=== PATIENT | female | born 1970 | race Caucasian/White ===

== ENCOUNTER 2018-08-04 20:33 | Inpatient (IN) | payer OTHER, SELFPAY ==
[2018-08-04 20:34] VITALS: BP 130/79; PULSE 125; RESP 18; TEMP 38.2; O2SAT 94; BMI 21.7
--- NOTE | 2018-08-04 21:35 | RAD_ITS ---
STUDY: X-RAY CHEST REASON FOR EXAM: Female, 48 years old. Cough and fever. TECHNIQUE: Frontal and lateral views of the chest. COMPARISON: None. FINDINGS: The lungs are clear and expanded. There is no demonstrated pleural abnormality. Normal size heart. Normal mediastinum and yudelka. Normal visualized pulmonary arteries. Normal visualized aortic arch and descending thoracic aorta. Normal visualized thoracic spine. Normal visualized ribs, clavicles, and shoulders. There is no demonstrated abnormality of the visualized soft tissue structures of the upper abdomen. RAD/Chest PA and Lateral IMPRESSION: Normal x-ray examination of the chest. Electronically Signed: Paul Leo MD at 22:00 EST , Service support ,
--- NOTE | 2018-08-04 21:57 | ED.DCSUM_ITS ---
- ER Visit Summary Date of Service: 08/04/18 Chief Complaint: Cough History of Present Illness: The patient is a 48 F presenting with cough, shortness of breath. She states this has been ongoing for the past month. She initially was out of town and was seen by an out-of-town nurse practitioner. She was given amoxicillin and prednisone. She states she these medications. She went to urgent care 2 weeks ago was given doxycycline and prednisone. She also finished these medications. She continues to have wheezing and cough. She complains of subjective fever. She denies chest pain. Denies other complaints. Physical Examination: Vitals are stable. Temperature 100.7, heart rate 125. alert no acute distress. HEENT exam is unremarkable. Neck is supple. Lungs are expiratory wheezing bilaterally. Heart is regular rate and rhythm. Abdomen is soft nontender nondistended. Extremities are unremarkable. Skin is warm and dry. No focal neurologic deficit. Remainder of exam is unremarkable. Emergency Department Course and Treatment: Patient was given albuterol, Atrovent aerosol. While in the ED her pulse ox checked dropped to 84-86% on room air. Chest x-ray shows no acute process. Influenza negative. Hemoglobin 11.6. Chemistries unremarkable. D-dimer negative. She was given Solu-Medrol IV. Discussed with the hospitalist for admission. Disposition: Admission Impression: Asthma exacerbation, hypoxia, URI, failed outpatient treatment This note was generated with [employer] dictation software. It may contain incorrect words, spelling, and punctuation that were not noted in review of the chart prior to signing ED Disposition - Plan for ED Patient: Chief Complaint: Cold Sx Referrals: Hali Baca MD [Primary Care Provider] -
[2018-08-04] MEDS: Albuterol 2.5 MG/3 ML VIAL.NEB. INHALATION ×2 (22:02)
[2018-08-04] MEDS: Ipratropium/Albuterol Sulfate 3 ML AMPUL.NEB INHALATION (22:02)
[2018-08-04 22:03] VITALS: PULSE 122; RESP 18
[2018-08-04] MEDS: Ibuprofen 600 MG Tablet PO (22:32)
[2018-08-04 22:34] VITALS: BP 112/73; PULSE 130; RESP 16; TEMP 37.6; O2SAT 88
[2018-08-04 22:37] VITALS: O2SAT 88
[2018-08-04 22:47] VITALS: O2SAT 92
[2018-08-04 22:53] VITALS: BP 130/76; PULSE 126; RESP 16; O2SAT 92
[2018-08-04 23:00] LABS: Absolute Lymphocyte Count 0.89 X10^3/ul (0.83-4.51); Absolute Neutrophil Count 6.7 X10^3/uL (2.0-7.7); Basophil# 0.02 X10^3/uL; Basophil% 0.2 % (0-1); Eosinophil# 0.03 X10^3/uL; Eosinophils% 0.4 % (0-5); Hemoglobin 11.6 g/dl (12.0-15.0); Lymphocyte # 0.89 X10^3/ul (4.0); Mean Corp Hgb Conc 30.5 g/gl (32-36); Mean Corpuscular Hgb 27.6 pg (27.0-32.0); Mean Corpuscular Volume 90.3 fL (81-99); Monocyte# 0.38 X10^3/uL; Monocyte% 4.7 % (0-10); Neutrophil # 6.72 X10^3/uL (2.7-7.7); Neutrophil % 83.5 % (47-70); Platelet Count 277 K/mm3 (150-450); RBC Distribution Width CV 15.5 % (11.6-14.6); RBC Distribution Width SD 50.8 fl (35.1-43.9); Red Blood Count 4.21 M/mm3 (4.2-5.4); White Blood Count 8.1 K/mm3 (4.4-11.0)
[2018-08-04 23:10] LABS: Anion Gap 9 (5-15); BUN 6 mg/dL (7-18); BUN/Creat Ratio 11.6 RATIO (10-20); Calcium,Total 8.4 mg/dL (8.5-10.1); Chloride 101 mmol/L (98-107); Creatinine, Serum 0.52 mg/dL (0.55-1.02); EST Glomerular Filtration Rate 136 mL/min (>60); Est Glom Filt Rate - Afr Amer 164 mL/min (>60); Glucose 114 mg/dL (74-106); Potassium 3.5 mmol/L (3.5-5.1); Sodium Level 135 mmol/L (136-145)
[2018-08-04 23:14] LABS: POSITIVE COUNT NO; POSITIVE DIFFERENTIAL NO; POSITIVE MORPHOLOGY NO
[2018-08-04 23:23] LABS: D-Dimer Quantitative (DVT/PE) 0.32 FEU/ug/m (0.27-0.49)
--- NOTE | 2018-08-04 23:31 | HP.PCM_ITS ---
Problem List (1) Asthma exacerbation Status: Acute Qualifiers: Asthma severity: unspecified severity Asthma persistence: unspecified Qualified Code(s): J45.901 - Unspecified asthma with (acute) exacerbation (2) Hypoxia Status: Acute (3) Hypothyroidism Status: Chronic Qualifiers: Hypothyroidism type: unspecified Qualified Code(s): E03.9 - Hypothyroidism, unspecified (4) Anxiety and depression Status: Chronic (5) Tobacco use Status: Chronic History of Present Illness Date of Admission: 08/04/18 Chief Complaint: Cough, Dyspnea, Wheezing The patient is a 48 y/o F w/ PMHx: Asthma, Hypothyroidism, Anxiety and Depression, Prolonged Cigarette Tobacco usage who presents to the [facility] ED on 08/04/18 with history of onset ~ 2 weeks prior URI symptoms including harsh dry cough, dyspnea, wheezing as well as nausea, emesis, diarrhea, myalgias and arthralgias but seems to improve however recurrent ongoing progressively worsening dyspnea, wheezing as well as congestion and dry harsh cough despite 2 rounds of antibiotic therapy per urgent care, amoxicillin and doxycycline as well as prednisone course x2. She denies having ever seen pulmonary medicine. She notes that she is attempting tobacco cessation and states she is currently wearing a 21 mg nicotine patch. In the emergency room workup included T 99.7, heart rate 130, BP 112/73, respiratory rate 16, initial oxygenation 88% on room air with improvement to 95% on 2 L nasal cannula, CBC with WBC 8.1, hemoglobin 11.6, platelet 277 with left shift, d-dimer 0.32, BMP with sodium 135, BUN/Cr 6/0.52, glucose 114, rapid influenza unremarkable, respiratory viral panel pending, chest x-ray with no acute cardiopulmonary findings. 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 Past Medical History Past Medical History (Chronic Problems): Chronic Problems Hypothyroidism (Chronic) Anxiety and depression (Chronic) Tobacco use (Chronic) Allergies hydrocodone bitartrate [From Vicodin] Allergy (Verified 06/05/14 12:23) Angioedema shellfish derived Allergy (Verified 02/08/14 18:16) Anaphylaxis Home Medications: Ambulatory Orders Medication Instructions Recorded Lorazepam [Ativan] 0.5 mg PO DAILY PRN PRN 06/02/14 Multivitamins,Therapeutic 1 tablet PO DAILY 06/02/14 [Multivitamin] Potassium (Otc) [Potassium OTC] 99 mg PO DAILY 06/02/14 Levothyroxine [Synthroid] 75 mcg PO DAILY 08/04/18 Surgical History: - - x2, right knee arthroscopic surgery, cone procedure for cervical dysplasia. Psychiatric History: Anxiety, Depression [employer] History: No pertinent [employer] history Lives: Spouse/ Significant Other Smoking Status: Current every day smoker - Ongoing cigarette tobacco usage 1.5 pack/day since age 19 although she does note she did quit for approximately 4.5 years. Tobacco Use: Cigarettes Alcohol: Occasional Drugs: None - *Family History Maternal History Items: Diabetes, Heart Disease, Hypertension Paternal History Items: Diabetes, Heart Disease, Hypertension Review of Systems Constitutional: Reports: Anorexia, Fever, Malaise, Weakness, Fatigue. Denies: Chills, Weight Change HEENT: Reports: Head Aches, Post Nasal Drip, Sinus Congestion, Sinus Drainage, Sore Throat Cardiovascular: Denies: Chest Pain, Palpitations Respiratory: Reports: Cough, Shortness of Breath, Shortness of breath at rest, Shortness of breath upon exertion, Sputum production, Wheezing Gastrointestinal: Reports: Diarrhea, Nausea, Vomiting. Denies: Abdominal Pain Genitourinary: Denies: Dysuria Musculoskeletal: Reports: Joint Pain, Muscle pain. Denies: Joint Tenderness Skin: Denies: Rash, Wounds Neurological: Denies: Numbness, Tingling, Focal weakness Psychiatric: Reports: Anxiety, Depression. Denies: Homicidal Ideations, Suicidal Ideations Hematologic/ Lymphatic: Denies: Easy Bruising, Easy Bleeding VTE Information - Inpt Only VTE Present on Admission: No VTE Mechan Device Prophylaxis: SCD's VTE Pharm Prophylaxis ordered?: Yes Patient Problems: Active and Suspected Problems Asthma exacerbation (Acute) Hypoxia (Acute) Subjective: Seated upright in the ED, fatigued appearance, no acute distress. Objective: Physical Examination: General: awake, alert, oriented x 3 and cooperative, seated upright in the ED bed in no apparent distress, fatigued appearance. Skin: normal color, turgor, no icterus, cyanosis. HEENT: AT/NC, EOMI, PERRLA, dry MM, no carotid bruits or JVD noted. Lungs: Diminished BS BL, > bases, diffuse rhonchi, diffuse wheezing. Heart: Tachycardic with regular rhythm; no gallop, rub audible. Abdomen: soft, NTTP, ND, normal BS, no HSM. Extremities: no cyanosis, clubbing, or edema. Neurological: patient awake, alert, oriented x 3; cognitive function intact; pupils equally reactive to light and accomodation; cranial nerves II-XII grossly normal, moving all 4 extremities, no focal deficits, strength severely globally decreased secondary to acute presentation. Psychiatric: affect appears flat, fatigued, no acute evidence of depressive or anxiety feelings. - Physical Exam Vital Signs Temp Pulse Resp BP Pulse Ox 99.7 F H 126 H 16 130/76 H 92 08/04/18 22:34 08/04/18 22:53 08/04/18 22:53 08/04/18 22:53 08/04/18 22:53 Oxygen Flow Rate (L/min) 2 Oxygen Delivery Method Nasal Cannula Weight: 110 lb 14.28 oz Body Mass Index (BMI) 21.7 Microbiology Past 72 Hours 08/04/18 21:30 Influenza Types A,B Direct FA (CODI) - Final Mucosa - Nasopharyngeal Laboratory Tests Past 24 Hrs 08/04/18 08/04/18 08/04/18 22:50 22:50 22:50 WBC 8.1 RBC 4.21 Hgb 11.6 L Hct 38.0 MCV 90.3 MCH 27.6 MCHC 30.5 L RDW 15.5 H RDW Differential 50.8 H Plt Count 277 MPV 9.0 Immature Gran % (Auto) 0.200 Neut % (Auto) 83.5 H Lymph % (Auto) 11.0 L [place] % (Auto) 4.7 Eos % (Auto) 0.4 Baso % (Auto) 0.2 Absolute Neuts (auto) 6.7 Absolute Lymphs (auto) 0.89 Total Counted Not Reportable D-Dimer Quant (PE/DVT) 0.32 Sodium 135 L Potassium 3.5 Chloride 101 Carbon Dioxide 25.0 Anion Gap 9 BUN 6 L Creatinine 0.52 L Estim Creat Clear Calc 97.10 Est GFR (MDRD) Af Amer 164 Est GFR (MDRD) Non-Af 136 BUN/Creatinine Ratio 11.6 Glucose 114 H Calcium 8.4 L Assessment/Plan All Active Problems Asthma exacerbation (Acute) Hypoxia (Acute) The patient is a 48 y/o F w/ PMHx: Asthma, Hypothyroidism, Anxiety and Depression, Prolonged Cigarette Tobacco usage who presents to the [facility] ED on 08/04/18 with history of onset ~ 2 weeks prior URI symptoms including harsh dry cough, dyspnea, wheezing as well as nausea, emesis, diarrhea, myalgias and arthralgias but seems to improve however recurrent ongoing progressively worsening dyspnea, wheezing as well as congestion and dry harsh cough despite 2 rounds of antibiotic therapy per urgent care, amoxicillin and doxycycline as well as prednisone course x2. (1) Hypoxia secondary to Acute on Chronic Asthma, Possible COPD exacerbation secondary to suspected Acute Viral Syndrome: CXR w/ chronic changes, CBC on admission w/ no marked WBC elevation with mild shift, no respiratory distress noted upon evaluation but noted hypoxia upon presentation, improved with oxygen supplementation. Will admit to MS telemetry given ongoing notable tachycardia although possible secondary to aerosols in addition, maintain on oxygen with wean as tolerated to room air, continue ATC duonebs, PRN albuterol, IV methylprednisolone with prednisone transition, HOB, IS parameters, defer abx as suspected viral, pending respiratory viral panel, obtain sputum cultures. Would benefit from pulmonary evaluation after discharge with PFTs once clinically appropriate. (2) Hyponatremia, mild, suspected hypovolemia: Admission sodium mildly decreased, 135, likely secondary to dehydration with poor intake, recent viral syndrome with GI losses although had improved, continue to hydrate, repeat BMP in a.m. (3) Hypothyroidism: Continue home synthroid regimen. (4) Tobacco Abuse: Encouraged cessation, inpatient consultation per RT, NR if desired. (5) Anxiety and depression: We will continue home Ativan regimen, encourage consideration SSRI outpatient especially given concurrent depression and anxiety this would be first-line. (6) VT prophylaxis: SCD, Lovenox. Code Visit Inpatient E&M: 25534 Init Hosp L3
[2018-08-05] VITALS (17 sets, daily range): BP systolic 97–118; BP diastolic 55–78; PULSE 98–135; RESP 16–24; TEMP 36.6–37.1; O2SAT 94–99; BMI 21.2; BMI 21.3
[2018-08-05] MEDS: MethylPREDNISolone 125 MG/2 ML Vial IV (00:10)
[2018-08-05] MEDS: 0.9% Normal Saline 1,000 ML 125 ML IV ×2 (01:37→08:53)
[2018-08-05] MEDS: Ipratropium/Albuterol Sulfate 3 ML AMPUL.NEB INHALATION ×6 (02:20→22:43)
[2018-08-05] MEDS: Levothyroxine 75 MCG Tablet PO (06:14)
[2018-08-05 06:35] LABS: Anion Gap 11 (5-15); BUN 7 mg/dL (7-18); Calcium,Total 8.4 mg/dL (8.5-10.1); Chloride 105 mmol/L (98-107); Creatinine, Serum 0.87 mg/dL (0.55-1.02); EST Glomerular Filtration Rate 74 mL/min (>60); Est Glom Filt Rate - Afr Amer 90 mL/min (>60); Estimated Creatinine Clearance 61.99 ml/min; Glucose 193 mg/dL (74-106); Sodium Level 140 mmol/L (136-145)
[2018-08-05 06:47] LABS: Absolute Lymphocyte Count 0.31 X10^3/ul (0.83-4.51); Absolute Neutrophil Count 5.6 X10^3/uL (2.0-7.7); Basophil# 0.02 X10^3/uL; Basophil% 0.3 % (0-1); Hematocrit 37.3 % (37-47); Hemoglobin 11.6 g/dl (12.0-15.0); Lymphocyte # 0.31 X10^3/ul (4.0); Lymphocyte % 5.1 % (19-41); Mean Corp Hgb Conc 31.1 g/gl (32-36); Mean Corpuscular Hgb 28.3 pg (27.0-32.0); Mean Platelet Vol. 9.3 fl (6.2-12.0); Monocyte# 0.12 X10^3/uL; Neutrophil # 5.62 X10^3/uL (2.7-7.7); Neutrophil % 92.4 % (47-70); Platelet Count 288 K/mm3 (150-450); RBC Distribution Width CV 15.5 % (11.6-14.6); RBC Distribution Width SD 50.7 fl (35.1-43.9); White Blood Count 6.1 K/mm3 (4.4-11.0)
[2018-08-05 06:50] LABS: Differential Indicated SCAN CRITERIA MET; POSITIVE COUNT NO; POSITIVE DIFFERENTIAL YES; POSITIVE MORPHOLOGY NO
[2018-08-05] MEDS: Famotidine 20 MG Tablet PO ×2 (08:54→22:19)
[2018-08-05] MEDS: guaiFENesin 1,200 MG Tablet 1200 MG PO ×2 (08:54→22:18)
[2018-08-05] MEDS: Acetaminophen 325 MG Tablet 650 MG PO ×2 (08:54→16:50)
[2018-08-05] MEDS: Multivitamins,Therapeutic Tablet 1 TABLET PO (08:54)
[2018-08-05] MEDS: Enoxaparin 40 MG/0.4 ML Syringe SC (08:55)
--- NOTE | 2018-08-05 12:41 | CASEMGMT ---
RN CM Assessment Presentation: cough, dyspnea, wheezing. Asthma exacerbation PCP: Dr. Baca [facility] Insurance: MMO TPA Prescription Benefit: yes LNOK: Guille Berg Living Arrangements: Lives independently with Transportation: drives DME/HHC: nebulizer, states her medication is from her family member. she does not have own script for aeresols. DC PLAN: Home on dc. If aeresols are needed, pt will need prescription. Sadie HALL RN ACM
--- NOTE | 2018-08-05 13:15 | PCM.PN.HOSP ---
Patient Problems: Active and Suspected Problems Asthma exacerbation (Acute) Hypoxia (Acute) Subjective: Patient was seen and examined. She feels improved. Not on oxygen, denies any fever or chills. Been coughing a lot. Chest discomfort with frequent coughing. Vitals/I&O's: Vital Signs Temp Pulse Resp BP Pulse Ox 98.2 F 101 H 20 H 116/78 95 08/05/18 10:19 08/05/18 10:57 08/05/18 10:57 08/05/18 10:19 08/05/18 10:19 Oxygen Flow Rate (L/min) 96 Oxygen Delivery Method Room Air Weight: 48.6 kg Body Mass Index (BMI) 21.2 Intake and Output for Last 24 Hours 08/03/18 08/04/18 08/05/18 23:59 23:59 23:59 Intake Total 979 / 979 Balance 979 / 979 General: Alert, Oriented x3, Cooperative, No apparent distress HEENT: Atraumatic, PERRLA, EOMI, Normocephalic Oral: Moist Mucosa Neck: Supple, No JVD, Negative Carotid Bruits Lungs: Diminished, Wheezes - ++ Cardiovascular: Regular rate, Regular Rhythm, Normal S1, Normal S2, No murmurs Abdomen: Bowel Sounds Present, Soft, Non Tender, Non-Distended, No Hepato-splenomegaly Extremities: No edema Skin: No rashes, No breakdown Musculoskeletal: No Tenderness to Palpation of Joints or Extremities Lymphatic: No Cervical, Supraclavicular, or Inguinal Adenopathy Neurological: Cranial nerves II-XII grossly intact, Neuro grossly intact Psych/Mental Status: Normal Affect, Appropriate Microbiology Past 72 Hours 08/05/18 06:50 Sputum, Expectorated/Coughed Gram Stain - Final 08/04/18 21:30 Mucosa - Nasopharyngeal Influenza Types A,B Direct FA (CODI) - Final Laboratory Results 08/04/18 22:50: WBC 8.1, RBC 4.21, Hgb 11.6 L, Hct 38.0, MCV 90.3, MCH 27.6, MCHC 30.5 L, RDW 15.5 H, RDW Differential 50.8 H, Plt Count 277, MPV 9.0, Immature Gran % (Auto) 0.200, Neut % (Auto) 83.5 H, Lymph % (Auto) 11.0 L, [place] % (Auto) 4.7, Eos % (Auto) 0.4, Baso % (Auto) 0.2, Absolute Neuts (auto) 6.7, Absolute Lymphs (auto) 0.89, Total Counted Not Reportable 08/04/18 22:50: D-Dimer Quant (PE/DVT) 0.32 08/04/18 22:50: Sodium 135 L, Potassium 3.5, Chloride 101, Carbon Dioxide 25.0, Anion Gap 9, BUN 6 L, Creatinine 0.52 L, Estim Creat Clear Calc 97.10, Est GFR (MDRD) Af Amer 164, Est GFR (MDRD) Non-Af 136, BUN/Creatinine Ratio 11.6, Glucose 114 H, Calcium 8.4 L 08/05/18 05:40: WBC 6.1, RBC 4.10 L, Hgb 11.6 L, Hct 37.3, MCV 91.0, MCH 28.3, MCHC 31.1 L, RDW 15.5 H, RDW Differential 50.7 H, Plt Count 288, MPV 9.3, Immature Gran % (Auto) 0.200, Neut % (Auto) 92.4 H, Lymph % (Auto) 5.1 L, [place] % (Auto) 2.0, Eos % (Auto) 0.0, Baso % (Auto) 0.3, Absolute Neuts (auto) 5.6, Absolute Lymphs (auto) 0.31 L, Total Counted Not Reportable 08/05/18 05:40: Sodium 140, Potassium 4.0, Chloride 105, Carbon Dioxide 24.0, Anion Gap 11, BUN 7, Creatinine 0.87, Estim Creat Clear Calc 61.99, Est GFR (MDRD) Af Amer 90, Est GFR (MDRD) Non-Af 74, BUN/Creatinine Ratio 8.0 L, Glucose 193 H, Calcium 8.4 L Current Medications Acetaminophen (Tylenol) 650 mg PO Q6H PRN PRN PRN Reason: Mild Pain (scale 0-3)/T>100.7 Last Admin: 08/05/18 08:54 Dose: 650 mg Al Hydroxide/Mg Hydroxide (Mylanta Ii) 30 ml PO Q6H PRN PRN PRN Reason: Gastric burning Albuterol Sulfate (Ventolin Aerosols) 2.5 mg INHALATION Q2H PRN PRN PRN Reason: SHORTNESS OF BREATH Albuterol/Ipratropium (Duoneb) 3 ml INHALATION Q4H.RT [facility] Last Admin: 08/05/18 10:57 Dose: 3 ml Enoxaparin Sodium (Lovenox) 40 mg SC DAILY@1000 [facility] Last Admin: 08/05/18 08:55 Dose: 40 mg Famotidine (Pepcid) 20 mg PO BID [facility] Last Admin: 08/05/18 08:54 Dose: 20 mg Guaifenesin (Mucinex) 1,200 mg PO BID [facility] Last Admin: 08/05/18 08:54 Dose: 1,200 mg Guaifenesin (Robitussin Dm) 10 ml PO Q6H PRN PRN PRN Reason: COUGH Hydralazine HCl (Apresoline Iv) 10 mg IV Q4H PRN PRN PRN Reason: SBP > 160 Levothyroxine Sodium (Synthroid) 75 mcg PO DAILY@0600 [facility] Last Admin: 08/05/18 06:14 Dose: 75 mcg Lorazepam (Ativan) 0.5 mg PO DAILY PRN PRN PRN Reason: ANXIETY Magnesium Hydroxide (Milk Of Magnesia) 30 ml PO DAILY PRN PRN PRN Reason: Constipation Methylprednisolone (Solu-Medrol) 40 mg IV Q8 [facility] Last Admin: 08/05/18 06:14 Dose: 40 mg [facility] Last Admin: 08/05/18 08:54 Dose: 1 tablet Nicotine (Nicoderm Cq (Pbkc)) 21 mg TRANSDERM. DAILY [facility] Last Admin: 08/05/18 08:53 Dose: 21 mg Nicotine Polacrilex (Rugby Nicotine (Bkc)) 2 mg PO Q2H PRN PRN PRN Reason: Nicotine Craving Ondansetron HCl (Zofran) 4 mg IV Q8H PRN PRN PRN Reason: NAUSEA Sodium Chloride () 5 - 15 ml IV UD PRN PRN Reason: SALINE FLUSH Medical Necessity - Tobacco Use Smoking Status: Current every day smoker Tobacco Use: Cigarettes Assessment/Plan All Active Problems Asthma exacerbation (Acute) Hypoxia (Acute) 48-year-old female past medical history of asthma, hypertension, anxiety, depression, nicotine dependence who comes in with complaints of cough, dyspnea and wheezes. Admitting chest x-ray shows no pneumonia. 1. Acute asthma exacerbation, hypoxia is resolved, patient appears minimally improved, still has wheezes, respiratory panel is pending, will continue on IV Solu-Medrol, breathing treatments, follow-up with sputum cultures, viral panel. 2. Hyponatremia, hypovolemic secondary to dehydration, resolved with IV fluids 3. Hypothyroidism, on Synthroid 4. Nicotine dependence, advised to quit, on replacement 5. Anxiety/depression, on prn ativan 6. DVT prophylaxis with Lovenox subcu Code Visit Inpatient E&M: 49780 Subs Hosp L2
--- NOTE | 2018-08-05 13:21 | PN_ITS ---
Patient Problems: Active and Suspected Problems Asthma exacerbation (Acute) Hypoxia (Acute) Subjective: Patient was seen and examined. She feels improved. Not on oxygen, denies any fever or chills. Been coughing a lot. Chest discomfort with frequent coughing. Vitals/I&O's: Vital Signs Temp Pulse Resp BP Pulse Ox 98.2 F 101 H 20 H 116/78 95 08/05/18 10:19 08/05/18 10:57 08/05/18 10:57 08/05/18 10:19 08/05/18 10:19 Oxygen Flow Rate (L/min) 96 Oxygen Delivery Method Room Air Weight: 48.6 kg Body Mass Index (BMI) 21.2 Intake and Output for Last 24 Hours 08/03/18 08/04/18 08/05/18 23:59 23:59 23:59 Intake Total 979 / 979 Balance 979 / 979 General: Alert, Oriented x3, Cooperative, No apparent distress HEENT: Atraumatic, PERRLA, EOMI, Normocephalic Oral: Moist Mucosa Neck: Supple, No JVD, Negative Carotid Bruits Lungs: Diminished, Wheezes - ++ Cardiovascular: Regular rate, Regular Rhythm, Normal S1, Normal S2, No murmurs Abdomen: Bowel Sounds Present, Soft, Non Tender, Non-Distended, No Hepato- splenomegaly Extremities: No edema Skin: No rashes, No breakdown Musculoskeletal: No Tenderness to Palpation of Joints or Extremities Lymphatic: No Cervical, Supraclavicular, or Inguinal Adenopathy Neurological: Cranial nerves II-XII grossly intact, Neuro grossly intact Psych/Mental Status: Normal Affect, Appropriate Microbiology Past 72 Hours 08/05/18 06:50 Sputum, Expectorated/Coughed Gram Stain - Final 08/04/18 21:30 Mucosa - Nasopharyngeal Influenza Types A,B Direct FA (CODI) - Final Laboratory Results 08/04/18 22:50: WBC 8.1, RBC 4.21, Hgb 11.6 L, Hct 38.0, MCV 90.3, MCH 27.6, MCHC 30.5 L, RDW 15.5 H, RDW Differential 50.8 H, Plt Count 277, MPV 9.0, Immature Gran % (Auto) 0.200, Neut % (Auto) 83.5 H, Lymph % (Auto) 11.0 L, [place] % (Auto) 4.7, Eos % (Auto) 0.4, Baso % (Auto) 0.2, Absolute Neuts (auto) 6.7, Absolute Lymphs (auto) 0.89, Total Counted Not Reportable 08/04/18 22:50: D-Dimer Quant (PE/DVT) 0.32 08/04/18 22:50: Sodium 135 L, Potassium 3.5, Chloride 101, Carbon Dioxide 25.0, Anion Gap 9, BUN 6 L, Creatinine 0.52 L, Estim Creat Clear Calc 97.10, Est GFR (MDRD) Af Amer 164, Est GFR (MDRD) Non-Af 136, BUN/Creatinine Ratio 11.6, Glucose 114 H, Calcium 8.4 L 08/05/18 05:40: WBC 6.1, RBC 4.10 L, Hgb 11.6 L, Hct 37.3, MCV 91.0, MCH 28.3, MCHC 31.1 L, RDW 15.5 H, RDW Differential 50.7 H, Plt Count 288, MPV 9.3, Immature Gran % (Auto) 0.200, Neut % (Auto) 92.4 H, Lymph % (Auto) 5.1 L, [place] % (Auto) 2.0, Eos % (Auto) 0.0, Baso % (Auto) 0.3, Absolute Neuts (auto) 5.6, Absolute Lymphs (auto) 0.31 L, Total Counted Not Reportable 08/05/18 05:40: Sodium 140, Potassium 4.0, Chloride 105, Carbon Dioxide 24.0, Anion Gap 11, BUN 7, Creatinine 0.87, Estim Creat Clear Calc 61.99, Est GFR (MDRD) Af Amer 90, Est GFR (MDRD) Non-Af 74, BUN/Creatinine Ratio 8.0 L, Glucose 193 H, Calcium 8.4 L Current Medications Acetaminophen (Tylenol) 650 mg PO Q6H PRN PRN PRN Reason: Mild Pain (scale 0-3)/T>100.7 Last Admin: 08/05/18 08:54 Dose: 650 mg Al Hydroxide/Mg Hydroxide (Mylanta Ii) 30 ml PO Q6H PRN PRN PRN Reason: Gastric burning Albuterol Sulfate (Ventolin Aerosols) 2.5 mg INHALATION Q2H PRN PRN PRN Reason: SHORTNESS OF BREATH Albuterol/Ipratropium (Duoneb) 3 ml INHALATION Q4H.RT [facility] Last Admin: 08/05/18 10:57 Dose: 3 ml Enoxaparin Sodium (Lovenox) 40 mg SC DAILY@1000 [facility] Last Admin: 08/05/18 08:55 Dose: 40 mg Famotidine (Pepcid) 20 mg PO BID [facility] Last Admin: 08/05/18 08:54 Dose: 20 mg Guaifenesin (Mucinex) 1,200 mg PO BID [facility] Last Admin: 08/05/18 08:54 Dose: 1,200 mg Guaifenesin (Robitussin Dm) 10 ml PO Q6H PRN PRN PRN Reason: COUGH Hydralazine HCl (Apresoline Iv) 10 mg IV Q4H PRN PRN PRN Reason: SBP > 160 Levothyroxine Sodium (Synthroid) 75 mcg PO DAILY@0600 [facility] Last Admin: 08/05/18 06:14 Dose: 75 mcg Lorazepam (Ativan) 0.5 mg PO DAILY PRN PRN PRN Reason: ANXIETY Magnesium Hydroxide (Milk Of Magnesia) 30 ml PO DAILY PRN PRN PRN Reason: Constipation Methylprednisolone (Solu-Medrol) 40 mg IV Q8 [facility] Last Admin: 08/05/18 06:14 Dose: 40 mg [facility]) [facility] Last Admin: 08/05/18 08:54 Dose: 1 tablet Nicotine (Nicoderm Cq (Pbkc)) 21 mg TRANSDERM. DAILY [facility] Last Admin: 08/05/18 08:53 Dose: 21 mg Nicotine Polacrilex (Rugby Nicotine (Bkc)) 2 mg PO Q2H PRN PRN PRN Reason: Nicotine Craving Ondansetron HCl (Zofran) 4 mg IV Q8H PRN PRN PRN Reason: NAUSEA Sodium Chloride () 5 - 15 ml IV UD PRN PRN Reason: SALINE FLUSH Medical Necessity - Tobacco Use Smoking Status: Current every day smoker Tobacco Use: Cigarettes Assessment/Plan All Active Problems Asthma exacerbation (Acute) Hypoxia (Acute) 48-year-old female past medical history of asthma, hypertension, anxiety, depression, nicotine dependence who comes in with complaints of cough, dyspnea and wheezes. Admitting chest x-ray shows no pneumonia. 1. Acute asthma exacerbation, hypoxia is resolved, patient appears minimally improved, still has wheezes, respiratory panel is pending, will continue on IV Solu-Medrol, breathing treatments, follow-up with sputum cultures, viral panel. 2. Hyponatremia, hypovolemic secondary to dehydration, resolved with IV fluids 3. Hypothyroidism, on Synthroid 4. Nicotine dependence, advised to quit, on replacement 5. Anxiety/depression, on prn ativan 6. DVT prophylaxis with Lovenox subcu Code Visit Inpatient E&M: 41775 Subs Hosp L2
[2018-08-05] MEDS: 0.9% NaCl Peripheral Flush Adult/Peds IV (15:11)
[2018-08-05] MEDS: guaiFENesin Dm 10 ML UDC PO ×2 (15:15→22:22)
[2018-08-05] MEDS: LORazepam 0.5 MG Tablet PO (16:50)
[2018-08-05] MEDS: oxyCODONE 5 MG Tablet PO ×2 (22:18→23:18)
[2018-08-05] MEDS: 0.9% Normal Saline 1,000 ML 999 ML IV (22:19)
[2018-08-06] VITALS (12 sets, daily range): BP systolic 93–130; BP diastolic 55–79; PULSE 91–120; RESP 16–20; TEMP 36.1–36.8; O2SAT 93–97
[2018-08-06] MEDS: Ketorolac 30 MG/ML Syringe IV ×4 (00:27→21:34)
[2018-08-06] MEDS: Levothyroxine 75 MCG Tablet PO (06:31)
[2018-08-06] MEDS: Ipratropium/Albuterol Sulfate 3 ML AMPUL.NEB INHALATION ×5 (07:55→22:50)
[2018-08-06] MEDS: oxyCODONE 5 MG Tablet PO (08:47)
[2018-08-06] MEDS: Famotidine 20 MG Tablet PO ×2 (08:47→21:34)
[2018-08-06] MEDS: guaiFENesin Dm 10 ML UDC PO (08:47)
[2018-08-06] MEDS: Multivitamins,Therapeutic Tablet 1 TABLET PO (08:47)
--- NOTE | 2018-08-06 09:54 | PCM.PN.HOSP ---
Patient Problems: Active and Suspected Problems Asthma exacerbation (Acute) Hypoxia (Acute) Subjective: Patient was seen and examined. Still very SOB. Back on 3L of oxygen. Cough is persistent. Denies fever or chills. Objective: Physical exam: General: Alert, Oriented x3, Cooperative, No apparent distress HEENT: Atraumatic, PERRLA, EOMI, Normocephalic Oral: Moist Mucosa Neck: Supple, No JVD, Negative Carotid Bruits Lungs: Diminished, Wheezes - ++ Cardiovascular: Regular rate, Regular Rhythm, Normal S1, Normal S2, No murmurs Abdomen: Bowel Sounds Present, Soft, Non Tender, Non-Distended, No Hepato-splenomegaly Extremities: No edema Skin: No rashes, No breakdown Musculoskeletal: No Tenderness to Palpation of Joints or Extremities Lymphatic: No Cervical, Supraclavicular, or Inguinal Adenopathy Neurological: Cranial nerves II-XII grossly intact, Neuro grossly intact Psych/Mental Status: Normal Affect, Appropriate Vitals/I&O's: Vital Signs Temp Pulse Resp BP Pulse Ox 98.2 F 120 H 20 H 101/62 97 08/06/18 08:37 08/06/18 08:37 08/06/18 08:37 08/06/18 08:37 08/06/18 08:37 Oxygen Flow Rate (L/min) 2.5 Oxygen Delivery Method Nasal Cannula Weight: 48.6 kg Body Mass Index (BMI) 21.2 Intake and Output for Last 24 Hours 08/04/18 08/05/18 08/06/18 23:59 23:59 23:59 Intake Total 3428 / 3428 400 / 400 Balance 3428 / 3428 400 / 400 Microbiology Past 72 Hours 08/04/18 23:52 Mucosa - Nasopharyngeal Respiratory Panel (PCR) - Final RSV B 08/05/18 06:50 Sputum, Expectorated/Coughed Gram Stain - Final 08/04/18 21:30 Mucosa - Nasopharyngeal Influenza Types A,B Direct FA (CODI) - Final Current Medications Acetaminophen (Tylenol) 650 mg PO Q6H PRN PRN PRN Reason: Mild Pain (scale 0-3)/T>100.7 Last Admin: 08/05/18 16:50 Dose: 650 mg Al Hydroxide/Mg Hydroxide (Mylanta Ii) 30 ml PO Q6H PRN PRN PRN Reason: Gastric burning Albuterol Sulfate (Ventolin Aerosols) 2.5 mg INHALATION Q2H PRN PRN PRN Reason: SHORTNESS OF BREATH Albuterol/Ipratropium (Duoneb) 3 ml INHALATION Q4H.RT [facility] Last Admin: 08/06/18 07:55 Dose: 3 ml Enoxaparin Sodium (Lovenox) 40 mg SC DAILY@1000 [facility] Last Admin: 08/05/18 08:55 Dose: 40 mg Famotidine (Pepcid) 20 mg PO BID [facility] Last Admin: 08/06/18 08:47 Dose: 20 mg Guaifenesin (Mucinex) 1,200 mg PO BID [facility] Last Admin: 08/05/18 22:18 Dose: 1,200 mg Guaifenesin (Robitussin Dm) 10 ml PO Q6H PRN PRN PRN Reason: COUGH Last Admin: 08/06/18 08:47 Dose: 10 ml Hydralazine HCl (Apresoline Iv) 10 mg IV Q4H PRN PRN PRN Reason: SBP > 160 Ketorolac Tromethamine (Toradol) 30 mg IV Q8 [facility] Stop: 08/07/18 06:01 Last Admin: 08/06/18 06:31 Dose: 30 mg Levothyroxine Sodium (Synthroid) 75 mcg PO DAILY@0600 [facility] Last Admin: 08/06/18 06:31 Dose: 75 mcg Lorazepam (Ativan) 0.5 mg PO DAILY PRN PRN PRN Reason: ANXIETY Last Admin: 08/05/18 16:50 Dose: 0.5 mg Magnesium Hydroxide (Milk Of Magnesia) 30 ml PO DAILY PRN PRN PRN Reason: Constipation Methylprednisolone (Solu-Medrol) 40 mg IV Q8 [facility] Last Admin: 08/06/18 06:31 Dose: 40 mg Morphine Sulfate () 2 - 4 mg IV Q4H PRN PRN PRN Reason: SEVERE PAIN (6-10/10) [facility] ([facility]) [facility] Last Admin: 08/06/18 08:47 Dose: 1 tablet Nicotine (Nicoderm Cq (Pbkc)) 21 mg TRANSDERM. DAILY [facility] Last Admin: 08/05/18 08:53 Dose: 21 mg Nicotine Polacrilex (Rugby Nicotine (Bkc)) 2 mg PO Q2H PRN PRN PRN Reason: Nicotine Craving Ondansetron HCl (Zofran) 4 mg IV Q8H PRN PRN PRN Reason: NAUSEA Oxycodone HCl (Oxyir) 5 - 10 mg PO Q4H PRN PRN PRN Reason: SEVERE PAIN (6-10/10) Last Admin: 08/06/18 08:47 Dose: 5 mg Sodium Chloride () 5 - 15 ml IV UD PRN PRN Reason: SALINE FLUSH Last Admin: 08/05/18 15:11 Dose: 10 ml Medical Necessity - Tobacco Use Smoking Status: Current every day smoker Tobacco Use: Cigarettes Assessment/Plan All Active Problems Asthma exacerbation (Acute) Hypoxia (Acute) 48-year-old female past medical history of asthma, hypertension, anxiety, depression, nicotine dependence who comes in with complaints of cough, dyspnea and wheezes. Admitting chest x-ray shows no pneumonia. 1. Acute asthma exacerbation secondary to RSV, slowly improving, will continue on breathing treatments, IV steroids 2. Acute hypoxic respiratory insufficiency, patient is back on 3 L of oxygen, secondary to #1, will continue to wean off oxygen, encourage use of incentive spirometer 3. Hyponatremia, hypovolemic secondary to dehydration, resolved with IV fluids 4. Hypothyroidism, on Synthroid 5. Nicotine dependence, advised to quit, on replacement 6. Anxiety/depression, on prn ativan 7. DVT prophylaxis with Lovenox subcu 8. Disposition: Possible Dc in am if improved; may need to be discharged on oxygen, will re-evaluate in am. Code Visit Inpatient E&M: 97320 Subs Hosp L2
--- NOTE | 2018-08-06 09:58 | PN_ITS ---
Patient Problems: Active and Suspected Problems Asthma exacerbation (Acute) Hypoxia (Acute) Subjective: Patient was seen and examined. Still very SOB. Back on 3L of oxygen. Cough is persistent. Denies fever or chills. Objective: Physical exam: General: Alert, Oriented x3, Cooperative, No apparent distress HEENT: Atraumatic, PERRLA, EOMI, Normocephalic Oral: Moist Mucosa Neck: Supple, No JVD, Negative Carotid Bruits Lungs: Diminished, Wheezes - ++ Cardiovascular: Regular rate, Regular Rhythm, Normal S1, Normal S2, No murmurs Abdomen: Bowel Sounds Present, Soft, Non Tender, Non-Distended, No Hepato- splenomegaly Extremities: No edema Skin: No rashes, No breakdown Musculoskeletal: No Tenderness to Palpation of Joints or Extremities Lymphatic: No Cervical, Supraclavicular, or Inguinal Adenopathy Neurological: Cranial nerves II-XII grossly intact, Neuro grossly intact Psych/Mental Status: Normal Affect, Appropriate Vitals/I&O's: Vital Signs Temp Pulse Resp BP Pulse Ox 98.2 F 120 H 20 H 101/62 97 08/06/18 08:37 08/06/18 08:37 08/06/18 08:37 08/06/18 08:37 08/06/18 08:37 Oxygen Flow Rate (L/min) 2.5 Oxygen Delivery Method Nasal Cannula Weight: 48.6 kg Body Mass Index (BMI) 21.2 Intake and Output for Last 24 Hours 08/04/18 08/05/18 08/06/18 23:59 23:59 23:59 Intake Total 3428 / 3428 400 / 400 Balance 3428 / 3428 400 / 400 Microbiology Past 72 Hours 08/04/18 23:52 Mucosa - Nasopharyngeal Respiratory Panel (PCR) - Final RSV B 08/05/18 06:50 Sputum, Expectorated/Coughed Gram Stain - Final 08/04/18 21:30 Mucosa - Nasopharyngeal Influenza Types A,B Direct FA (CODI) - Final Current Medications Acetaminophen (Tylenol) 650 mg PO Q6H PRN PRN PRN Reason: Mild Pain (scale 0-3)/T>100.7 Last Admin: 08/05/18 16:50 Dose: 650 mg Al Hydroxide/Mg Hydroxide (Mylanta Ii) 30 ml PO Q6H PRN PRN PRN Reason: Gastric burning Albuterol Sulfate (Ventolin Aerosols) 2.5 mg INHALATION Q2H PRN PRN PRN Reason: SHORTNESS OF BREATH Albuterol/Ipratropium (Duoneb) 3 ml INHALATION Q4H.RT [facility] Last Admin: 08/06/18 07:55 Dose: 3 ml Enoxaparin Sodium (Lovenox) 40 mg SC DAILY@1000 [facility] Last Admin: 08/05/18 08:55 Dose: 40 mg Famotidine (Pepcid) 20 mg PO BID [facility] Last Admin: 08/06/18 08:47 Dose: 20 mg Guaifenesin (Mucinex) 1,200 mg PO BID [facility] Last Admin: 08/05/18 22:18 Dose: 1,200 mg Guaifenesin (Robitussin Dm) 10 ml PO Q6H PRN PRN PRN Reason: COUGH Last Admin: 08/06/18 08:47 Dose: 10 ml Hydralazine HCl (Apresoline Iv) 10 mg IV Q4H PRN PRN PRN Reason: SBP > 160 Ketorolac Tromethamine (Toradol) 30 mg IV Q8 [facility] Stop: 08/07/18 06:01 Last Admin: 08/06/18 06:31 Dose: 30 mg Levothyroxine Sodium (Synthroid) 75 mcg PO DAILY@0600 [facility] Last Admin: 08/06/18 06:31 Dose: 75 mcg Lorazepam (Ativan) 0.5 mg PO DAILY PRN PRN PRN Reason: ANXIETY Last Admin: 08/05/18 16:50 Dose: 0.5 mg Magnesium Hydroxide (Milk Of Magnesia) 30 ml PO DAILY PRN PRN PRN Reason: Constipation Methylprednisolone (Solu-Medrol) 40 mg IV Q8 [facility] Last Admin: 08/06/18 06:31 Dose: 40 mg Morphine Sulfate () 2 - 4 mg IV Q4H PRN PRN PRN Reason: SEVERE PAIN (6-10/10) [facility]it[facility] ([facility]) [facility] Last Admin: 08/06/18 08:47 Dose: 1 tablet Nicotine (Nicoderm Cq (Pbkc)) 21 mg TRANSDERM. DAILY [facility] Last Admin: 08/05/18 08:53 Dose: 21 mg Nicotine Polacrilex (Rugby Nicotine (Bkc)) 2 mg PO Q2H PRN PRN PRN Reason: Nicotine Craving Ondansetron HCl (Zofran) 4 mg IV Q8H PRN PRN PRN Reason: NAUSEA Oxycodone HCl (Oxyir) 5 - 10 mg PO Q4H PRN PRN PRN Reason: SEVERE PAIN (6-10/10) Last Admin: 08/06/18 08:47 Dose: 5 mg Sodium Chloride () 5 - 15 ml IV UD PRN PRN Reason: SALINE FLUSH Last Admin: 08/05/18 15:11 Dose: 10 ml Medical Necessity - Tobacco Use Smoking Status: Current every day smoker Tobacco Use: Cigarettes Assessment/Plan All Active Problems Asthma exacerbation (Acute) Hypoxia (Acute) 48-year-old female past medical history of asthma, hypertension, anxiety, depression, nicotine dependence who comes in with complaints of cough, dyspnea and wheezes. Admitting chest x-ray shows no pneumonia. 1. Acute asthma exacerbation secondary to RSV, slowly improving, will continue on breathing treatments, IV steroids 2. Acute hypoxic respiratory insufficiency, patient is back on 3 L of oxygen, secondary to #1, will continue to wean off oxygen, encourage use of incentive spirometer 3. Hyponatremia, hypovolemic secondary to dehydration, resolved with IV fluids 4. Hypothyroidism, on Synthroid 5. Nicotine dependence, advised to quit, on replacement 6. Anxiety/depression, on prn ativan 7. DVT prophylaxis with Lovenox subcu 8. Disposition: Possible Dc in am if improved; may need to be discharged on oxygen, will re-evaluate in am. Code Visit Inpatient E&M: [id number] Subs Hosp L2
[2018-08-06] MEDS: guaiFENesin 1,200 MG Tablet 1200 MG PO ×2 (10:55→21:34)
[2018-08-06] MEDS: Enoxaparin 40 MG/0.4 ML Syringe SC (10:56)
[2018-08-06] MEDS: 0.9% NaCl Peripheral Flush Adult/Peds IV ×3 (13:59→21:35)
[2018-08-07] VITALS (12 sets, daily range): BP systolic 113–139; BP diastolic 61–83; PULSE 92–124; RESP 16–20; TEMP 36.5–36.9; O2SAT 92–96
[2018-08-07] MEDS: Levothyroxine 75 MCG Tablet PO (06:16)
[2018-08-07] MEDS: Ketorolac 30 MG/ML Syringe IV (06:16)
[2018-08-07] MEDS: 0.9% NaCl Peripheral Flush Adult/Peds IV ×3 (06:21→21:20)
[2018-08-07] MEDS: Ipratropium/Albuterol Sulfate 3 ML AMPUL.NEB INHALATION ×5 (07:17→23:07)
--- NOTE | 2018-08-07 08:40 | PCM.PN.HOSP ---
Patient Problems: Active and Suspected Problems Asthma exacerbation (Acute) Hypoxia (Acute) Subjective: Patient was seen and examined. Remains SOB with minimal movements, still on 2-3L of oxygen. Complains of wheezes++ Denies fever or chills. ROS is negative Objective: Physical exam: General: Alert, Oriented x3, Cooperative, No apparent distress HEENT: Atraumatic, PERRLA, EOMI, Normocephalic Oral: Moist Mucosa Neck: Supple, No JVD, Negative Carotid Bruits Lungs: Diminished, Wheezes - ++ Cardiovascular: Regular rate, Regular Rhythm, Normal S1, Normal S2, No murmurs Abdomen: Bowel Sounds Present, Soft, Non Tender, Non-Distended, No Hepato-splenomegaly Extremities: No edema Skin: No rashes, No breakdown Musculoskeletal: No Tenderness to Palpation of Joints or Extremities Lymphatic: No Cervical, Supraclavicular, or Inguinal Adenopathy Neurological: Cranial nerves II-XII grossly intact, Neuro grossly intact Psych/Mental Status: Normal Affect, Appropriate Vitals/I&O's: Vital Signs Temp Pulse Resp BP Pulse Ox 97.8 F 96 18 127/80 H 96 08/07/18 08:15 08/07/18 08:15 08/07/18 08:15 08/07/18 08:15 08/07/18 08:15 Oxygen Flow Rate (L/min) 2 Oxygen Delivery Method Nasal Cannula Weight: 48.6 kg Body Mass Index (BMI) 21.2 Intake and Output for Last 24 Hours 08/05/18 08/06/18 08/07/18 23:59 23:59 23:59 Intake Total 3428 / 3428 400 / 400 900 / 900 Balance 3428 / 3428 400 / 400 900 / 900 Microbiology Past 72 Hours 08/05/18 06:50 Sputum, Expectorated/Coughed Gram Stain - Final 08/05/18 06:50 Sputum, Expectorated/Coughed Respiratory Culture - Final Presumptive C albicans 08/04/18 23:52 Mucosa - Nasopharyngeal Respiratory Panel (PCR) - Final RSV B 08/04/18 21:30 Mucosa - Nasopharyngeal Influenza Types A,B Direct FA (CODI) - Final Current Medications Acetaminophen (Tylenol) 650 mg PO Q6H PRN PRN PRN Reason: Mild Pain (scale 0-3)/T>100.7 Last Admin: 08/05/18 16:50 Dose: 650 mg Al Hydroxide/Mg Hydroxide (Mylanta Ii) 30 ml PO Q6H PRN PRN PRN Reason: Gastric burning Albuterol Sulfate (Ventolin Aerosols) 2.5 mg INHALATION Q2H PRN PRN PRN Reason: SHORTNESS OF BREATH Albuterol/Ipratropium (Duoneb) 3 ml INHALATION Q4H.RT [facility] Last Admin: 08/07/18 07:17 Dose: 3 ml Duloxetine HCl (Cymbalta) 20 mg PO DAILY [facility] Enoxaparin Sodium (Lovenox) 40 mg SC DAILY@1000 [facility] Last Admin: 08/06/18 10:56 Dose: 40 mg Famotidine (Pepcid) 20 mg PO BID [facility] Last Admin: 08/06/18 21:34 Dose: 20 mg Guaifenesin (Mucinex) 1,200 mg PO BID [facility] Last Admin: 08/06/18 21:34 Dose: 1,200 mg Guaifenesin (Robitussin Dm) 10 ml PO Q6H PRN PRN PRN Reason: COUGH Last Admin: 08/06/18 08:47 Dose: 10 ml Hydralazine HCl (Apresoline Iv) 10 mg IV Q4H PRN PRN PRN Reason: SBP > 160 Levothyroxine Sodium (Synthroid) 75 mcg PO DAILY@0600 [facility] Last Admin: 08/07/18 06:16 Dose: 75 mcg Lorazepam (Ativan) 0.5 mg PO DAILY PRN PRN PRN Reason: ANXIETY Last Admin: 08/05/18 16:50 Dose: 0.5 mg Magnesium Hydroxide (Milk Of Magnesia) 30 ml PO DAILY PRN PRN PRN Reason: Constipation Methylprednisolone (Solu-Medrol) 40 mg IV Q8 [facility] Last Admin: 08/07/18 06:16 Dose: 40 mg Morphine Sulfate () 2 - 4 mg IV Q4H PRN PRN PRN Reason: SEVERE PAIN (6-10/10) [facility]it[facility] ([facility]) [facility] Last Admin: 08/06/18 08:47 Dose: 1 tablet Nicotine (Nicoderm Cq (Pbkc)) 21 mg TRANSDERM. DAILY [facility] Last Admin: 08/06/18 10:54 Dose: 21 mg Nicotine Polacrilex (Rugby Nicotine (Bkc)) 2 mg PO Q2H PRN PRN PRN Reason: Nicotine Craving Ondansetron HCl (Zofran) 4 mg IV Q8H PRN PRN PRN Reason: NAUSEA Oxycodone HCl (Oxyir) 5 - 10 mg PO Q4H PRN PRN PRN Reason: SEVERE PAIN (6-10/10) Last Admin: 08/06/18 08:47 Dose: 5 mg Sodium Chloride () 5 - 15 ml IV UD PRN PRN Reason: SALINE FLUSH Last Admin: 08/07/18 06:23 Dose: 10 ml Medical Necessity - Tobacco Use Smoking Status: Current every day smoker Tobacco Use: Cigarettes Assessment/Plan All Active Problems Asthma exacerbation (Acute) Hypoxia (Acute) 48-year-old female past medical history of asthma, hypertension, anxiety, depression, nicotine dependence who comes in with complaints of cough, dyspnea and wheezes. Admitting chest x-ray shows no pneumonia. 1. Acute asthma exacerbation secondary to RSV, slowly improving, remains wheezy, will continue on breathing treatments, IV steroids 2. Acute hypoxic respiratory insufficiency, minimally improved, on 2-3 L of oxygen, secondary to #1, will continue to wean off oxygen, encourage use of incentive spirometer 3. Hyponatremia, hypovolemic secondary to dehydration, resolved with IV fluids 4. Hypothyroidism, on Synthroid 5. Nicotine dependence, advised to quit, on replacement 6. Anxiety/depression, on prn ativan 7. DVT prophylaxis with Lovenox subcu 8. Disposition: Keep one more day; DC tomorrow Code Visit Inpatient E&M: [id number] Subs Hosp L2
[2018-08-07] MEDS: guaiFENesin 1,200 MG Tablet 1200 MG PO ×2 (08:43→21:17)
--- NOTE | 2018-08-07 08:43 | PN_ITS ---
Patient Problems: Active and Suspected Problems Asthma exacerbation (Acute) Hypoxia (Acute) Subjective: Patient was seen and examined. Remains SOB with minimal movements, still on 2-3L of oxygen. Complains of wheezes++ Denies fever or chills. ROS is negative Objective: Physical exam: General: Alert, Oriented x3, Cooperative, No apparent distress HEENT: Atraumatic, PERRLA, EOMI, Normocephalic Oral: Moist Mucosa Neck: Supple, No JVD, Negative Carotid Bruits Lungs: Diminished, Wheezes - ++ Cardiovascular: Regular rate, Regular Rhythm, Normal S1, Normal S2, No murmurs Abdomen: Bowel Sounds Present, Soft, Non Tender, Non-Distended, No Hepato- splenomegaly Extremities: No edema Skin: No rashes, No breakdown Musculoskeletal: No Tenderness to Palpation of Joints or Extremities Lymphatic: No Cervical, Supraclavicular, or Inguinal Adenopathy Neurological: Cranial nerves II-XII grossly intact, Neuro grossly intact Psych/Mental Status: Normal Affect, Appropriate Vitals/I&O's: Vital Signs Temp Pulse Resp BP Pulse Ox 97.8 F 96 18 127/80 H 96 08/07/18 08:15 08/07/18 08:15 08/07/18 08:15 08/07/18 08:15 08/07/18 08:15 Oxygen Flow Rate (L/min) 2 Oxygen Delivery Method Nasal Cannula Weight: 48.6 kg Body Mass Index (BMI) 21.2 Intake and Output for Last 24 Hours 08/05/18 08/06/18 08/07/18 23:59 23:59 23:59 Intake Total 3428 / 3428 400 / 400 900 / 900 Balance 3428 / 3428 400 / 400 900 / 900 Microbiology Past 72 Hours 08/05/18 06:50 Sputum, Expectorated/Coughed Gram Stain - Final 08/05/18 06:50 Sputum, Expectorated/Coughed Respiratory Culture - Final Presumptive C albicans 08/04/18 23:52 Mucosa - Nasopharyngeal Respiratory Panel (PCR) - Final RSV B 08/04/18 21:30 Mucosa - Nasopharyngeal Influenza Types A,B Direct FA (CODI) - Final Current Medications Acetaminophen (Tylenol) 650 mg PO Q6H PRN PRN PRN Reason: Mild Pain (scale 0-3)/T>100.7 Last Admin: 08/05/18 16:50 Dose: 650 mg Al Hydroxide/Mg Hydroxide (Mylanta Ii) 30 ml PO Q6H PRN PRN PRN Reason: Gastric burning Albuterol Sulfate (Ventolin Aerosols) 2.5 mg INHALATION Q2H PRN PRN PRN Reason: SHORTNESS OF BREATH Albuterol/Ipratropium (Duoneb) 3 ml INHALATION Q4H.RT [facility] Last Admin: 08/07/18 07:17 Dose: 3 ml Duloxetine HCl (Cymbalta) 20 mg PO DAILY [facility] Enoxaparin Sodium (Lovenox) 40 mg SC DAILY@1000 [facility] Last Admin: 08/06/18 10:56 Dose: 40 mg Famotidine (Pepcid) 20 mg PO BID [facility] Last Admin: 08/06/18 21:34 Dose: 20 mg Guaifenesin (Mucinex) 1,200 mg PO BID [facility] Last Admin: 08/06/18 21:34 Dose: 1,200 mg Guaifenesin (Robitussin Dm) 10 ml PO Q6H PRN PRN PRN Reason: COUGH Last Admin: 08/06/18 08:47 Dose: 10 ml Hydralazine HCl (Apresoline Iv) 10 mg IV Q4H PRN PRN PRN Reason: SBP > 160 Levothyroxine Sodium (Synthroid) 75 mcg PO DAILY@0600 [facility] Last Admin: 08/07/18 06:16 Dose: 75 mcg Lorazepam (Ativan) 0.5 mg PO DAILY PRN PRN PRN Reason: ANXIETY Last Admin: 08/05/18 16:50 Dose: 0.5 mg Magnesium Hydroxide (Milk Of Magnesia) 30 ml PO DAILY PRN PRN PRN Reason: Constipation Methylprednisolone (Solu-Medrol) 40 mg IV Q8 [facility] Last Admin: 08/07/18 06:16 Dose: 40 mg Morphine Sulfate () 2 - 4 mg IV Q4H PRN PRN PRN Reason: SEVERE PAIN (6-10/10) [facility] Last Admin: 08/06/18 08:47 Dose: 1 tablet Nicotine (Nicoderm Cq (Pbkc)) 21 mg TRANSDERM. DAILY [facility] Last Admin: 08/06/18 10:54 Dose: 21 mg Nicotine Polacrilex (Rugby Nicotine (Bkc)) 2 mg PO Q2H PRN PRN PRN Reason: Nicotine Craving Ondansetron HCl (Zofran) 4 mg IV Q8H PRN PRN PRN Reason: NAUSEA Oxycodone HCl (Oxyir) 5 - 10 mg PO Q4H PRN PRN PRN Reason: SEVERE PAIN (6-10/10) Last Admin: 08/06/18 08:47 Dose: 5 mg Sodium Chloride () 5 - 15 ml IV UD PRN PRN Reason: SALINE FLUSH Last Admin: 08/07/18 06:23 Dose: 10 ml Medical Necessity - Tobacco Use Smoking Status: Current every day smoker Tobacco Use: Cigarettes Assessment/Plan All Active Problems Asthma exacerbation (Acute) Hypoxia (Acute) 48-year-old female past medical history of asthma, hypertension, anxiety, depression, nicotine dependence who comes in with complaints of cough, dyspnea and wheezes. Admitting chest x-ray shows no pneumonia. 1. Acute asthma exacerbation secondary to RSV, slowly improving, remains wheezy, will continue on breathing treatments, IV steroids 2. Acute hypoxic respiratory insufficiency, minimally improved, on 2-3 L of oxygen, secondary to #1, will continue to wean off oxygen, encourage use of incentive spirometer 3. Hyponatremia, hypovolemic secondary to dehydration, resolved with IV fluids 4. Hypothyroidism, on Synthroid 5. Nicotine dependence, advised to quit, on replacement 6. Anxiety/depression, on prn ativan 7. DVT prophylaxis with Lovenox subcu 8. Disposition: Keep one more day; DC tomorrow Code Visit Inpatient E&M: [id number] Subs Hosp L2
[2018-08-07] MEDS: DULoxetine Hcl 20 MG Capsule PO (08:44)
[2018-08-07] MEDS: Multivitamins,Therapeutic Tablet 1 TABLET PO (08:44)
[2018-08-07] MEDS: Famotidine 20 MG Tablet PO ×2 (08:44→21:16)
[2018-08-07] MEDS: Acetaminophen 325 MG Tablet 650 MG PO (14:25)
[2018-08-08] VITALS (9 sets, daily range): BP systolic 115–140; BP diastolic 73–79; PULSE 101–109; RESP 16–20; TEMP 36.6–36.9; O2SAT 87–98
[2018-08-08] MEDS: Levothyroxine 75 MCG Tablet PO (05:47)
[2018-08-08] MEDS: 0.9% NaCl Peripheral Flush Adult/Peds IV (05:50)
[2018-08-08] MEDS: Ipratropium/Albuterol Sulfate 3 ML AMPUL.NEB INHALATION ×3 (06:47→15:15)
--- NOTE | 2018-08-08 09:08 | PCM.DC ---
- Discharge Diagnoses Current Active Problems: Current Active and Chronic Problems Asthma exacerbation (Acute) Hypoxia (Acute) Hypothyroidism (Chronic) Anxiety and depression (Chronic) Tobacco use (Chronic) Reason(s) for Visit for Discharge Instructions: Shortness of breath You will use the following diet at home:: Regular Your food should be the consistency of: Regular Your liquids should be the consistency of: Regular/Thin Discharge Activity: Return to Normal Activity Additional Instructions: Continue to use your oxygen all the time. You have been advised to quit smoking. Do not go near open flames. You have been prescribed nicotine replacement. Complete your prednisone taper. You will be referred to see the nurse healthcare manager within 1-2 weeks to re-evaluate your oxygen needs. Allergies/Adverse Reactions: Allergies bupropion [From Wellbutrin] Allergy (Verified 08/05/18 02:55) Other hydrocodone bitartrate [From Vicodin] Allergy (Verified 06/05/14 12:23) Angioedema shellfish derived Allergy (Verified 02/08/14 18:16) Anaphylaxis Medications to take at Discharge Lorazepam [Ativan] 0.5 mg PO DAILY PRN PRN 06/02/14 Multivitamins,Therapeutic [Multivitamin] 1 tablet PO DAILY 06/02/14 Potassium (Otc) [Potassium OTC] 99 mg PO DAILY 06/02/14 Levothyroxine [Synthroid] 75 mcg PO DAILY 08/04/18 Duloxetine HCl 20 mg PO DAILY 08/06/18 Acetaminophen [Tylenol Tablet] 650 mg PO Q6H PRN PRN tablet 08/08/18 Guaifenesin [Mucinex] 1,200 mg PO BID #20 tablet 08/08/18 Nicotine Polacrilex [Nicotine Gum] 2 mg PO Q2H PRN PRN #30 gum 08/08/18 Nicotine [Nicoderm Cq] 21 mg TRANSDERM. DAILY #30 patch 08/08/18 Prednisone See Taper PO DAILY #30 tablet 08/08/18 The following prescriptions were given: Nicotine Polacrilex [Nicotine Gum] 2 mg PO Q2H PRN PRN #30 gum PRN Reason: Nicotine Craving Nicotine [Nicoderm Cq] 21 mg TRANSDERM. DAILY #30 patch Prednisone See Taper PO DAILY #30 tablet Guaifenesin [Mucinex] 1,200 mg PO BID #20 tablet Primary Care Physician: Hali Baca MD [Primary Care Provider] - Please follow up with your Primary Care Physician in: within 1-2 weeks] Test Results: Test results from this visit will be discussed in further detail at your follow-up appointment, if applicable. Please Follow Up With: Sohail Marquis MD When: within 1-2 weeks Proposed Discharge Date: 08/08/18
--- NOTE | 2018-08-08 09:13 | DCINST_ITS ---
- Discharge Diagnoses Current Active Problems: Current Active and Chronic Problems Asthma exacerbation (Acute) Hypoxia (Acute) Hypothyroidism (Chronic) Anxiety and depression (Chronic) Tobacco use (Chronic) Reason(s) for Visit for Discharge Instructions: Shortness of breath You will use the following diet at home:: Regular Your food should be the consistency of: Regular Your liquids should be the consistency of: Regular/Thin Discharge Activity: Return to Normal Activity Additional Instructions: Continue to use your oxygen all the time. You have been advised to quit smoking. Do not go near open flames. You have been prescribed nicotine replacement. Complete your prednisone taper. You will be referred to see the supervisor putty and caluking within 1-2 weeks to re-evaluate your oxygen needs. Allergies/Adverse Reactions: Allergies bupropion [From Wellbutrin] Allergy (Verified 08/05/18 02:55) Other hydrocodone bitartrate [From Vicodin] Allergy (Verified 06/05/14 12:23) Angioedema shellfish derived Allergy (Verified 02/08/14 18:16) Anaphylaxis Medications to take at Discharge Lorazepam [Ativan] 0.5 mg PO DAILY PRN PRN 06/02/14 Multivitamins,Therapeutic [Multivitamin] 1 tablet PO DAILY 06/02/14 Potassium (Otc) [Potassium OTC] 99 mg PO DAILY 06/02/14 Levothyroxine [Synthroid] 75 mcg PO DAILY 08/04/18 Duloxetine HCl 20 mg PO DAILY 08/06/18 Acetaminophen [Tylenol Tablet] 650 mg PO Q6H PRN PRN tablet 08/08/18 Guaifenesin [Mucinex] 1,200 mg PO BID #20 tablet 08/08/18 Nicotine Polacrilex [Nicotine Gum] 2 mg PO Q2H PRN PRN #30 gum 08/08/18 Nicotine [Nicoderm Cq] 21 mg TRANSDERM. DAILY #30 patch 08/08/18 Prednisone See Taper PO DAILY #30 tablet 08/08/18 The following prescriptions were given: Nicotine Polacrilex [Nicotine Gum] 2 mg PO Q2H PRN PRN #30 gum PRN Reason: Nicotine Craving Nicotine [Nicoderm Cq] 21 mg TRANSDERM. DAILY #30 patch Prednisone See Taper PO DAILY #30 tablet Guaifenesin [Mucinex] 1,200 mg PO BID #20 tablet Primary Care Physician: Hali Baca MD [Primary Care Provider] - Please follow up with your Primary Care Physician in: within 1-2 weeks] Test Results: Test results from this visit will be discussed in further detail at your follow- up appointment, if applicable. Please Follow Up With: Sohail Marquis MD When: within 1-2 weeks Proposed Discharge Date: 08/08/18
--- NOTE | 2018-08-08 09:14 | DS.PCM_ITS ---
Discharge Date and Diagnosis - Problem List Patient Problems: Active and Suspected Problems Asthma exacerbation (Acute) Hypoxia (Acute) Date of Admission: 08/04/18 Date of Discharge: 08/08/18 - Primary Discharge Diagnosis Active and Suspected Problems Asthma exacerbation (Acute) RSV bronchitis Acute respiratory insufficiency/Hypoxia (Acute) Hyponatremia, hypovolemic Nicotine dependence - Secondary Discharge Diagnosis Chronic Problems Hypothyroidism (Chronic) Anxiety and depression (Chronic) Tobacco use (Chronic) Hospital Course and Treatment Imaging Results: Clinical Impression(s) from Imaging Studies Chest X-Ray 08/04/18 21:35 IMPRESSION: Normal x-ray examination of the chest. Electronically Signed: Paul Leo MD at 22:00 EST , Service support , None Operations: None Procedures: None Summary of Care Provided: 48-year-old female with past medical history of asthma, hypertension, anxiety, depression, nicotine dependence who comes in with complaints of cough, dyspnea and wheezes. Admitting chest x-ray shows no pneumonia. She was found to have RSV bronchitis. She was managed on breathing treatments, IV steroids and oxygen. She slowly improved. She was discharged on 2-3 L of oxygen. She was encouraged to use her incentive spirometer. She was discharged on prednisone taper. She was asked to follow-up with pulmonology. Patient Problems: Active and Suspected Problems Asthma exacerbation (Acute) Hypoxia (Acute) Subjective: Patient was seen and examined. Feels slightly better. Still coughing, no fever or chills. She also complained of pain in her mouth and roof of mouth. Objective: Physical exam: General: Alert, Oriented x3, Cooperative, No apparent distress HEENT: Atraumatic, PERRLA, EOMI, Normocephalic Oral: Moist Mucosa Neck: Supple, No JVD, Negative Carotid Bruits Lungs: Diminished, Wheezes - ++ Cardiovascular: Regular rate, Regular Rhythm, Normal S1, Normal S2, No murmurs Abdomen: Bowel Sounds Present, Soft, Non Tender, Non-Distended, No Hepato- splenomegaly Extremities: No edema Skin: No rashes, No breakdown Musculoskeletal: No Tenderness to Palpation of Joints or Extremities Lymphatic: No Cervical, Supraclavicular, or Inguinal Adenopathy Neurological: Cranial nerves II-XII grossly intact, Neuro grossly intact Psych/Mental Status: Normal Affect, Appropriate - Physical Exam Vital Signs Temp Pulse Resp BP Pulse Ox 97.9 F 102 H 20 H 129/74 H 92 08/08/18 02:22 08/08/18 06:47 08/08/18 06:47 08/08/18 02:22 08/08/18 06:47 Oxygen Flow Rate (L/min) 3 Oxygen Delivery Method Nasal Cannula Weight: 48.6 kg Body Mass Index (BMI) 21.2 Intake and Output for Last 24 Hours 08/06/18 08/07/18 08/08/18 23:59 23:59 23:59 Intake Total 400 / 400 900 / 900 900 / 900 Balance 400 / 400 900 / 900 900 / 900 Microbiology Past 72 Hours 08/05/18 06:50 Gram Stain - Final Sputum, Expectorated/Coughed Respiratory Culture - Final Presumptive C albicans 08/04/18 23:52 Respiratory Panel (PCR) - Final Mucosa - Nasopharyngeal RSV B Discharge Diet: Low fat/ Low Cholesterol, 2000 mg Sodium Diet Discharge Activity: Return to Normal Activity Home Medications: Medications to take at Discharge Lorazepam [Ativan] 0.5 mg PO DAILY PRN PRN 06/02/14 Multivitamins,Therapeutic [Multivitamin] 1 tablet PO DAILY 06/02/14 Potassium (Otc) [Potassium OTC] 99 mg PO DAILY 06/02/14 Levothyroxine [Synthroid] 75 mcg PO DAILY 08/04/18 Duloxetine HCl 20 mg PO DAILY 08/06/18 Acetaminophen [Tylenol Tablet] 650 mg PO Q6H PRN PRN tablet 08/08/18 Albuterol IH (ProAir) [Proair Hfa] 1 - 2 puff INHALATION Q4H PRN PRN #1 inhaler 08/08/18 Guaifenesin [Mucinex] 1,200 mg PO BID #20 tablet 08/08/18 Nicotine Polacrilex [Nicotine Gum] 2 mg PO Q2H PRN PRN #30 gum 08/08/18 Nicotine [Nicoderm Cq] 21 mg TRANSDERM. DAILY #30 patch 08/08/18 Nystatin 500,000U/5ML [Mycostatin] 5 ml PO 4X/DAY 7 Days #1 bottle 08/08/18 Prednisone See Taper PO DAILY #30 tablet 08/08/18 Following Prescrptions Were Given to Patient: Nicotine Polacrilex [Nicotine Gum] 2 mg PO Q2H PRN PRN #30 gum PRN Reason: Nicotine Craving Albuterol IH (ProAir) [Proair Hfa] 1 - 2 puff INHALATION Q4H PRN PRN #1 inhaler PRN Reason: Sob &/Or Wheezing Nicotine [Nicoderm Cq] 21 mg TRANSDERM. DAILY #30 patch Prednisone See Taper PO DAILY #30 tablet Guaifenesin [Mucinex] 1,200 mg PO BID #20 tablet Nystatin 500,000U/5ML [Mycostatin] 5 ml PO 4X/DAY 7 Days #1 bottle Primary Care Physician: Hali Baca MD [Primary Care Provider] - Please follow up with your Primary Care Physician in: within 1-2 weeks] Please Follow Up With: Sohail Marquis MD When: within 1-2 weeks Disposition: Home Minutes spent on discharge:: 40 Patient Condition:: Stable Medical Necessity - Tobacco Use Smoking Status: Current every day smoker Tobacco Use: Cigarettes Meaningful Use Info Meaningful Use Diagnoses (Choose all that apply): None applicable Code Visit Inpatient E&M: 13551 Disch Hosp
--- NOTE | 2018-08-08 09:19 | PCA ---
Doctor Hernandez asked this legal administrative secretary to make an appointment for this patient for doctor Benitez office for 1 week or 2 weeks. they only had Aug 22 available which is 2 weeks away. So scheduled this patient for that first available.
--- NOTE | 2018-08-08 09:36 | PCA ---
called doctor armando office to schedule appointment they didn't have anything available but will contact patient to schedule the appointment with her
[2018-08-08] MEDS: Famotidine 20 MG Tablet PO (11:03)
[2018-08-08] MEDS: Multivitamins,Therapeutic Tablet 1 TABLET PO (11:03)
[2018-08-08] MEDS: Acetaminophen 325 MG Tablet 650 MG PO (11:03)
[2018-08-08] MEDS: guaiFENesin Dm 10 ML UDC PO (11:03)
[2018-08-08] MEDS: Enoxaparin 40 MG/0.4 ML Syringe SC (11:03)
[2018-08-08] MEDS: DULoxetine Hcl 20 MG Capsule PO (11:03)
[2018-08-08] MEDS: guaiFENesin 1,200 MG Tablet 1200 MG PO (11:04)
--- NOTE | 2018-08-08 11:56 | CASEMGMT ---
RN CM NOTE: Ambulating pulse ox has been completed. Pt qualifies for home O2. Script for O2 and nebulizer obtained from Dr Hernandez. [employer] CHRISTIANSON to room to talk with pt. Intro self and [employer] role. Inquired about pt's preferred DME company and she states she has no preference. Script, demographics, insurance info, and home O2 qualification testing faxed to [facility]. Call placed to [facility] and they were made aware pt is ready for discharge. Con KELLYEN RN CM
--- NOTE | 2018-08-09 14:35 | CASEMGMT ---
[employer] [facility] Discharge Follow-Up Phone Call. LACE: 12 Strata: 4 Discharge Date: 08-08-18 Adm Dx: Asthma Exac, Hypoxia Attempted discharge follow-up phone call. No answer. Message left for pt to call Donya LORENZ, if she has any questions about discharge instructions, medications, or any other concerns. Phone number provided. Con HALL RN CM
--- OUTSIDE RECORDS SUMMARY | 2018-10-07 12:27 | XMS RPT_ITS ---
:1970 Author Organization OHIP Care Team Providers Name Role Phone VINAY BACA Attending Unavailable VINAY BACA Referring Unavailable VINAY BACA Referring Unavailable DEIRDRE ARCEO (OCULARIST) Attending Unavailable PREM BARRETO (PA) Referring Unavailable Vinay Baca Primary Care Unavailable White, Bobbi Admitting Unavailable White, Bobbi Referring Unavailable Paintsil, [place] Attending Unavailable White, Bobbi Admitting Unavailable White, Bobbi Attending Unavailable White, Bobbi Referring Unavailable Talampas, Vinay Primary Care Unavailable White, Bobbi Consulting Unavailable White, Bobbi Admitting Unavailable Paintsil, [place] Attending Unavailable White, Bobbi Referring Unavailable Talampas, Vinay Primary Care Unavailable [place], [place] Consulting Unavailable White, Bobbi Admitting Unavailable Paint[place], [place] Attending Unavailable White, Bobbi Referring Unavailable Talampas, Vinay Primary Care Unavailable Paint[place], [place] Consulting Unavailable White, Bobbi Admitting Unavailable Paint[place], [place] Attending Unavailable White, Bobbi Referring Unavailable Talampas, Vinay Primary Care Unavailable Paint[place], [place] Consulting Unavailable White, Bobbi Admitting Unavailable Paint[place], [place] Attending Unavailable White, Bobbi Referring Unavailable Talampas, Vinay Primary Care Unavailable Paintsil, [place] Consulting Unavailable PROBLEMS PROBLEMS DATE TYPE CONDITION / CODE ATTENDING STATUS SOURCE 02/05/2018 Active Unknown / GEOVANNY, DEIRDRE Active [facility] UNK(Unknown) (OCULARIST) [facility] [place] Rep[facility] 02/05/2018 Active Encounter for NA Active [facility] screening [facility] [place] mammogram for Repository malignant neoplasm of breast / Z12.31(ICD-10) PROCEDURES PROCEDURES No Procedure Records FoundRESULTS RESULTS DISCHARGE SUMMARY Observed: 08/08/2018 Status: F Source: DAGMAR 2:28 PM [facility] REPOSITORY [facility] Medical Records Department [address] [place] [id number] Discharge Summary 08/08/1814 MR#: [id number] Acct: [id number] Name: JADA MAHONEY Rep #: [id number] : 1970 48 From: Clari Hernandez MD PCP: Vinay Baca MD Status: ADM IN Location: [place] [address] Discharge Date and Diagnosis - Problem List Patient Problems: Active and Suspected Problems Asthma exacerbation (Acute) Hypoxia (Acute) Date of Admission: 08/04/18 Date of Discharge: 08/08/18 - Primary Discharge Diagnosis Active and Suspected Problems Asthma exacerbation (Acute) RSV bronchitis Acute respiratory insufficiency/Hypoxia (Acute) Hyponatremia, hypovolemic Nicotine dependence - Secondary Discharge Diagnosis Chronic Problems Hypothyroidism (Chronic) Anxiety and depression (Chronic) Tobacco use (Chronic) Hospital Course and Treatment Imaging Results: Clinical Impression(s) from Imaging Studies Chest X-Ray 08/04/18 21:35 IMPRESSION: Normal x-ray examination of the chest. Electronically Signed: Paul Leo MD at 22:00 EST , Service support , None Operations: None Procedures: None Summary of Care Provided: 48-year-old female with past medical history of asthma, hypertension, anxiety, depression, nicotine dependence who comes in with complaints of cough, dyspnea and wheezes. Admitting chest x-ray shows no pneumonia. She was found to have RSV bronchitis. She was managed on breathing treatments, IV steroids and oxygen. She slowly improved. She was discharged on 2-3 L of oxygen. She was encouraged to use her incentive spirometer. She was discharged on prednisone taper. She was asked to follow-up with pulmonology. Patient Problems: Active and Suspected Problems Asthma exacerbation (Acute) Hypoxia (Acute) Subjective: Patient was seen and examined. Feels slightly better. Still coughing, no fever or chills. She also complained of pain in her mouth and roof of mouth. Objective: Physical exam: General: Alert, Oriented x3, Cooperative, No apparent distress HEENT: Atraumatic, PERRLA, EOMI, Normocephalic Oral: Moist Mucosa Neck: Supple, No JVD, Negative Carotid Bruits Lungs: Diminished, Wheezes - ++ Cardiovascular: Regular rate, Regular Rhythm, Normal S1, Normal S2, No murmurs Abdomen: Bowel Sounds Present, Soft, Non Tender, Non-Distended, No Hepato-splenomegaly Extremities: No edema Skin: No rashes, No breakdown Musculoskeletal: No Tenderness to Palpation of Joints or Extremities Lymphatic: No Cervical, Supraclavicular, or Inguinal Adenopathy Neurological: Cranial nerves II-XII grossly intact, Neuro grossly intact Psych/Mental Status: Normal Affect, Appropriate - Physical Exam Vital Signs Temp Pulse Resp BP Pulse Ox 97.9 F 102 H 20 H 129/74 H 92 08/08/18 02:22 08/08/18 06:47 08/08/18 06:47 08/08/18 02:22 08/08/18 06:47 Oxygen Flow Rate (L/min) 3 Oxygen Delivery Method Nasal Cannula Weight: 48.6 kg Body Mass Index (BMI) 21.2 Intake and Output for Last 24 Hours Intake Total 400 / 400 900 / 900 900 / 900 Balance 400 / 400 900 / 900 900 / 900 Microbiology Past 72 Hours 08/05/18 06:50 Gram Stain - Final Discharge Diet: Low fat/ Low Cholesterol, 2000 mg Sodium Diet Discharge Activity: Return to Normal Activity Home Medications: Medications to take at Discharge Lorazepam [Ativan] 0.5 mg PO DAILY PRN PRN 06/02/14 Multivitamins,Therapeutic [Multivitamin] 1 tablet PO DAILY 06/02/14 Potassium (Otc) [Potassium OTC] 99 mg PO DAILY 06/02/14 Levothyroxine [Synthroid] 75 mcg PO DAILY 08/04/18 Duloxetine HCl 20 mg PO DAILY 08/06/18 Acetaminophen [Tylenol Tablet] 650 mg PO Q6H PRN PRN tablet 08/08/18 Albuterol IH (ProAir) [Proair Hfa] 1 - 2 puff INHALATION Q4H PRN PRN #1 inhaler 08/08/18 Guaifenesin [Mucinex] 1,200 mg PO BID #20 tablet 08/08/18 Nicotine Polacrilex [Nicotine Gum] 2 mg PO Q2H PRN PRN #30 gum 08/08/18 Nicotine [Nicoderm Cq] 21 mg TRANSDERM. DAILY #30 patch 08/08/18 Nystatin 500,000U/5ML [Mycostatin] 5 ml PO 4X/DAY 7 Days #1 bottle 08/08/18 Prednisone See Taper PO DAILY #30 tablet 08/08/18 Following Prescrptions Were Given to Patient: Nicotine Polacrilex [Nicotine Gum] 2 mg PO Q2H PRN PRN #30 gum PRN Reason: Nicotine Craving Albuterol IH (ProAir) [Proair Hfa] 1 - 2 puff INHALATION Q4H PRN PRN #1 inhaler PRN Reason: Sob AND /Or Wheezing Nicotine [Nicoderm Cq] 21 mg TRANSDERM. DAILY #30 patch Prednisone See Taper PO DAILY #30 tablet Guaifenesin [Mucinex] 1,200 mg PO BID #20 tablet Nystatin 500,000U/5ML [Mycostatin] 5 ml PO 4X/DAY 7 Days #1 bottle Primary Care Physician: Vinay Baca MD [Primary Care Provider] - Please follow up with your Primary Care Physician in: within 1-2 weeks] Please Follow Up With: Sohail Marquis MD When: within 1-2 weeks Disposition: Home Minutes spent on discharge:: 40 Patient Condition:: Stable Medical Necessity - Tobacco Use Smoking Status: Current every day smoker Tobacco Use: Cigarettes Meaningful Use Info Meaningful Use Diagnoses (Choose all that apply): None applicable Code Visit Inpatient KRISTINA: [id number] Disch Hosp 08/08/18 1428 <Electronically signed by Clari Hernandez MD> Date Clari Hernandez MD Cosigner Signature (if applicable): Date CC: Clari Hernandez MD; Vinay Baca MD Signed DISCHARGE INSTRUCTION Observed: 08/08/2018 Status: F Source: DAGMAR 9:14 [facility] REPOSITORY [facility] Medical Records Department [address] [place] [address] Instructions for Home/Discharge Instructions 08/08/18 0908 MR#: [id number] Acct: [id number] Name: JADA MAHONEY Rep #: [id number] : 1970 48 From: Clari Hernandez MD PCP: Vinay Baca MD Status: ADM IN - Discharge Diagnoses Current Active Problems: Current Active and Chronic Problems Asthma exacerbation (Acute) Hypoxia (Acute) Hypothyroidism (Chronic) Anxiety and depression (Chronic) Tobacco use (Chronic) Reason(s) for Visit for Discharge Instructions: Shortness of breath You will use the following diet at home:: Regular Your food should be the consistency of: Regular Your liquids should be the consistency of: Regular/Thin Discharge Activity: Return to Normal Activity Additional Instructions: Continue to use your oxygen all the time. You have been advised to quit smoking. Do not go near open flames. You have been prescribed nicotine replacement. Complete your prednisone taper. You will be referred to see the economic analysis director within 1-2 weeks to re-evaluate your oxygen needs. Allergies/Adverse Reactions: Allergies bupropion [From Wellbutrin] Allergy (Verified 08/05/18 02:55) Other hydrocodone bitartrate [From Vicodin] Allergy (Verified 06/05/14 12:23) Angioedema shellfish derived Allergy (Verified 02/08/14 18:16) Anaphylaxis Medications to take at Discharge Lorazepam [Ativan] 0.5 mg PO DAILY PRN PRN 06/02/14 Multivitamins,Therapeutic [Multivitamin] 1 tablet PO DAILY 06/02/14 Potassium (Otc) [Potassium OTC] 99 mg PO DAILY 06/02/14 Levothyroxine [Synthroid] 75 mcg PO DAILY 08/04/18 Duloxetine HCl 20 mg PO DAILY 08/06/18 Acetaminophen [Tylenol Tablet] 650 mg PO Q6H PRN PRN tablet 08/08/18 Guaifenesin [Mucinex] 1,200 mg PO BID #20 tablet 08/08/18 Nicotine Polacrilex [Nicotine Gum] 2 mg PO Q2H PRN PRN #30 gum 08/08/18 Nicotine [Nicoderm Cq] 21 mg TRANSDERM. DAILY #30 patch 08/08/18 Prednisone See Taper PO DAILY #30 tablet 08/08/18 The following prescriptions were given: Nicotine Polacrilex [Nicotine Gum] 2 mg PO Q2H PRN PRN #30 gum PRN Reason: Nicotine Craving Nicotine [Nicoderm Cq] 21 mg TRANSDERM. DAILY #30 patch Prednisone See Taper PO DAILY #30 tablet Guaifenesin [Mucinex] 1,200 mg PO BID #20 tablet Primary Care Physician: Vinay Baca MD [Primary Care Provider] - Please follow up with your Primary Care Physician in: within 1-2 weeks] Test Results: Test results from this visit will be discussed in further detail at your follow-up appointment, if applicable. Please Follow Up With: Sohail Marquis MD When: within 1-2 weeks Proposed Discharge Date: 08/08/18 08/08/18 0914 <Electronically signed by Clari Hernandez MD> Date Clari Hernandez MD CC: Vinay Baca MD Signed Observed: 08/05/2018 Status: F Source: JENIFER CULTURE, SPUTUM 6:50 AM [facility] REPOSITORY Has pt arrived? Y Gram Stain Acceptable Specimen? Yes (<25 Epithelial cells per/lpf) Gram Stain 1+ White Blood Cells 1+ Epithelial cells 4+ Gram positive cocci 2+ Gram positive rods 1+ Gram negative rods Resp. Culture Mixed normal respiratory sadia. No Haemophilus, Streptococcus pneumoniae, beta-hemolytic Streptococcus or Staphylococcus aureus isolated. ORGANISM 1: Presumptive C albicans Amount Growth Rare Performed By: #### M100.0800 #### [facility] [address] [place], [address] BASIC METABOLIC Collected: 08/05/2018 Status: F Source: JENIFER PROFILE (BMP) 5:40 AM [facility] REPOSITORY TYPE CODE TESTS RESULT OUT OF RANGE REFERENCE UNITS LAB L501.0100 74-106 mg/dL High GLU 193 Result Comment: Fasting Glucose result greater than or equal to 126 mg/dL suggests DIABETES MELLITUS per A.D.A. criteria. Please note revised GLUCOSE reference range effective 2017. LAB L501.1000 7-18 mg/dL Normal BUN 7 LAB L501.1100 0.55-1.02 mg/dL Normal CREAT,SERUM 0.87 Result Comment: The validity of the calculated GFR AND GFRAA in patients over 70 years has not been determined. Clinical correlation is essential. LAB L501.1110 >60 mL/min Normal EST GFR 74 Result Comment: Non- GFR Calc LAB L501.1115 >60 mL/min Normal EST GFR - AA 90 Result Comment: GFR Calc LAB L501.1255 ml/min Normal Estimated CRCL 61.99 LAB L501.1300 10-20 RATIO Low BUN/CRE 8.0 LAB L501.2200 8.5-10 mg/dL Low .1 CA 8.4 LAB L501.5300 136-14 mmol/L Normal 5 NA 140 LAB L501.5600 3.5-5. mmol/L Normal 1 K 4.0 LAB L501.5900 98-107 mmol/L Normal CL 105 LAB L501.6100 21.0-3 mmol/L Normal 2.0 CO2 24.0 LAB L501.6200 5-15 Normal GAP 11 Performed By: #### L500.2500 #### [facility] [address] [place], [address] CBC W/DIFF, AUTOMATED Collected: 08/05/2018 Status: F Source: JENIFER 5:40 AM [facility] REPOSITORY TYPE CODE TESTS RESULT OUT OF RANGE REFERENCE UNITS LAB L100.1000 4.4-11.0 K/mm3 Normal WBC 6.1 LAB L100.1200 4.2-5.4 M/mm3 Low RBC 4.10 LAB L100.1300 12.0-15.0 g/dl Low HGB 11.6 LAB L100.1400 37-47 % Normal HCT 37.3 LAB L100.1500 81-99 fL Normal MCV 91.0 LAB L100.1600 27.0-32.0 pg Normal MCH 28.3 LAB L100.1700 32-36 g/gl Low MCHC 31.1 LAB L100.1810 11.6-14.6 % High RDW CV 15.5 LAB L100.1820 35.1-43.9 fl High RDW SD 50.7 LAB L100.1900 150-450 K/mm3 Normal PLT 288 LAB L100.2000 6.2-12.0 fl Normal MPV 9.3 LAB L100.2100 47-70 % High NEUT% 92.4 LAB L100.2200 19-41 % Low LY% 5.1 LAB L100.2300 0-10 % Normal MONO% 2.0 LAB L100.2400 0-5 % Normal EO% 0.0 LAB L100.2500 0-1 % Normal BASO% 0.3 LAB L100.2550 0.0-0.9 % Normal IM GRAN % 0.200 Result Comment: IG% - Immature Granulocytes (promyelocytes, myelocytes and metamyelocytes) > 1% indicates that a LEFT SHIFT is Present. LAB L100.2620 2.0-7.7 X10 3/uL Normal Absolute Neut 5.6 LAB L100.2720 0.83-4.51 X10 3/ul Low Absolute Lymph 0.31 Performed By: #### L100.0100 #### [facility] [address] [place], [address] HISTORY AND PHYSICAL Observed: 08/05/2018 Status: F Source: JENIFER EXAM 12:37 AM [facility] REPOSITORY [facility] Medical Records Department [address] [place] [address] History and Physical 08/04/18 2331 MR#: [id number] Acct: [id number] Name: JADA MAHONEY Rep #: [id number] : 1970 48 From: Bobbi Worrell PCP: Vinay Baca MD Status: ADM IN Y Location: [place] [address] Problem List (1) Asthma exacerbation Status: Acute Qualifiers: Asthma severity: unspecified severity Asthma persistence: unspecified Qualified Code(s): J45.901 - Unspecified asthma with (acute) exacerbation (2) Hypoxia Status: Acute (3) Hypothyroidism Status: Chronic Qualifiers: Hypothyroidism type: unspecified Qualified Code(s): E03.9 - Hypothyroidism, unspecified (4) Anxiety and depression Status: Chronic (5) Tobacco use Status: Chronic History of Present Illness Date of Admission: 08/04/18 Chief Complaint: Cough, Dyspnea, Wheezing The patient is a 48 y/o F w/ PMHx: Asthma, Hypothyroidism, Anxiety and Depression, Prolonged Cigarette Tobacco usage who presents to the [facility] ED on 08/04/18 with history of onset 2 weeks prior URI symptoms including harsh dry cough, dyspnea, wheezing as well as nausea, emesis, diarrhea, myalgias and arthralgias but seems to improve however recurrent ongoing progressively worsening dyspnea, wheezing as well as congestion and dry harsh cough despite 2 rounds of antibiotic therapy per urgent care, amoxicillin and doxycycline as well as prednisone course x2. She denies having ever seen pulmonary medicine. She notes that she is attempting tobacco cessation and states she is currently wearing a 21 mg nicotine patch. In the emergency room workup included T 99.7, heart rate 130, BP 112/73, respiratory rate 16, initial oxygenation 88% on room air with improvement to 95% on 2 L nasal cannula, CBC with WBC 8.1, hemoglobin 11.6, platelet 277 with left shift, d-dimer 0.32, BMP with sodium 135, BUN/Cr 6/0.52, glucose 114, rapid influenza unremarkable, respiratory viral panel pending, chest x-ray with no acute cardiopulmonary findings. 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 Past Medical History Past Medical History (Chronic Problems): Chronic Problems Hypothyroidism (Chronic) Anxiety and depression (Chronic) Tobacco use (Chronic) Allergies hydrocodone bitartrate [From Vicodin] Allergy (Verified 06/05/14 12:23) Angioedema shellfish derived Allergy (Verified 02/08/14 18:16) Anaphylaxis Home Medications: Ambulatory Orders Medication Instructions Recorded Lorazepam [Ativan] 0.5 mg PO DAILY PRN PRN 06/02/14 Surgical History: - - x2, right knee arthroscopic surgery, cone procedure for cervical dysplasia. 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 Tobacco Use: Cigarettes Alcohol: Occasional Drugs: None - *Family History Maternal History Items: Diabetes, Heart Disease, Hypertension Paternal History Items: Diabetes, Heart Disease, Hypertension Review of Systems Constitutional: Reports: Anorexia, Fever, Malaise, Weakness, Fatigue. Denies: Chills, Weight Change HEENT: Reports: Head Aches, Post Nasal Drip, Sinus Congestion, Sinus Drainage, Sore Throat Cardiovascular: Denies: Chest Pain, Palpitations Respiratory: Reports: Cough, Shortness of Breath, Shortness of breath at rest, Shortness of breath upon exertion, Sputum production, Wheezing Gastrointestinal: Reports: Diarrhea, Nausea, Vomiting. Denies: Abdominal Pain Genitourinary: Denies: Dysuria Musculoskeletal: Reports: Joint Pain, Muscle pain. Denies: Joint Tenderness Skin: Denies: Rash, Wounds Neurological: Denies: Numbness, Tingling, Focal weakness Psychiatric: Reports: Anxiety, Depression. Denies: Homicidal Ideations, Suicidal Ideations Hematologic/ Lymphatic: Denies: Easy Bruising, Easy Bleeding VTE Information - Inpt Only VTE Present on Admission: No VTE Mechan Device Prophylaxis: SCD's VTE Pharm Prophylaxis ordered?: Yes Patient Problems: Active and Suspected Problems Asthma exacerbation (Acute) Hypoxia (Acute) Subjective: Seated upright in the ED, fatigued appearance, no acute distress. Objective: Physical Examination: General: awake, alert, oriented x 3 and cooperative, seated upright in the ED bed in no apparent distress, fatigued appearance. Skin: normal color, turgor, no icterus, cyanosis. HEENT: AT/NC, EOMI, PERRLA, dry MM, no carotid bruits or JVD noted. Lungs: Diminished BS BL, > bases, diffuse rhonchi, diffuse wheezing. Heart: Tachycardic with regular rhythm; no gallop, rub audible. Abdomen: soft, NTTP, ND, normal BS, no HSM. Extremities: no cyanosis, clubbing, or edema. Neurological: patient awake, alert, oriented x 3; cognitive function intact; pupils equally reactive to light and accomodation; cranial nerves II-XII grossly normal, moving all 4 extremities, no focal deficits, strength severely globally decreased secondary to acute presentation. Psychiatric: affect appears flat, fatigued, no acute evidence of depressive or anxiety feelings. - Physical Exam Vital Signs Temp Pulse Resp BP Pulse Ox 99.7 F H 126 H 16 130/76 H 92 08/04/18 22:34 08/04/18 22:53 08/04/18 22:53 08/04/18 22:53 08/04/18 22:53 Oxygen Flow Rate (L/min) 2 Oxygen Delivery Method Nasal Cannula Weight: 110 lb 14.28 oz Body Mass Index (BMI) 21.7 Microbiology Past 72 Hours 08/04/18 21:30 Influenza Types A,B Direct FA (CODI) - Final Mucosa - Nasopharyngeal Laboratory Tests Past 24 Hrs Assessment/Plan All Active Problems Asthma exacerbation (Acute) Hypoxia (Acute) The patient is a 48 y/o F w/ PMHx: Asthma, Hypothyroidism, Anxiety and Depression, Prolonged Cigarette Tobacco usage who presents to the [facility] ED on 08/04/18 with history of onset 2 weeks prior URI symptoms including harsh dry cough, dyspnea, wheezing as well as nausea, emesis, diarrhea, myalgias and arthralgias but seems to improve however recurrent ongoing progressively worsening dyspnea, wheezing as well as congestion and dry harsh cough despite 2 rounds of antibiotic therapy per urgent care, amoxicillin and doxycycline as well as prednisone course x2. (1) Hypoxia secondary to Acute on Chronic Asthma, Possible COPD exacerbation secondary to suspected Acute Viral Syndrome: CXR w/ chronic changes, CBC on admission w/ no marked WBC elevation with mild shift, no respiratory distress noted upon evaluation but noted hypoxia upon presentation, improved with oxygen supplementation. Will admit to MS telemetry given ongoing notable tachycardia although possible secondary to aerosols in addition, maintain on oxygen with wean as tolerated to room air, continue ATC duonebs, PRN albuterol, IV methylprednisolone with prednisone transition, HOB, IS parameters, defer abx as suspected viral, pending respiratory viral panel, obtain sputum cultures. Would benefit from pulmonary evaluation after discharge with PFTs once clinically appropriate. (2) Hyponatremia, mild, suspected hypovolemia: Admission sodium mildly decreased, 135, likely secondary to dehydration with poor intake, recent viral syndrome with GI losses although had improved, continue to hydrate, repeat BMP in a.m. (3) Hypothyroidism: Continue home synthroid regimen. (4) Tobacco Abuse: Encouraged cessation, inpatient consultation per RT, NR if desired. (5) Anxiety and depression: We will continue home Ativan regimen, encourage consideration SSRI outpatient especially given concurrent depression and anxiety this would be first-line. (6) VT prophylaxis: SCD, Lovenox. Code Visit Inpatient E AND M: [id number] Init Hosp L3 08/05/18 0037 <Electronically signed by Bobbi Worrell > Date Bobbi Worrell Cosigner Signature: Date (if applicable) CC: Bobbi Worrell; Vinay Baca MD Signed Observed: 2018 Status: F Source: JENIFER RESPIRATORY PANEL 11:52 PM [facility]LECULAR REPOSITORY Has pt arrived? Y RP PANEL RESULTS CALLED TO A MANAS 08/05/18 1410 Martina Conway. REPORT READ BACK BY STORMY. Normal Reference Range = Not Detected ADENOVIRUS Not Detected HUMAN METAPHNEUMO Not Detected INFLUENZA A Not Detected INFLUENZA A (SUBTYPE H1) Not Detected INFLUENZA A (SUBTYPE H3) Not Detected INFLUENZA B Not Detected PARAINFLUENZA 1 Not Detected PARAINFLUENZA 2 Not Detected PARAINFLUENZA 3 Not Detected PARAINFLUENZA 4 Not Detected RHINOVIRUS Not Detected RSV A Not Detected RSV B Positive for RSV B by NAAT technology NAAT METHOD Testing was performed using nucleic acid amplification ORGANISM 1: RSV B Performed By: #### M100.638 #### [facility] [address] [place], [address] EMERGENCY DEPARTMENT Observed: 2018 Status: F Source: DAGMAR SUMMARY 11:40 PM [facility] REPOSITORY [facility] Medical Records Department [address] [place] [address] Emergency Department Summary 08/04/18 2154 MR#: [id number] Acct: [id number] Name: JADA MAHONEY Rep #: [id number] : 1970 48 From: Kaitlynn Haas MD PCP: Vinay Baca MD Status: REG ER - ER Visit Summary Date of Service: 08/04/18 Chief Complaint: Cough History of Present Illness: The patient is a 48 F presenting with cough, shortness of breath. She states this has been ongoing for the past month. She initially was out of town and was seen by an out-of-town nurse practitioner. She was given amoxicillin and prednisone. She states she these medications. She went to urgent care 2 weeks ago was given doxycycline and prednisone. She also finished these medications. She continues to have wheezing and cough. She complains of subjective fever. She denies chest pain. Denies other complaints. Physical Examination: Vitals are stable. Temperature 100.7, heart rate 125. alert no acute distress. HEENT exam is unremarkable. Neck is supple. Lungs are expiratory wheezing bilaterally. Heart is regular rate and rhythm. Abdomen is soft nontender nondistended. Extremities are unremarkable. Skin is warm and dry. No focal neurologic deficit. Remainder of exam is unremarkable. Emergency Department Course and Treatment: Patient was given albuterol, Atrovent aerosol. While in the ED her pulse ox checked dropped to 84-86% on room air. Chest x-ray shows no acute process. Influenza negative. Hemoglobin 11.6. Chemistries unremarkable. D-dimer negative. She was given Solu-Medrol IV. Discussed with the hospitalist for admission. Disposition: Admission Impression: Asthma exacerbation, hypoxia, URI, failed outpatient treatment This note was generated with The Huntation software. It may contain incorrect words, spelling, and punctuation that were not noted in review of the chart prior to signing ED Disposition - Plan for ED Patient: Chief Complaint: Cold Sx Referrals: Vinay Baca MD [Primary Care Provider] - What to do if you have Problems For any increased pain, shortness of breath, bleeding, nausea or vomiting, chest pain, or any unexpected problems, contact your Primary Care Provider. Call [facility] ([phone]) or report to the closest Emergency Room. Call 911 if necessary. 08/04/18 2340 <Electronically signed by Kaitlynn Haas MD> Date Kaitlynn Haas MD Cosigner Signature (If Indicated): Date CC: Vinay Baca MD BASIC METABOLIC Collected: 2018 Status: F Source: JENIFER PROFILE ([facility]) 10:50 PM [facility] REPOSITORY TYPE CODE TESTS RESULT OUT OF RANGE REFERENCE UNITS LAB L501.0100 74-106 mg/dL High GLU 114 Result Comment: Fasting Glucose result from 100 to 125 mg/dL suggests IMPAIRED HOMEOSTASIS per A.D.A. criteria. Please note revised GLUCOSE reference range effective 2017. LAB L501.1000 7-18 mg/dL Low BUN 6 LAB L501.1100 0.55-1.02 mg/dL Low CREAT,SERUM 0.52 Result Comment: The validity of the calculated GFR AND GFRAA in patients over 70 years has not been determined. Clinical correlation is essential. LAB L501.1110 >60 mL/min Normal EST GFR 136 Result Comment: Non- GFR Calc LAB L501.1115 >60 mL/min Normal EST GFR - AA 164 Result Comment: GFR Calc LAB L501.1255 ml/min Normal Estimated CRCL 97.10 LAB L501.1300 10-20 RATIO Normal BUN/CRE 11.6 LAB L501.2200 8.5-10 mg/dL Low .1 CA 8.4 LAB L501.5300 136-14 mmol/L Low 5 NA 135 LAB L501.5600 3.5-5. mmol/L Normal 1 K 3.5 LAB L501.5900 98-107 mmol/L Normal CL 101 LAB L501.6100 21.0-3 mmol/L Normal 2.0 CO2 25.0 LAB L501.6200 5-15 Normal GAP 9 Performed By: #### L500.2500 #### [facility] [address] [place], [address] CBC W/DIFF, AUTOMATED Collected: 2018 Status: F Source: JENIFER 10:50 PM [facility] REPOSITORY TYPE CODE TESTS RESULT OUT OF RANGE REFERENCE UNITS LAB L100.1000 4.4-11.0 K/mm3 Normal WBC 8.1 LAB L100.1200 4.2-5.4 M/mm3 Normal RBC 4.21 LAB L100.1300 12.0-15.0 g/dl Low HGB 11.6 LAB L100.1400 37-47 % Normal HCT 38.0 LAB L100.1500 81-99 fL Normal MCV 90.3 LAB L100.1600 27.0-32.0 pg Normal MCH 27.6 LAB L100.1700 32-36 g/gl Low MCHC 30.5 LAB L100.1810 11.6-14.6 % High RDW CV 15.5 LAB L100.1820 35.1-43.9 fl High RDW SD 50.8 LAB L100.1900 150-450 K/mm3 Normal PLT 277 LAB L100.2000 6.2-12.0 fl Normal MPV 9.0 LAB L100.2100 47-70 % High NEUT% 83.5 LAB L100.2200 19-41 % Low LY% 11.0 LAB L100.2300 0-10 % Normal MONO% 4.7 LAB L100.2400 0-5 % Normal EO% 0.4 LAB L100.2500 0-1 % Normal BASO% 0.2 LAB L100.2550 0.0-0.9 % Normal IM GRAN % 0.200 Result Comment: IG% - Immature Granulocytes (promyelocytes, myelocytes and metamyelocytes) > 1% indicates that a LEFT SHIFT is Present. LAB L100.2620 2.0-7.7 X10 3/uL Normal Absolute Neut 6.7 LAB L100.2720 0.83-4.51 X10 3/ul Normal Absolute Lymph 0.89 Performed By: #### L100.0100 #### [facility] [address] [facility] [place], [address] D-DIMER QUANTITATIVE Collected: 2018 Status: F Source: DAGMAR (DVT/PE) 10:50 PM [facility] REPOSITORY TYPE CODE TESTS RESULT OUT OF RANGE REFERENCE UNITS LAB L300.8000 0.27-0.49 FEU/ug/m Normal D-DIMER 0.32 QUANT Result Comment: NORMAL D-Dimer level (<0.50) indicates no DVT or PE. Performed By: #### L300.8000 #### [facility] [address] [facility] [place], [address] Observed: 2018 Status: F Source: DAGMAR INFLUENZA A+B (RAPID 9:30 PM [facility]) REPOSITORY Has pt arrived? Y FLU A/B Rapid Negative test results should be confirmed with FLU PANEL MOLECULAR if indicated. Influenza Ag, Direct Presumptive NEGATIVE for Influenza A/B Antigen (See Note) Performed By: #### M101.0101 #### [facility] [address] [facility] [place], [address] CHEST PA AND LATERAL Observed: 2018 Status: F Source: DAGMAR 9:22 PM [facility] REPOSITORY [facility] Imaging Services [address] [place] [id number] Chest PA and Lateral MR#: [id number] Acct: [id number] Name: JADA MAHONEY Rep #: [id number] : 1970 F 48 From: Paul Leo MD PCP: Vinay Baca MD Status: REG ER Study: Chest PA and Lateral Date of Exam: 08/04/18 Exam# [id number] Ordering Dr: Kaitlynn Haas MD STUDY: X-RAY CHEST REASON FOR EXAM: Female, 48 years old. Cough and fever. TECHNIQUE: Frontal and lateral views of the chest. COMPARISON: None. FINDINGS: The lungs are clear and expanded. There is no demonstrated pleural abnormality. Normal size heart. Normal mediastinum and yudelka. Normal visualized pulmonary arteries. Normal visualized aortic arch and descending thoracic aorta. Normal visualized thoracic spine. Normal visualized ribs, clavicles, and shoulders. There is no demonstrated abnormality of the visualized soft tissue structures of the upper abdomen. RAD/Chest PA and Lateral IMPRESSION: Normal x-ray examination of the chest. Electronically Signed: Paul Leo MD at 22:00 EST , Service support , CC: Kaitlynn Haas MD; Vinay Baca MD Water Pump Operator: Signed OBSOLETE Observed: 07/25/2018 Status: COMPLETED Source: [place] 12:00 AM [facility] REPOSITORY Refill (INTMWS) JADA MAHONEY ([id number]) 1970 F Date Time Provider Department 07/25/18 VINAY BACA INTSalvadorWS During your visit today, we recorded the following information about you: Salvador Garay RN 07/25/2018 1:45 PM Signed Patient reports she was prescribed AB in on 07-23-18 for sinus, and now has a vaginal yeast infection. Is leaving for a cruise tomorrow morning and asking if pcp would send Rx for diflucan to [facility]. Pended. Vinay Baca MD 07/25/2018 4:57 PM Signed The following approved medication requests have been transmitted electronically. Signed Prescriptions Disp Refills fluconazole (DIFLUCAN) 150 mg tablet 2 tablet 0 Sig: Take 1 tablet by mouth one time only for 1 dose. May repeat after 3 days if infection not resolved CHARLIE: No Authorizing Provider: VINAY BACA MD Allergies As of Date: 07/25/2018 Noted Allergy Reaction CELEXA (CITALOPRAM) 05/21/2017 5 - Intolerance Comments: Increased anxiety and depression MOLD 09/25/2006 oranges, bananas, peas, mushrooms*09/03/2006 RAGWEED 09/03/2006 Comments: molds SHELLFISH 09/03/2006 WELLBUTRIN (BUPROPION) 12/28/2015 14 - Other: See Comments Comments: increased anxiety Tried twice (by itself) ZOLOFT (SERTRALINE) 05/21/2017 5 - Intolerance Comments: Increased anxiety and depression Date Reviewed: 07/23/2018 Reviewed by: Prem ([facility]) - Fully Assessed Reason for Visit: Refill Request [94] Order(s):[] fluconazole (DIFLUCAN) 150 mg tabletTake 1 tablet by mouth one time only for 1 dose. May repeat after 3 days if infection not resolvedDisp: 2 tabletRfl: 0 Prescriptions as of 07/25/2018 Sig: FLUCONAZOLE 150 MG TABLET Take 1 tablet by mouth one ti* DOXYCYCLINE MONOHYDRATE 100 M* Take 1 tablet by mouth twice * PREDNISONE 20 MG TABLET Take 2 tablets by mouth once * LORAZEPAM 0.5 MG TABLET Take 1-2 tablets by mouth onc* DULOXETINE 20 MG CAPSULE,KARY* take 1 capsule by mouth once * ALBUTEROL SULFATE HFA 90 MCG/* Inhale 2 Puffs as instructed * SYNTHROID 75 MCG TABLET Take 1 tablet by mouth once d* VALACYCLOVIR 1 GRAM TABLET Take 2 tablets by mouth every* TRIAMCINOLONE ACETONIDE 0.1 %* Apply 1 application to affect* POTASSIUM CHLORIDE ER 10 MEQ * Take 1-2 capsules by mouth on* KETOCONAZOLE 2 % SHAMPOO Apply lather to scalp and fac* LORATADINE 10 MG TABLET Take 1 tablet by mouth once d* * THERAPEUTIC MULTIVITAMIN TABL* Take one(1) tablet daily. Problem List As Of Date 07/25/2018 Noted Resolved Asthma [J45.909] INVALID FOR* ALLERGIC RHINITIS NOS [J30.9] INVALID FOR* JOINT PAIN-SHLDER [M25.519] INVALID FOR* Syrinx, persistent central canal [G95.89] INVALID FOR* Fibromyalgia [M79.7] INVALID FOR* Acquired hypothyroidism [E03.9] INVALID FOR* Hypokalemia [E87.6] INVALID FOR* Prescriptions ordered this encounter Disp Refills Start End FLUCONAZOLE 150 MG TABLET 2 ta* 0 07/25/2018 07/25/2018 Route: ORAL Sig: Take 1 tablet by mouth one time only for 1 dose. May repeat after 3 days if infection not resolved Medications Discontinued During This Encounter fluconazole (DIFLUCAN) 150 mg tablet 2 ta* 0 01/28/2016 07/25/2018 Route: ORAL Sig: Take 1 tablet by mouth one time only for 1 dose. May repeat after 3 days if infection not resolved Disc: Reason for discontinue is not on file. Encounter Status:Closed by AMMY MILLER LPN on 07/30/18 XR CHEST 2V FRONTAL/LAT Observed: 07/23/2018 Status: F Source: [place] 11:50 AM [facility] REPOSITORY * * *Final Report* * * DATE OF EXAM: Jul 23 2018 11:50AM WOX [id number] - XR CHEST 2V FRONTAL/LAT / PROCEDURE REASON: Wheeze * * * * Physician Interpretation * * * * EXAMINATION: CHEST RADIOGRAPH (2 VIEW FRONTAL and LATERAL) CLINICAL HISTORY: Wheeze MQ: XC2_5 Comparison: None RESULT: Lines, tubes, and devices: None. Lungs and pleura: No consolidation. No lung mass. No pleural effusion. Cardiomediastinal silhouette: Normal cardiomediastinal silhouette. Congenital appearing upper rib deformities. IMPRESSION: No acute radiographic abnormality. Water Pump Operator: PSCB Transcribe Date/Time: Jul 23 2018 11:59A Dictated by : MARCI BRANDON MD This examination was interpreted and the report reviewed and electronically signed by: MARCI BRANDON MD on Jul 23 2018 12:01PM EST [id number] Observed: 07/23/2018 Status: COMPLETED Source: [place] 11:43 AM [facility] REPOSITORY HNO ID: [id number] Author: Jairon Maynard (Rt) Prasanna Barker Service: (none) Author Type: Retail Stocker Type: Progress Notes Filed: 07/23/2018 11:47 AM Note Text: Radiology Service Progress Note PATIENT NAME: Jada Mahoney DATE OF SERVICE: July 23, 2018 TIME: 11:43 AM PATIENT IDENTITY VERIFICATION COMPLETED USING TWO (2) METHODS: Patient confirmed name verbally and Date of . PATIENT GENDER DATA: Female. status: : No status: NO. PATIENT RELEVANT IMPLANT DATA REVIEWED: Not Applicable RADIOLOGY DEPARTMENT: General X-ray: Exam(s) Completed: Chest X-Ray PERIPHERAL IV DATA: Not applicable SIGNED BY: RT Safia July 23, 2018 11:43 AM PROGRESS Observed: 07/23/2018 Status: COMPLETED Source: [place] 11:19 AM [facility] REPOSITORY HNO ID: [id number] Author: Prem Barreto Service: (none) Author Type: Nurse Practitioner Type: Progress Notes Filed: 07/23/2018 12:34 PM Note Text: Subjective HPI HPI Jada Mahoney is a 47 year old female who presents today for CC of cough. This started 2 weeks ago. Has tried otc medication and amoxicillin early on in course. Symptoms are worsened by smoking. Risk factors patient is an everyday smoker. .Patient presents with: cough and chest congestion: x 2 weeks PAST MEDICAL HISTORY Diagnosis Date - Anxiety - BCC (basal cell carcinoma), face ~2010 - Irritable bowel syndrome - MVP (mitral valve prolapse) - Other abnormal Papanicolaou smear of cervix and cervical HPV(795.09) 1994 - Ovarian cyst - Unspecified asthma(493.90) 2004 PAST SURGICAL HISTORY Procedure Laterality Date - DELIVERY ONLY , low cervical x 2 - PAST SURGICAL HISTORY OF 1994 cryo of cervix ALLERGIES Celexa [Citalopram]; Mold; Oranges, Bananas, Peas, Mushrooms [Other]; Ragweed; Shellfish; Wellbutrin [Bupropion]; Zoloft [Sertraline] MEDICATIONS LORazepam (ATIVAN) 0.5 mg tab Take 1-2 tablets by mouth once daily as needed for up to 30 days. DULoxetine (CYMBALTA) 20 mg capsule take 1 capsule by mouth once daily albuterol HFA (VENTOLIN HFA) 90 mcg/actuation inhaler Inhale 2 Puffs as instructed every 4 hours as needed for Wheezing/Shortness of Breath. SYNTHROID 75 mcg tablet Take 1 tablet by mouth once daily on empty stomach valACYclovir (VALTREX) 1 gram tab Take 2 tablets by mouth every 12 hours. for 2 doses for cold sore (total 4 pills). Repeat as needed for acute cold sore triamcinolone acetonide (KENALOG) 0.1 % cream Apply 1 application to affected area three times daily as needed. Apply sparingly to area for rash/itching. ketoconazole (NIZORAL) 2 % shampoo Apply lather to scalp and face as directed for 5 minutes then rinse daily as needed. Dispense 1 bottle, not 1 ml. loratadine (CLARITIN) 10 mg tablet Take 1 tablet by mouth once daily. as needed potassium chloride SR (MICRO-K) 10 mEq CR capsule Take 1-2 capsules by mouth once daily. therapeutic multivitamin ORAL Tab Take one(1) tablet daily. FAMILY HISTORY Problem Relation Age of Onset - Asthma Father - Asthma Brother Social History Substance Use Topics - Smoking status: Former Smoker Packs/day: 2.00 Years: 15.00 Types: Cigarettes - Smokeless tobacco: Never Used - Alcohol use Yes Comment: occasional Review of Systems Constitutional: Negative for chills, fever and weight loss. HENT: Positive for congestion, sinus pain and sore throat. Negative for ear pain and nosebleeds. Respiratory: Positive for cough. Negative for shortness of breath and wheezing. Musculoskeletal: Negative for neck pain. Objective Blood pressure 138/86, pulse 96, temperature 36.9 ?C (98.5 ?F), temperature source Tympanic, resp. rate 18, weight 48.4 kg (106 lb 9.6 oz), SpO2 97 %. Physical Exam Constitutional: She is oriented to person, place, and time and well-developed, well-nourished, and in no distress. Non-toxic appearance. She does not have a sickly appearance. No distress. HENT: Head: Normocephalic and atraumatic. Right Ear: Hearing, tympanic membrane, external ear and ear canal normal. Left Ear: Hearing, tympanic membrane, external ear and ear canal normal. Nose: Right sinus exhibits frontal sinus tenderness. Left sinus exhibits frontal sinus tenderness. Mouth/Throat: Uvula is midline, oropharynx is clear and moist and mucous membranes are normal. Eyes: Pupils are equal, round, and reactive to light. Conjunctivae and lids are normal. Right eye exhibits no discharge. Left eye exhibits no discharge. No scleral icterus. Neck: Trachea normal and normal range of motion. Neck supple. Cardiovascular: Normal rate, regular rhythm and normal heart sounds. Pulmonary/Chest: Effort normal. She has wheezes (fine, scattered bilaterally). Lymphadenopathy: She has no cervical adenopathy. Neurological: She is alert and oriented to person, place, and time. Skin: No rash noted. She is not diaphoretic. ASSESSMENT/PLAN: 1. Sinobronchitis - ICD9: 473.9, 490, ICD10: J32.9, J40 (primary diagnosis) - Will begin treatment with Doxycline - Supportive care with plenty of fluids, rest, and analgesia prn. - Follow up in 3-5 days if symptoms persist or worsen. - DOXYCYCLINE MONOHYDRATE 100 MG TABLET - PREDNISONE 20 MG TABLET 2. Wheeze - ICD9: 786.07, ICD10: R06.2 xr negative tx as above - XR CHEST 2V FRONTAL/LAT - Dictated by : MARCI BRANDON MD Impression IMPRESSION: No acute radiographic abnormality. Discussed smoking cessation and use of asthma inhalers Prescription instructions reviewed with patient as applicable. Patient advised if symptoms do not improve or if symptoms worsen sooner, to contact the office for further evaluation by their primary care physician. Potential red flag symptoms discussed with the patient. Reviewed appropriate action plan to take if red flag symptoms occur. Patient agreeable to treatment plan. Prem Barreto APRN.HARJEET ALCARAZ Observed: 07/23/2018 Status: COMPLETED Source: [place] 11:00 AM [facility] REPOSITORY Office Visit (WSTR) JADA MAHONEY ([id number]) 1970 F Date Time Provider Department 07/23/18 11:00 AM PREM BARRETO) WSTR During your visit today, we recorded the following information about you: Temperature Pulse Respiration Blood pressure 98.5 degrees 96/minute 18/minute 138/86 Weight 48.4 kg Prem Barreto APRN.HARJEET 07/23/2018 12:34 PM Signed Subjective HPI HPI Jada Mahoney is a 47 year old female who presents today for CC of cough. This started 2 weeks ago. Has tried otc medication and amoxicillin early on in course. Symptoms are worsened by smoking. Risk factors patient is an everyday smoker. .Patient presents with: cough and chest congestion: x 2 weeks PAST MEDICAL HISTORY Diagnosis Date - Anxiety - BCC (basal cell carcinoma), face ~2010 - Irritable bowel syndrome - MVP (mitral valve prolapse) - Other abnormal Papanicolaou smear of cervix and cervical HPV(795.09) 1994 - Ovarian cyst - Unspecified asthma(493.90) 2004 PAST SURGICAL HISTORY Procedure Laterality Date - DELIVERY ONLY , low cervical x 2 - PAST SURGICAL HISTORY OF 1994 cryo of cervix ALLERGIES Celexa [Citalopram]; Mold; Oranges, Bananas, Peas, Mushrooms [Other]; Ragweed; Shellfish; Wellbutrin [Bupropion]; Zoloft [Sertraline] MEDICATIONS LORazepam (ATIVAN) 0.5 mg tab Take 1-2 tablets by mouth once daily as needed for up to 30 days. DULoxetine (CYMBALTA) 20 mg capsule take 1 capsule by mouth once daily albuterol HFA (VENTOLIN HFA) 90 mcg/actuation inhaler Inhale 2 Puffs as instructed every 4 hours as needed for Wheezing/Shortness of Breath. SYNTHROID 75 mcg tablet Take 1 tablet by mouth once daily on empty stomach valACYclovir (VALTREX) 1 gram tab Take 2 tablets by mouth every 12 hours. for 2 doses for cold sore (total 4 pills). Repeat as needed for acute cold sore triamcinolone acetonide (KENALOG) 0.1 % cream Apply 1 application to affected area three times daily as needed. Apply sparingly to area for rash/itching. ketoconazole (NIZORAL) 2 % shampoo Apply lather to scalp and face as directed for 5 minutes then rinse daily as needed. Dispense 1 bottle, not 1 ml. loratadine (CLARITIN) 10 mg tablet Take 1 tablet by mouth once daily. as needed potassium chloride SR (MICRO-K) 10 mEq CR capsule Take 1-2 capsules by mouth once daily. therapeutic multivitamin ORAL Tab Take one(1) tablet daily. FAMILY HISTORY Problem Relation Age of Onset - Asthma Father - Asthma Brother Social History Substance Use Topics - Smoking status: Former Smoker Packs/day: 2.00 Years: 15.00 Types: Cigarettes - Smokeless tobacco: Never Used - Alcohol use Yes Comment: occasional Review of Systems Constitutional: Negative for chills, fever and weight loss. HENT: Positive for congestion, sinus pain and sore throat. Negative for ear pain and nosebleeds. Respiratory: Positive for cough. Negative for shortness of breath and wheezing. Musculoskeletal: Negative for neck pain. Objective Blood pressure 138/86, pulse 96, temperature 36.9 ?C (98.5 ?F), temperature source Tympanic, resp. rate 18, weight 48.4 kg (106 lb 9.6 oz), SpO2 97 %. Physical Exam Constitutional: She is oriented to person, place, and time and well-developed, well-nourished, and in no distress. Non-toxic appearance. She does not have a sickly appearance. No distress. HENT: Head: Normocephalic and atraumatic. Right Ear: Hearing, tympanic membrane, external ear and ear canal normal. Left Ear: Hearing, tympanic membrane, external ear and ear canal normal. Nose: Right sinus exhibits frontal sinus tenderness. Left sinus exhibits frontal sinus tenderness. Mouth/Throat: Uvula is midline, oropharynx is clear and moist and mucous membranes are normal. Eyes: Pupils are equal, round, and reactive to light. Conjunctivae and lids are normal. Right eye exhibits no discharge. Left eye exhibits no discharge. No scleral icterus. Neck: Trachea normal and normal range of motion. Neck supple. Cardiovascular: Normal rate, regular rhythm and normal heart sounds. Pulmonary/Chest: Effort normal. She has wheezes (fine, scattered bilaterally). Lymphadenopathy: She has no cervical adenopathy. Neurological: She is alert and oriented to person, place, and time. Skin: No rash noted. She is not diaphoretic. ASSESSMENT/PLAN: 1. Sinobronchitis - ICD9: 473.9, 490, ICD10: J32.9, J40 (primary diagnosis) - Will begin treatment with Doxycline - Supportive care with plenty of fluids, rest, and analgesia prn. - Follow up in 3-5 days if symptoms persist or worsen. - DOXYCYCLINE MONOHYDRATE 100 MG TABLET - PREDNISONE 20 MG TABLET 2. Wheeze - ICD9: 786.07, ICD10: R06.2 xr negative tx as above - XR CHEST 2V FRONTAL/LAT - Dictated by : MARCI BRANDON MD Impression IMPRESSION: No acute radiographic abnormality. Discussed smoking cessation and use of asthma inhalers Prescription instructions reviewed with patient as applicable. Patient advised if symptoms do not improve or if symptoms worsen sooner, to contact the office for further evaluation by their primary care physician. Potential red flag symptoms discussed with the patient. Reviewed appropriate action plan to take if red flag symptoms occur. Patient agreeable to treatment plan. Prem Barreto APRN.HARJEET a Referring Provider: SELF [200] Allergies As of Date: 07/23/2018 Noted Allergy Reaction CELEXA (CITALOPRAM) 05/21/2017 5 - Intolerance Comments: Increased anxiety and depression MOLD 09/25/2006 oranges, bananas, peas, mushrooms*09/03/2006 RAGWEED 09/03/2006 Comments: molds SHELLFISH 09/03/2006 WELLBUTRIN (BUPROPION) 12/28/2015 14 - Other: See Comments Comments: increased anxiety Tried twice (by itself) ZOLOFT (SERTRALINE) 05/21/2017 5 - Intolerance Comments: Increased anxiety and depression Date Reviewed: 07/23/2018 Reviewed by: Prem ([facility]) - Fully Assessed Reason for Visit: cough and chest congestion [Other] Cmt: x 2 weeks Primary Visit Diagnosis:Sinobronchitis [J32.9, J40] Other Visit Diagnosis:Wheeze [R06.2] Order(s):XR CHEST 2V FRONTAL/LAT [[id number]] Order #: [id number] #:[id number] doxycycline monohydrate 100 mg tabletTake 1 tablet by mouth twice daily for 10 days.Disp: 20 tabletRfl: 0 predniSONE (DELTASONE) 20 mg tabletTake 2 tablets by mouth once daily.Disp: 5 tabletRfl: 0 Prescriptions as of 07/23/2018 Sig: LORAZEPAM 0.5 MG TABLET Take 1-2 tablets by mouth onc* DULOXETINE 20 MG CAPSULE,KARY* take 1 capsule by mouth once * ALBUTEROL SULFATE HFA 90 MCG/* Inhale 2 Puffs as instructed * SYNTHROID 75 MCG TABLET Take 1 tablet by mouth once d* VALACYCLOVIR 1 GRAM TABLET Take 2 tablets by mouth every* TRIAMCINOLONE ACETONIDE 0.1 %* Apply 1 application to affect* KETOCONAZOLE 2 % SHAMPOO Apply lather to scalp and fac* LORATADINE 10 MG TABLET Take 1 tablet by mouth once d* DOXYCYCLINE MONOHYDRATE 100 M* Take 1 tablet by mouth twice * PREDNISONE 20 MG TABLET Take 2 tablets by mouth once * POTASSIUM CHLORIDE ER 10 MEQ * Take 1-2 capsules by mouth on* * THERAPEUTIC MULTIVITAMIN TABL* Take one(1) tablet daily. Problem List As Of Date 07/23/2018 Noted Resolved Asthma [J45.909] INVALID FOR* ALLERGIC RHINITIS NOS [J30.9] INVALID FOR* JOINT PAIN-SHLDER [M25.519] INVALID FOR* Syrinx, persistent central canal [G95.89] INVALID FOR* Fibromyalgia [M79.7] INVALID FOR* Acquired hypothyroidism [E03.9] INVALID FOR* Hypokalemia [E87.6] INVALID FOR* Prescriptions ordered this encounter Disp Refills Start End DOXYCYCLINE MONOHYDRATE 100 MG TABLET 20 t* 0 07/23/2018 08/02/2018 Cmt: May transfer to [facility] if less expensive. Route: ORAL Sig: Take 1 tablet by mouth twice daily for 10 days. PREDNISONE 20 MG TABLET 5 ta* 0 07/23/2018 Route: ORAL Sig: Take 2 tablets by mouth once daily. Encounter Status:Closed by PREM BARRETO CNP on 07/23/18 CNCO Observed: 02/05/2018 Status: COMPLETED Source: [place] 5:08 PM [facility] [place] REPOSITORY [facility] ID: [id number] Author: Mammography Coordinator Service: (none) Author Type: Physician Type: Letter Filed: 02/06/2018 11:32 PM Note Text: February 05, 2018 PID: [id number] Jada Mahoney [address] [place] [address] Dear Ms. Mahoney, We are pleased to inform you that the results of your recent breast imaging exam on 02/05/2018 are normal. Your mammogram demonstrates that you have dense breast tissue, which could hide abnormalities. Dense breast tissue, in and of itself, is a relatively common condition. Therefore, this information is not provided to cause undue concern; rather, it is to raise your awareness and promote discussion with your health care provider regarding the presence of dense breast tissue in addition to other risk factors. Early detection of cancer is very important. We also understand recommendations regarding breast cancer screening are controversial. Please discuss with your primary care provider which strategy is best for you and whether a mammogram is right for you. Your imaging studies and report will be kept on file at [facility] as part of your permanent medical record and are available for your continuing care. Thank you for allowing us to help in meeting your health care needs. Sincerely, Dr. Hays Interpreting Radiologist [facility], [place] (Normal over 40) PROGRESS Observed: 02/05/2018 Status: COMPLETED Source: [place] 2:15 PM [facility] REPOSITORY HNO ID: [id number] Author: Deirdre Arceo Service: (none) Author Type: Nurse Practitioner Type: Progress Notes Filed: 02/05/2018 3:05 PM Note Text: Jada Mahoney is a 47 year old who presents for her annual gynecologic exam without complaints. Menses: cycles every 25-30 days and 5-6 days of flow. Contraception: vasectomy HPV vaccine: No Last Pap: 2014 normal HPV: negative History of abnormal pap: Yes Last mammogram: 2017 pending Sexually active: Yes Pain with intercourse: No Postcoital bleeding: No Vaginal dryness: No Obstetric History T0 L2 SAB1 TAB0 Ectopic0 Multiple0 Live Births0 PAST MEDICAL HISTORY Diagnosis Date - Anxiety - BCC (basal cell carcinoma), face ~2010 - Irritable bowel syndrome - MVP (mitral valve prolapse) - Other abnormal Papanicolaou smear of cervix and cervical HPV(795.09) 1994 - Ovarian cyst - Unspecified asthma(493.90) 2004 PAST SURGICAL HISTORY Procedure Laterality Date - DELIVERY ONLY , low cervical x 2 - PAST SURGICAL HISTORY OF 1994 cryo of cervix FAMILY HISTORY Problem Relation Age of Onset - Asthma Father - Asthma Brother SOCIAL HISTORY Social History Substance Use Topics - Smoking status: Former Smoker Packs/day: 2.00 Years: 15.00 Types: Cigarettes - Smokeless tobacco: Never Used - Alcohol use Yes Comment: occasional REVIEW OF SYSTEMS Abdomen: No abdominal pain, nausea, vomiting No bloating, early satiety, indigestion, or increased flatulence. Goes back in forth between diarrhea and constipation. Bladder: No dysuria, gross hematuria, urinary frequency, urinary urgency, or incontinence. Breast: No breast lumps, nipple d/c, overlying skin changes, redness or skin retraction. Allergies and current medication updated:Yes EXAM: There were no vitals taken for this visit. GENERAL: pleasant, female in no apparent distress HEENT: Normocephalic, atraumatic, mucus membranes moist and no lesions NECK: Supple, full range of motion, no adenopathy and thyroid normal DERMATOLOGY: Normal, without lesions, non-icteric and non-hirsute BREAST: soft, non-tender, symmetric, no dominant mass, normal nipple-areolar complex, no lymphadenopathy and no nipple discharge CHEST: Normal inspiratory effort ABDOMEN: soft, non-tender and no masses PELVIC: external genitalia normal, normal Bartholin's glands, urethra, Post's glands, no vulvar lesions, no cervical lesions, good vaginal support, physiologic discharge present, normal appearing perineal body and perianal region BIMANUAL: uterus normal size, shape and consistency, no adnexal masses, non-tender and no cervical motion tenderness RECTOVAGINAL: deferred. NEURO: alert and oriented x3,exam grossly non-focal EXTREMITIES: normal ASSESSMENT/PLAN: 1) Health maintenance: Pap/HPV up to date. Mammogram up to date . Nutrition, exercise and routine health maintenance exams reviewed. Calcium/Vitamin D supplementation information provided. 2) Contraception: vasectomy. Contraceptive options reviewed and information provided. 3) STD screening: Declined STD check. 4) Follow up one year or sooner as needed Deirdre Arceo APRN.HARJEET CNOV Observed: 02/05/2018 Status: COMPLETED Source: [place] 2:15 PM [facility] REPOSITORY Office Visit (WOOB) JADA MAHONEY ([id number]) 1970 F Date Time Provider Department 02/05/18 2:15 PM DEIRDRE ARCEO (HARJEET) WOOB During your visit today, we recorded the following information about you: Blood pressure Weight Height Last Period 120/74 48 kg 1.499 m 01/19/18 Deirdre Arceo APRN.CNP 02/05/2018 3:05 PM Signed Jada Salvador Mahoney is a 47 year old who presents for her annual gynecologic exam without complaints. Menses: cycles every 25-30 days and 5-6 days of flow. Contraception: vasectomy HPV vaccine: No Last Pap: 2014 normal HPV: negative History of abnormal pap: Yes Last mammogram: 2017 pending Sexually active: Yes Pain with intercourse: No Postcoital bleeding: No Vaginal dryness: No Obstetric History T0 L2 SAB1 TAB0 Ectopic0 Multiple0 Live Births0 PAST MEDICAL HISTORY Diagnosis Date - Anxiety - BCC (basal cell carcinoma), face ~2010 - Irritable bowel syndrome - MVP (mitral valve prolapse) - Other abnormal Papanicolaou smear of cervix and cervical HPV(795.09) 1994 - Ovarian cyst - Unspecified asthma(493.90) 2004 PAST SURGICAL HISTORY Procedure Laterality Date - DELIVERY ONLY , low cervical x 2 - PAST SURGICAL HISTORY OF 1994 cryo of cervix FAMILY HISTORY Problem Relation Age of Onset - Asthma Father - Asthma Brother SOCIAL HISTORY Social History Substance Use Topics - Smoking status: Former Smoker Packs/day: 2.00 Years: 15.00 Types: Cigarettes - Smokeless tobacco: Never Used - Alcohol use Yes Comment: occasional REVIEW OF SYSTEMS Abdomen: No abdominal pain, nausea, vomiting No bloating, early satiety, indigestion, or increased flatulence. Goes back in forth between diarrhea and constipation. Bladder: No dysuria, gross hematuria, urinary frequency, urinary urgency, or incontinence. Breast: No breast lumps, nipple d/c, overlying skin changes, redness or skin retraction. Allergies and current medication updated:Yes EXAM: There were no vitals taken for this visit. GENERAL: pleasant, female in no apparent distress HEENT: Normocephalic, atraumatic, mucus membranes moist and no lesions NECK: Supple, full range of motion, no adenopathy and thyroid normal DERMATOLOGY: Normal, without lesions, non-icteric and non-hirsute BREAST: soft, non-tender, symmetric, no dominant mass, normal nipple-areolar complex, no lymphadenopathy and no nipple discharge CHEST: Normal inspiratory effort ABDOMEN: soft, non-tender and no masses PELVIC: external genitalia normal, normal Bartholin's glands, urethra, Post's glands, no vulvar lesions, no cervical lesions, good vaginal support, physiologic discharge present, normal appearing perineal body and perianal region BIMANUAL: uterus normal size, shape and consistency, no adnexal masses, non-tender and no cervical motion tenderness RECTOVAGINAL: deferred. NEURO: alert and oriented x3,exam grossly non-focal EXTREMITIES: normal ASSESSMENT/PLAN: 1) Health maintenance: Pap/HPV up to date. Mammogram up to date . Nutrition, exercise and routine health maintenance exams reviewed. Calcium/Vitamin D supplementation information provided. 2) Contraception: vasectomy. Contraceptive options reviewed and information provided. 3) STD screening: Declined STD check. 4) Follow up one year or sooner as needed Deirdre Arceo APRN.OCULARIST Referring Provider: SELF [[id number]] Allergies As of Date: 02/05/2018 Noted Allergy Reaction CELEXA (CITALOPRAM) 05/21/2017 5 - Intolerance Comments: Increased anxiety and depression MOLD 09/25/2006 oranges, bananas, peas, mushrooms*09/03/2006 RAGWEED 09/03/2006 Comments: molds SHELLFISH 09/03/2006 WELLBUTRIN (BUPROPION) 12/28/2015 14 - Other: See Comments Comments: increased anxiety Tried twice (by itself) ZOLOFT (SERTRALINE) 05/21/2017 5 - Intolerance Comments: Increased anxiety and depression Date Reviewed: 02/05/2018 Reviewed by: Deirdre Arceo - Fully Assessed Reason for Visit: Well Woman [[id number]] Primary Visit Diagnosis:Encounter for gynecological examination (general) (routine) without abnormal findings [Z01.419] Other Visit Diagnosis:Visit for screening mammogram [Z12.31] Order(s):[facility] SCREENING [[id number]] Order #: [id number] FUTURE Prescriptions as of 02/05/2018 Sig: DULOXETINE 20 MG CAPSULE,KARY* Take 1 capsule by mouth once * SYNTHROID 75 MCG TABLET Take 1 tablet by mouth once d* VALACYCLOVIR 1 GRAM TABLET Take 2 tablets by mouth every* LORAZEPAM 0.5 MG TABLET Take 1-2 tablets by mouth onc* ALBUTEROL SULFATE HFA 90 MCG/* Inhale 2 Puffs as instructed * TRIAMCINOLONE ACETONIDE 0.1 %* Apply 1 application to affect* POTASSIUM CHLORIDE ER 10 MEQ * Take 1-2 capsules by mouth on* KETOCONAZOLE 2 % SHAMPOO Apply lather to scalp and fac* LORATADINE 10 MG TABLET Take 1 tablet by mouth once d* * THERAPEUTIC MULTIVITAMIN TABL* Take one(1) tablet daily. Problem List As Of Date 02/05/2018 Noted Resolved Asthma [J45.909] INVALID FOR* ALLERGIC RHINITIS NOS [J30.9] INVALID FOR* JOINT PAIN-SHLDER [M25.519] INVALID FOR* Syrinx, persistent central canal [G95.89] INVALID FOR* Fibromyalgia [M79.7] INVALID FOR* Acquired hypothyroidism [E03.9] INVALID FOR* Hypokalemia [E87.6] INVALID FOR* Disposition: Return in 1 year (on 02/05/2019) for Annual Exam. Follow-up and Disposition History Recorded Encounter Status:Closed by DEIRDRE ARCEO on 02/05/18 [facility] SCREENING Observed: 02/05/2018 Status: F Source: [place] 2:10 PM [facility] REPOSITORY * * *Final Report* * * DATE OF EXAM: Feb 05 2018 2:10PM [place] [id number] - [facility] SCREENING / PROCEDURE REASON: Encounter for screening mammogram for malignant neoplasm of breast * * * * Physician Interpretation * * * * RESULT: #[id number] - [facility] SCREENING BILATERAL DIGITAL SCREENING MAMMOGRAM WITH CAD: 02/05/2018 HISTORY: Encounter For Screening Mammogram For Malignant Neoplasm Of Breast /priors available for comparison. RESULT: TECHNIQUE: The study was acquired using full field digital technology and interpreted from soft copy. Current study was also evaluated with a Computer Aided Detection (CAD). Comparison is made to exams dated: 08/07/2016 mammogram and 01/25/2015 mammogram - [facility], [place]. The tissue of both breasts is extremely dense, which lowers the sensitivity of mammography. No significant masses, calcifications, or other findings are seen in either breast. There has been no significant interval change. IMPRESSION: NEGATIVE There is no mammographic evidence of malignancy.A 1 year screening mammogram is recommended. Dany caballero/diana:02/05/2018 17:08:32 Insole Tape Stitcher Uco: Shaina BURTON(R)(M), [facility] letter sent: Normal over 40 Mammogram BI-RADS: 1 Negative Water Pump Operator: Diana Transcribe Date/Time: Feb 05 2018 1:57P Dictated by: DANY HAYS MD This examination was interpreted and the report reviewed and electronically signed by: DANY HAYS MD on Feb 05 2018 5:08PM EST [id number] PROCEDURE Observed: 02/05/2018 Status: COMPLETED Source: [place] 1:56 PM [facility] REPOSITORY HNO ID: [id number] Author: Prasanna Chopra (Rt) Service: (none) Author Type: Retail Stocker Type: Procedures Filed: 02/05/2018 1:57 PM Note Text: Radiology Service Progress Note PATIENT NAME: Jada Mahoney DATE OF SERVICE: February 05, 2018 TIME: 1:56 PM PATIENT IDENTITY VERIFICATION COMPLETED USING TWO (2) METHODS: Patient confirmed name verbally and Date of . PATIENT GENDER DATA: Female. status: : No status: NO. PATIENT RELEVANT IMPLANT DATA REVIEWED: Not Applicable RADIOLOGY DEPARTMENT: [facility] DATA: Not applicable SIGNED BY: RT Keysha February 05, 2018 1:56 PM PROGRESS Observed: 09/24/2017 Status: COMPLETED Source: [place] 8:54 AM [facility] REPOSITORY HNO ID: [id number] Author: Vinay Baca Service: (none) Author Type: Physician Type: Progress Notes Filed: 09/25/2017 12:19 AM Note Text: Patient presents with: Recheck SUBJECTIVE: Jada Mahoney is a 47 year old year old lady here today for 4 month follow up appointment for review of medical conditions. Overall doing well. Reviewed meds. Lorazepam prescription lasts 1 to 2 months without adverse effects. PAST MEDICAL HISTORY Diagnosis Date - Anxiety - BCC (basal cell carcinoma), face ~2010 - Irritable bowel syndrome - MVP (mitral valve prolapse) - Other abnormal Papanicolaou smear of cervix and cervical HPV(795.09) 1994 - Ovarian cyst - Unspecified asthma(493.90) 2004 Current Outpatient Prescriptions: triamcinolone acetonide (KENALOG) 0.1 % cream Apply 1 application to affected area three times daily as needed. Apply sparingly to area for rash/itching. DULoxetine (CYMBALTA) 20 mg capsule Take 1 capsule by mouth once daily. LORazepam (ATIVAN) 0.5 mg tab Take 1-2 tablets by mouth once daily as needed for up to 30 days. valACYclovir (VALTREX) 1 gram tab Take 2 tablets by mouth every 12 hours. for 2 doses for cold sore (total 4 pills). Repeat as needed for acute cold sore potassium chloride SR (MICRO-K) 10 mEq CR capsule Take 1-2 capsules by mouth once daily. SYNTHROID 75 mcg tablet take 1 tablet by mouth once daily ON AN EMPTY STOMACH albuterol HFA (PROVENTIL HFA, VENTOLIN HFA) 90 mcg/actuation inhaler Inhale 2 Puffs as instructed four times daily as needed. FOR WHEEZING AND SHORTNESS OF BREATH. ketoconazole (NIZORAL) 2 % shampoo Apply lather to scalp and face as directed for 5 minutes then rinse daily as needed. Dispense 1 bottle, not 1 ml. loratadine (CLARITIN) 10 mg tablet Take 1 tablet by mouth once daily. as needed therapeutic multivitamin ORAL Tab Take one(1) tablet daily. No current facility-administered medications for this visit. OBJECTIVE: BP 100/72 Pulse 74 Resp 16 Wt 47.2 kg (104 lb) BMI 21.01 kg/m2 Patient is alert, oriented times 3, no apparent distress, affect is bright, reactive. Last 5 Encounter BP Readings: Date: BP: 09/24/2017 100/72 05/21/2017 112/72 02/07/2017 112/72 01/15/2017 116/84 07/18/2016 108/68 Last 5 Encounter Wt Readings: Date: Wt: 09/24/2017 47.2 kg (104 lb) 05/21/2017 47.2 kg (104 lb) 02/07/2017 48.5 kg (107 lb) 01/15/2017 48.4 kg (106 lb 12.8 oz) 07/18/2016 54.4 kg (120 lb) Heart: Regular rate, rhythm, no murmurs, gallops, rubs. Lungs: Clear to auscultation, bilaterally, breathing non labored. Ext: No cyanosis, clubbing, or edema. Prior labs reviewed. ASSESSMENT AND PLAN: Encounter Diagnosis ICD-10-CM 1. Panic attacks F41.0 LORazepam (ATIVAN) 0.5 mg tab 2. Anxiety and depression F41.8 DULoxetine (CYMBALTA) 20 mg capsule 3. Fibromyalgia M79.7 DULoxetine (CYMBALTA) 20 mg capsule 4. Hypokalemia E87.6 BASIC METABOLIC PNL 5. Hypertriglyceridemia without hypercholesterolemia E78.1 LIPID PANEL BASIC 6. Acquired hypothyroidism E03.9 TSH BLD T4 FREE/FREE THYROX 7. Encounter for long-term current use of medication Z79.899 BASIC METABOLIC PNL 8. Mild intermittent asthma without complication J45.20 albuterol HFA (VENTOLIN HFA) 90 mcg/actuation inhaler Doing well on current meds. Clinically euthyroid. TSH fine. Continue to adjust dose of replacement as indicated based on symptoms and labs. No signs of adverse effects from meds. Cymbalta effective. Will lget labs prior to next appointment (anytime). Stable with control of anxiety. RX for lorazepam lasts up to 2 months No signs of diversion or abuse of medication(s); no adverse effects. Continue present management. [employer] website checked and validated. All prescriptions have been APPROPRIATELY filled. No suspicious activity was identified.- 09/25/2017 by Vinay Baca MD Above issues addressed with patient. Patient involved in shared decision making for management of her medical issues. History and medications reviewed. Epic updated as needed Refills taken care of and meds adjusted as indicated after reviewed history, exam and labs. Health Maintenance reviewed. Updated record and/or ordered tests as recorded. Further evaluation and treatment as indicated. Encouraged on efforts at healthy diet and regular exercise and adequate sleep. The majority of the visit was spent counseling and/or coordinating care for the patient. Whnk-yp-dhmt time was at least 25 minutes. Vinay Baca MD CNOV Observed: 09/24/2017 Status: COMPLETED Source: [place] 8:20 AM [facility] REPOSITORY Office Visit (INTMWS) JADA MAHONEY ([id number]) 1970 F Date Time Provider Department 09/24/17 8:20 AM VINAY BACA During your visit today, we recorded the following information about you: Pulse Respiration Blood pressure Weight 74/minute 16/minute 100/72 47.2 kg Vinay Baca MD 09/25/2017 12:19 AM Signed Patient presents with: Recheck SUBJECTIVE: Jada Mahoney is a 47 year old year old lady here today for 4 month follow up appointment for review of medical conditions. Overall doing well. Reviewed meds. Lorazepam prescription lasts 1 to 2 months without adverse effects. PAST MEDICAL HISTORY Diagnosis Date - Anxiety - BCC (basal cell carcinoma), face ~2010 - Irritable bowel syndrome - MVP (mitral valve prolapse) - Other abnormal Papanicolaou smear of cervix and cervical HPV(795.09) 1994 - Ovarian cyst - Unspecified asthma(493.90) 2004 Current Outpatient Prescriptions: triamcinolone acetonide (KENALOG) 0.1 % cream Apply 1 application to affected area three times daily as needed. Apply sparingly to area for rash/itching. DULoxetine (CYMBALTA) 20 mg capsule Take 1 capsule by mouth once daily. LORazepam (ATIVAN) 0.5 mg tab Take 1-2 tablets by mouth once daily as needed for up to 30 days. valACYclovir (VALTREX) 1 gram tab Take 2 tablets by mouth every 12 hours. for 2 doses for cold sore (total 4 pills). Repeat as needed for acute cold sore potassium chloride SR (MICRO-K) 10 mEq CR capsule Take 1-2 capsules by mouth once daily. SYNTHROID 75 mcg tablet take 1 tablet by mouth once daily ON AN EMPTY STOMACH albuterol HFA (PROVENTIL HFA, VENTOLIN HFA) 90 mcg/actuation inhaler Inhale 2 Puffs as instructed four times daily as needed. FOR WHEEZING AND SHORTNESS OF BREATH. ketoconazole (NIZORAL) 2 % shampoo Apply lather to scalp and face as directed for 5 minutes then rinse daily as needed. Dispense 1 bottle, not 1 ml. loratadine (CLARITIN) 10 mg tablet Take 1 tablet by mouth once daily. as needed therapeutic multivitamin ORAL Tab Take one(1) tablet daily. No current facility-administered medications for this visit. OBJECTIVE: BP 100/72 Pulse 74 Resp 16 Wt 47.2 kg (104 lb) BMI 21.01 kg/m2 Patient is alert, oriented times 3, no apparent distress, affect is bright, reactive. Last 5 Encounter BP Readings: Date: BP: 09/24/2017 100/72 05/21/2017 112/72 02/07/2017 112/72 01/15/2017 116/84 07/18/2016 108/68 Last 5 Encounter Wt Readings: Date: Wt: 09/24/2017 47.2 kg (104 lb) 05/21/2017 47.2 kg (104 lb) 02/07/2017 48.5 kg (107 lb) 01/15/2017 48.4 kg (106 lb 12.8 oz) 07/18/2016 54.4 kg (120 lb) Heart: Regular rate, rhythm, no murmurs, gallops, rubs. Lungs: Clear to auscultation, bilaterally, breathing non labored. Ext: No cyanosis, clubbing, or edema. Prior labs reviewed. ASSESSMENT AND PLAN: Encounter Diagnosis ICD-10-CM 1. Panic attacks F41.0 LORazepam (ATIVAN) 0.5 mg tab 2. Anxiety and depression F41.8 DULoxetine (CYMBALTA) 20 mg capsule 3. Fibromyalgia M79.7 DULoxetine (CYMBALTA) 20 mg capsule 4. Hypokalemia E87.6 BASIC METABOLIC PNL 5. Hypertriglyceridemia without hypercholesterolemia E78.1 LIPID PANEL BASIC 6. Acquired hypothyroidism E03.9 TSH BLD T4 FREE/FREE THYROX 7. Encounter for long-term current use of medication Z79.899 BASIC METABOLIC PNL 8. Mild intermittent asthma without complication J45.20 albuterol HFA (VENTOLIN HFA) 90 mcg/actuation inhaler Doing well on current meds. Clinically euthyroid. TSH fine. Continue to adjust dose of replacement as indicated based on symptoms and labs. No signs of adverse effects from meds. Cymbalta effective. Will lget labs prior to next appointment (anytime). Stable with control of anxiety. RX for lorazepam lasts up to 2 months No signs of diversion or abuse of medication(s); no adverse effects. Continue present management. [employer] website checked and validated. All prescriptions have been APPROPRIATELY filled. No suspicious activity was identified.- 09/25/2017 by Vinay Baca MD Above issues addressed with patient. Patient involved in shared decision making for management of her medical issues. History and medications reviewed. Epic updated as needed Refills taken care of and meds adjusted as indicated after reviewed history, exam and labs. Health Maintenance reviewed. Updated record and/or ordered tests as recorded. Further evaluation and treatment as indicated. Encouraged on efforts at healthy diet and regular exercise and adequate sleep. The majority of the visit was spent counseling and/or coordinating care for the patient. Cute-ie-thst time was at least 25 minutes. Vinay Baca MD Referring Provider: VINAY BACA [[id number]] Allergies As of Date: 09/24/2017 Noted Allergy Reaction CELEXA (CITALOPRAM) 05/21/2017 5 - Intolerance Comments: Increased anxiety and depression MOLD 09/25/2006 RAGWEED 09/03/2006 Comments: molds SHELLFISH 09/03/2006 WELLBUTRIN (BUPROPION) 12/28/2015 14 - Other: See Comments Comments: increased anxiety Tried twice (by itself) ZOLOFT (SERTRALINE) 05/21/2017 5 - Intolerance Comments: Increased anxiety and depression oranges, bananas, peas, mushrooms*09/03/2006 Date Reviewed: 09/24/2017 Reviewed by: Yvette Grant Fisheries Biologist - Fully Assessed Reason for Visit: Recheck [92] Primary Visit Diagnosis:Panic attacks [F41.0] Other Visit Diagnoses:Anxiety and depression [F41.8] Fibromyalgia [M79.7] Hypokalemia [E87.6] Hypertriglyceridemia without hypercholesterolemia [E78.1] Acquired hypothyroidism [E03.9] Encounter for long-term current use of medication [Z79.899] Mild intermittent asthma without complication [J45.20] Order(s):LORazepam (ATIVAN) 0.5 mg tabTake 1-2 tablets by mouth once daily as needed for up to 30 days.Disp: 40 tabletRfl: 0 DULoxetine (CYMBALTA) 20 mg capsuleTake 1 capsule by mouth once daily.Disp: 30 capsuleRfl: 11 BASIC METABOLIC PNL [SQBMP] Order #: [id number] FUTURE TSH BLD [SQTSH] Order #: [id number] FUTURE T4 FREE/FREE THYROX [SQFT4] Order #: [id number] FUTURE LIPID PANEL BASIC [SQLIPB] Order #: [id number] FUTURE albuterol HFA (VENTOLIN HFA) 90 mcg/actuation inhalerInhale 2 Puffs as instructed every 4 hours as needed for Wheezing/Shortness of Breath.Disp: 1 InhalerRfl: 5 Prescriptions as of 09/24/2017 Sig: LORAZEPAM 0.5 MG TABLET Take 1-2 tablets by mouth onc* DULOXETINE 20 MG CAPSULE,KARY* Take 1 capsule by mouth once * ALBUTEROL SULFATE HFA 90 MCG/* Inhale 2 Puffs as instructed * TRIAMCINOLONE ACETONIDE 0.1 %* Apply 1 application to affect* VALACYCLOVIR 1 GRAM TABLET Take 2 tablets by mouth every* POTASSIUM CHLORIDE ER 10 MEQ * Take 1-2 capsules by mouth on* SYNTHROID 75 MCG TABLET take 1 tablet by mouth once d* KETOCONAZOLE 2 % SHAMPOO Apply lather to scalp and fac* LORATADINE 10 MG TABLET Take 1 tablet by mouth once d* * THERAPEUTIC MULTIVITAMIN TABL* Take one(1) tablet daily. Problem List As Of Date 09/24/2017 Noted Resolved Asthma [J45.909] INVALID FOR* ALLERGIC RHINITIS NOS [J30.9] INVALID FOR* JOINT PAIN-SHLDER [M25.519] INVALID FOR* Syrinx, persistent central canal [G95.89] INVALID FOR* Fibromyalgia [M79.7] INVALID FOR* Acquired hypothyroidism [E03.9] INVALID FOR* Hypokalemia [E87.6] INVALID FOR* Prescriptions ordered this encounter Disp Refills Start End LORAZEPAM 0.5 MG TABLET 40 t* 0 09/24/2017 10/24/2017 Class: Print RX Route: ORAL Sig: Take 1-2 tablets by mouth once daily as needed for up to 30 days. DULOXETINE 20 MG CAPSULE,DELAYED REL* 30 c* 11 09/24/2017 Route: ORAL Sig: Take 1 capsule by mouth once daily. ALBUTEROL SULFATE HFA 90 MCG/ACTUATI* 1 In* 5 09/24/2017 Cmt: May give covered formulary equivalent albuterol HFA inhaler Route: INHALATION Sig: Inhale 2 Puffs as instructed every 4 hours as needed for Wheezing/Shortness of Breath. Medications Discontinued During This Encounter LORazepam (ATIVAN) 0.5 mg tab 40 t* 0 08/07/2017 09/24/2017 Class: Call Rx Route: ORAL Sig: Take 1-2 tablets by mouth once daily as needed for up to 30 days. Disc: Reason for discontinue is not on file. DULoxetine (CYMBALTA) 20 mg capsule 30 c* 2 08/27/2017 09/24/2017 Route: ORAL Sig: Take 1 capsule by mouth once daily. Disc: Reason for discontinue is not on file. albuterol HFA (PROVENTIL HFA, VENTOL* 1 In* 5 07/03/2016 09/24/2017 Route: INHALATION Sig: Inhale 2 Puffs as instructed four times daily as needed. FOR WHEEZING AND SHORTNESS OF BREATH. Disc: Reason for discontinue is not on file. Disposition: Return in about 4 months (around 01/24/2018) for 4 months follow up, With labs prior. Follow-up and Disposition History Recorded Encounter Status:Closed by VINAY BACA MD on 09/25/17 ALLERGIES ALLERGIES DATE TYPE / CODE NAME / CODE REACTION SEVERITY SOURCE Drug bupropion/[id number] Other Unknown Jenifer 9 Allergy/[id number]( 4611(RXNORM) [facility] SNOMED [facility]) Hospital Repository DRUG CITALOPRAM INTOLERANCE [place] 7 INGREDI/017618548( [facility] SNOMED CT) [place] Repository DRUG SERTRALINE INTOLERANCE [place] INGREDI/231916314( [facility] SNOMED CT) [place] Repository DRUG BUPROPION OTHER: SEE C [place] INGREDI/193544303( [facility] SNOMED CT) [place] Repository Drug hydrocodone Angioedema Unknown [place] 4 Allergy/467867189( bitartrate/F0000 [facility] SNOMED [facility]) 92600(RXNORM) Hospital Repository Drug shellfish Anaphylaxis Unknown [place] 4 Allergy/530169618( derived/C4548612 [facility] SNOMED CT) 54(RXNORM) Hospital Repository DRUG MOLD [place] 7 INGREDI/534360756( [facility] SNOMED CT) [place] Repository Environ/718698106( [place]AGWE[facility] [place] [address]) [facility] Repository Food/554289662(SNO SHELLFISH [place] [address]) [facility] Repository Miscellaneous OTHER [place] [address] Allergy/105653038( [facility] SNOMED CT) [place] Repository ENCOUNTERS ENCOUNTERS ADMIT/DISCHARGE ACCOUNT ADMITTING ENCOUNTER LOCATION SOURCE NUMBER CLASS 08/05/2018 [id number] [place], Ambulatory BMSBuilding:Amy Burgess MS.[facility] Repository 08/05/2018 [id number] White, Bobbi Ambulatory BMSBuilding:B Jenifer MS.[facility] Repository 08/04/2018/08/08/19 [id number] White, Bobbi Inpatient [place] Jenifer 19 Encounter [facility] ing:XY9Flxr: Repository XV312Whe: 1 2018 [id number] White, Bobbi Ambulatory BMSBuilding:B Jenifer MS.[facility] Repository 2018 [id number] , Bobbi Ambulatory BMSBuilding:Amy Burgess MS.[facility] Repository 2018 [id number] White, Bobbi Ambulatory BMSBuilding:Amy Burgess MS.[facility] Repository 07/23/2018/07/23/[id number] Repository 07/23/2018/07/24/[id number] Repository 02/05/2018/02/07/[id number] Repository 02/05/2018/02/06/[id number] Repository 09/24/2017/09/26/[id number] Repository PAYERS PAYERS ENCOUNTER GUARANTOR PAYER SUBSCRIBER SOURCE 08/05/2018 MIGUEL ANGEL [place] Primary Insurance:MED MIGUEL ANGEL [id number] E MUTUAL TPAPolicy MALONEDOB: [facility] Number: [id number], [place] [id number] Repository 11440Aao: 330) Date:9611-01-04JZ [phone] () [address], [place] [address]QF: CHECK WEBSITE 08/05/2018 Secondary NOT GIVENUNK [place] Insurance:SELF PAY [facility] Number: Effective Repository Date:2018 08/05/2018 MIGUEL ANGEL [place] Primary Insurance:MED MIGUEL ANGEL [place] [id number] E MUTUAL TPAPolicy MALONEDOB: Community [place] Number: [id number], [place] [id number] Repository [address]Auq: (330) Date:7688-70-61YL [phone] () [address]DILRTYSDC, [place] [address]TD: CHECK WEBSITE 08/05/2018 Secondary NOT GIVENUNK Jenifer Insurance:SELF PAY [facility] Number: Effective Repository Date:2018-08-05 2018 MIGUEL ANGEL [place] Primary Insurance:MED MIGUEL ANGEL Jenifer [id number] E MUTUAL TPAPolicy MALONEDOB: [facility] [place] Number: [id number], [place] [id number] Repository [address]Pmu: (330) Date:8274-25-61LA [phone] () [address]WEIVPSZZS, [place] [address]UM: CHECK WEBSITE 2018 Secondary NOT GIVENUNK Jenifer Insurance:SELF PAY [facility] Number: Effective Repository Date:2018 2018 MIGUEL ANGEL [place] Primary Insurance:MED MIGUEL ANGEL Jenifer [id number] E MUTUAL TPAPolicy MALONEDOB: [facility] [place] Number: [id number], [place] [id number] Repository 25[address]Nej: (330) Date:1017-03-32NQ [phone] () [address]UHNZWFVL, [place] [address]GR: CHECK WEBSITE 2018 Secondary NOT GIVENUNK [place] Insurance:SELF PAY [facility] Number: Effective Repository Date:2018 2018 MIGUEL ANGEL Valdes Primary Insurance:MED MIGUEL ANGEL [place] [id number] E MUTUAL TPAPolicy MALONEDOB: [facility] [place] Number: [id number], [place] [id number] Repository [address]Fgj: (330) Date:9902-05-98YY [phone] () [address]POX[place], [place] [address]VG: CHECK WEBSITE 2018 Secondary NOT GIVENUNK Jenifer Insurance:SELF PAY [facility] Number: Effective Repository Date:2018 2018 MIGUEL ANGEL [place] Primary Insurance:[facility] [id number] [facility] MALONEDOB: [facility] Number: [id number], [place] [id number] Repository [address]Tfs: (330) Date:1925-06-98PA [phone] () 00412TVTTNWBGO, [place] [address]ZR: CHECK WEBSITE 2018 Secondary NOT GIVENUNK Jenifer Insurance:SELF PAY [facility] Number: Effective Repository Date:2018
== END 2018-08-08 16:51 | disposition home or self-care (01) | DRG 202 ==
LOC: ED 21:31 → MS3 08-05 00:34
PROVIDERS: Admitting Provider Family Medicine; Emergency Provider Emergency Medicine; Family Provider Internal Medicine; PCP Internal Medicine; Referring Provider Family Medicine; Visit Provider Internal Medicine
DX: J20.5 Acute bronchitis due to respiratory syncytial virus (principal); E87.1 Hypo-osmolality and hyponatremia; J45.901 Unspecified asthma with (acute) exacerbation; E03.9 Hypothyroidism, unspecified; R09.02 Hypoxemia; R06.89 Other abnormalities of breathing; E86.1 Hypovolemia; F41.9 Anxiety disorder, unspecified; F32.9 Major depressive disorder, single episode, unspecified; F17.210 Nicotine dependence, cigarettes, uncomplicated
CPT/HCPCS: 36415; 71046; 80048; 85025; 85379; 87070; 87205; 87633; 87804; 94640; 94667; 94668; 99283; J7030; A4216

== ENCOUNTER → 2018-09-04 06:54 | Outpatient (CLI) | payer OTHER, SELFPAY ==
[2018-08-22 08:33] VITALS: BMI 21.4
--- NOTE | 2018-09-05 11:28 | PFTCOMP_ITS ---
COMPLETE PULMONARY FUNCTION TEST INTERPRETATION Brief HPI: Patient is a 48 year old female, currently under the care of Dr. Jenkins, who presents to [facility] for complete pulmonary function tests secondary to diagnosis of nicotine dependence. Respiratory therapist reports good effort and reproducible results. Interpretation: Forced expiration spirometry shows no large airways obstructive ventilatory defect with an FEV1 of 80% predicted. There is no significant bronchodilator response by strict ATS criteria. Spirograms are of good quality and plateau normally. The respiratory flow volume loop shows a normal pattern. Lung volumes by body plethysmography show a normal total lung capacity at 3.61 L, 88% predicted. All other lung volumes are within normal limits. Diffusion capacity by carbon monoxide is normal at 70% predicted. The airway resistance is normal. No previous pulmonary function tests were available for review. Impression: These pulmonary function tests are grossly within normal limits.
== END ==
PROVIDERS: Family Provider Internal Medicine; PCP Internal Medicine; Referring Provider Internal Medicine Critical Care Medicine; Visit Provider Internal Medicine Critical Care Medicine
DX: F17.210 Nicotine dependence, cigarettes, uncomplicated (principal)
CPT/HCPCS: 94060; 94726; 94729

== ENCOUNTER → 2018-09-06 12:34 | Outpatient (CLI) | payer OTHER, SELFPAY ==
[2018-08-22 08:33] VITALS: BMI 21.4
[2018-09-06 12:58] VITALS: PULSE 104; PULSE 105; PULSE 108; PULSE 117; PULSE 123; PULSE 124; PULSE 125; PULSE 126; O2SAT 94; O2SAT 95; O2SAT 96; O2SAT 98; O2SAT 99
--- NOTE | 2018-09-07 10:14 | PCM.PSN.6M ---
PSN 6 Minute Walk Test - 6 Minute Walk Test 6 Minute Walk Test: 6 Minute Walk Test PSN:6-Minute Walk Test Start: 09/06/18 12:58 Freq: Status: Active Protocol: [id number].[id number] Document 09/06/18 12:58 MARY (Rec: 09/06/18 13:00 MARY [id number]) 6 Minute Walk Test Date Performed 09/06/18 Time Performed 12:30 Height 5 ft Weight: 49.895 kg Weight in Pounds 110.[address]: Lyle Jenkins Assistive device used: None Pre-test Oxygen Delivery Method Room Air Pulse Ox (%) 98 Pulse Rate (60-100 beats/min) 104 H Dyspnea Scarlett Scale (0-10) 0 Exertion Scarlett Scale (6-20) 6 1st minute Oxygen Delivery Method Room Air Pulse Ox (%) 98 Pulse Rate (60-100 beats/min) 105 H 2nd minute Oxygen Delivery Method Room Air Pulse Ox (%) 98 Pulse Rate (60-100 beats/min) 117 H 3rd minute Oxygen Delivery Method Room Air Pulse Ox (%) 96 Pulse Rate (60-100 beats/min) 123 H 4th minute Oxygen Delivery Method Room Air Pulse Ox (%) 95 Pulse Rate (60-100 beats/min) 126 H 5th minute Oxygen Delivery Method Room Air Pulse Ox (%) 95 Pulse Rate (60-100 beats/min) 125 H 6th minute Oxygen Delivery Method Room Air Pulse Ox (%) 94 Pulse Rate (60-100 beats/min) 124 H Dyspnea Scarlett Scale (0-10) 0 Exertion Scarlett Scale (6-20) 11 Post-test Oxygen Delivery Method Room Air Pulse Ox (%) 99 Pulse Rate (60-100 beats/min) 108 H Full Laps Walked 20 Partial Lap, Number of Tiles Walked 30 Total Distance Walked (ft) 1210 - Interpretation Interpretation: The patient was able to ambulate 1210 feet over the course of 6 minutes on room air with no assistive devices or breaks. The patient had an oxygen fabienne of 94%, but did develop significant tachycardia of 125 bpm during ambulation. These findings are consistent with deconditioning. - Recommendations Recommendations: No supplemental oxygen is indicated at this time.
== END ==
PROVIDERS: Family Provider Internal Medicine; PCP Internal Medicine; Referring Provider Internal Medicine Critical Care Medicine; Visit Provider Internal Medicine Critical Care Medicine
DX: F17.210 Nicotine dependence, cigarettes, uncomplicated (principal)
CPT/HCPCS: 94618

== ENCOUNTER 2019-03-08 14:45 | Emergency (ER) | payer OTHER, SELFPAY ==
[2018-09-27 09:40] VITALS: BMI 21.4
[2019-03-08 14:46] VITALS: BP 153/87; PULSE 100; RESP 16; TEMP 36.6; O2SAT 99; BMI 22.6
--- NOTE | 2019-03-08 15:26 | CT_ITS ---
STUDY: CT ABDOMEN AND PELVIS WITH CONTRAST REASON FOR EXAM: Female, 48 years old. Umbilical pain with nausea and bloating RADIATION DOSAGE (If Supplied By Facility): CTDIvol = ( 9.09 ) mGy, DLP = ( 375.59 ) mGycm TECHNIQUE: Transaxial images were obtained from the dome of the diaphragm to the symphysis pubis with oral contrast. 75ml IV/Oral Isovue 370 was administered. Sagittal and coronal images were reconstructed. Individualized dose optimization techniques were used for this CT. COMPARISON: None. FINDINGS: The visualized lung bases are unremarkable. The visualized portions of the heart are within normal limits. Normal liver. There is a solitary gallstone. Normal spleen. Normal pancreas. Normal bilateral adrenal glands. Normal right kidney. Normal left kidney. Normal visualized stomach. Normal small intestine. Normal colon. The appendix is visualized and appears normal. Normal abdominal aorta. Normal inferior vena cava. Normal retroperitoneum. Normal urinary bladder. Normal visualized uterus. There is a 2.7 cm right ovarian dominant follicle or small cyst. No pelvic free fluid. Intermediate density structure anterior to the uterine body on axial image measures 2.5 x 3.9 cm and appears to represent the left ovary and/or mass. No pelvic free fluid. There is a small umbilical hernia containing fat. Normal osseous structures. CT/Abdomen/Pelvis WITH Contrast IMPRESSION: 1. 2.5 x 3.9 cm asymmetric left ovary may represent a complex cyst/hemorrhagic cyst/mass. Pelvic ultrasound suggested. No pelvic free fluid. 2. Gallstone. Electronically Signed: Victor Manuel Lala MD ([place]) at 17:31 EDT , Service support ,
--- NOTE | 2019-03-08 15:27 | ED.DCSUM_ITS ---
History of Present Illness Chief Complaint: Abd Pain Informant: Patient - Abdominal Pain/Flank Pain Onset: 09-16 Context: Gradual Onset Timing: Continuous Quality: Aching Location: - - lower abd initially, now periumbilical as well Current Severity: Moderate Maximum Severity: Moderate Worsened by: Nothing - but eating seems to increase bloating feeling. Not Worsened By: Car ride, Food, Movement Relieved by: Nothing - including BM's, urination, eating. Not Relieved By: Ant acids, Food, Remaining Still - Nausea/Vomiting/Emesis GI Symptom: Nausea. Negative for: Vomiting Onset: Days - 3-, intermittent Severity: Mild - Diarrhea/Melena/Hematochezia GI Symptom: - - BM's have been normal. Negative for: Diarrhea, Melena, Hematochezia Associated Symptoms: Negative for: Dysuria, Frequency, Hematuria, Urgency Narrative: Patient has had gradual onset of this abdominal discomfort that has been a sending and mildly worsening. It has been continuous, has not gone away since it started. Decreased appetite. Had a history of diverticulitis, states this seems to feel different. She states the discomfort is not severe, but it has been continuous, and unusual for her. Prior similar symptoms: No - Past Medical History (1) Anxiety and depression Status: Chronic (2) Asthma Status: Chronic (3) Hypothyroidism Status: Chronic (4) Rheumatoid arthritis Status: Chronic (5) Diverticulosis Status: Chronic Past Medical History - Allergies and Home Meds Allergies/Adverse Reactions: Allergies bupropion [From Wellbutrin] Allergy (Verified 03/08/19 14:50) Other hydrocodone bitartrate [From Vicodin] Allergy (Verified 03/08/19 14:50) Angioedema shellfish derived Allergy (Verified 03/08/19 14:50) Anaphylaxis Primary Care Physician: Hali Baca MD [Primary Care Provider] - Surgical History: - - x2, right knee arthroscopic surgery, cone procedure for cervical dysplasia. Smoking Status: Current every day smoker Alcohol: None Drugs: None - Family History Maternal Family History: Family History (Last Reviewed 09/27/18 @ 09:39 by JESSICA DurantC) Father Diabetes Heart disease Asthma Arthritis Mother Rheumatoid arthritis Grandfather CVA (cerebral vascular accident) Heart disease Family History: Reports: Diabetes, Heart Disease, Hypertension Paternal Family History: Family History (Last Reviewed 09/27/18 @ 09:39 by ZACH Durant) Father Diabetes Heart disease Asthma Arthritis Mother Rheumatoid arthritis Grandfather CVA (cerebral vascular accident) Heart disease Family History: Reports: Diabetes, Heart Disease, Hypertension Review of Systems General: Denies: Chills, Fever, Sweats Eyes: Denies: Visual changes - bilaterally, Diplopia ENT: Denies: Rhinorrhea, Sore throat Cardiovascular: Denies: Chest pain, Palpitations Respiratory: Reports: Dyspnea - wheezing off and on x 3 weeks. Denies: Cough, Dyspnea on exertion Gastrointestinal: Reports: Abdominal pain, Nausea. Denies: Vomiting, Diarrhea, Melena, Hematochezia Genitourinary: Denies: Dysuria, Hematuria, Frequency Musculoskeletal: Denies: Neck pain, Back pain, Extremity Pain Skin: Denies: Rash, Wounds Neurological: Denies: Headache, Weakness, Numbness Physical Exam Vital Signs/Narrative: Vital Signs Temp Pulse Resp BP Pulse Ox 03/08/19 14:46 97.8 F 100 16 153/87 H 99 Inital Vital Signs reviewed: Yes General: Well nourished, Well developed, No Acute Distress - well-appearing, conversive Head: Normocephalic, Atraumatic Eyes: Perrl, EOMI ENT: Moist mucous membranes, No rhinorrhea Neck: Supple, Nontender Cardiovascular: Regular rate, Regular rhythm, No murmurs, Normal S1, Normal S2, Tachycardia - mild Respiratory: No distress, Chest nontender, Wheezing - inspiratory mostly, bibasilar Abdomen: Soft, Tender - diffusely, worst suprapubic, Hypoactive bowel sounds. Negative for: Nondistended - mildly distended, Guarding, Rebound tenderness Back: Nontender, Normal Inspection. Negative for: CVA tenderness Extremities: Nontender, No edema Skin: Normal color, No rash, No Trauma Neurological: Alert, Oriented x3, Cranial nerves II-XII grossly intact, Normal Strength, Normal Sensation Psychological: Normal affect, Normal Mood Diagnostic/Tx/Re-eval Impressions Abdomen/Pelvis CT 03/08/19 15:26 IMPRESSION: 1. 2.5 x 3.9 cm asymmetric left ovary may represent a complex cyst/hemorrhagic cyst/mass. Pelvic ultrasound suggested. No pelvic free fluid. 2. Gallstone. Electronically Signed: Victor Manuel Lala MD ([place]) at 17:31 EDT , Service support , Chest X-Ray 03/08/19 15:30 IMPRESSION: No airspace consolidation. Electronically Signed: Victor Manuel Lala MD ([place]) at 17:28 EDT , Service support , Transvaginal US 03/08/19 18:03 IMPRESSION: 1. Apparent solid nodule arising from left ovary. Differential considerations include an endometrioma. Neoplastic etiologies are not excluded. 2. Normal sonographic appearance of the right ovary and uterus. Electronically Signed: Marcie Leung MD at 20:33 EDT , Service support , 03/08/19 15:26 Abdomen/Pelvis WITH Contrast [CT] Stat 03/08/19 15:30 Chest PA and Lateral [RAD] Stat 03/08/19 18:03 Transvaginal Non- [US] Stat Laboratory Results 03/08/19 03/08/19 03/08/19 15:35 15:35 15:35 WBC 9.7 RBC 4.06 L Hgb 11.5 L Hct 36.2 L MCV 89.2 MCH 28.3 MCHC 31.8 L RDW Std Deviation 45.6 H RDW Coeff of [place] 14.1 Plt Count 334 MPV 9.7 Immature Gran % (Auto) 0.500 Neut % (Auto) 63.0 Lymph % (Auto) 29.5 [place] % (Auto) 5.3 Eos % (Auto) 1.5 Baso % (Auto) 0.2 Absolute Neuts (auto) 6.1 Absolute Lymphs (auto) 2.86 Nucleated RBC % 0 Sodium 142 Potassium 3.3 L Chloride 107 Carbon Dioxide 29.0 Anion Gap 6 BUN 6 L Creatinine 0.66 Estim Creat Clear Calc 85.75 Est GFR (MDRD) Af Amer 124 Est GFR (MDRD) Non-Af 102 BUN/Creatinine Ratio 9.1 L Glucose 86 Calcium 8.7 Total Bilirubin 0.30 AST 18 ALT 17 Alkaline Phosphatase 73 Total Protein 7.4 Albumin 3.7 Globulin 3.7 Albumin/Globulin Ratio 1.0 Lipase 158 Urine Color Yellow Urine Clarity Clear Urine pH 7.0 Ur Specific [place] 1.005 Urine Protein Negative Urine Glucose (UA) Normal Urine Ketones Negative Urine Occult Blood Negative Urine Nitrite Negative Urine Bilirubin Negative Urine Urobilinogen Normal Ur Leukocyte Esterase Negative Urine RBC 0 SEEN Urine WBC 0 SEEN Ur Squamous Epith Cells 0-5 SEEN Urine Bacteria 0 SEEN Urine Mucus 0 SEEN Urine Test Negative - Medical Decision Making Blood counts unremarkable and urinalysis is unremarkable, with negative test. Initially, CT with oral and IV contrast was obtained, with concern for bowel-related disease. It was unremarkable except for a left ovarian process, ultrasound was recommended for further evaluation. I do not suspect torsion here, so I do not think she had to have it emergently, however ultrasound is not usually available in some days but they were here doing an emergent exam for someone else, and so they were amenable to do the patient while she was here and she was as well. It shows what may be a solid nodule. It is possible this is a benign mass, but apparently cancerous lesion unable to be ruled out. Discussed with Madalyn Clay, the practitioner environmental tech for her gynecology group, so that we can get the patient gynecologic attention as soon as possible. I do not think admission will necessarily help this, and she is amenable to following up as an outpatient. ED Disposition - Plan for ED Patient: Disposition: Home or Assisted Living Diagnosis: Lower abdominal pain, Mass of left ovary Instructions: PELVIC PAIN, Unknown Cause Prescriptions: traMADol [Ultram] 50 mg PO Q4H PRN PRN 3 Days #20 tab PRN Reason: Pain Prescription Printed Referrals: Hali Baca MD [Primary Care Provider] - [facility] [Provider Group] - As soon as possible (call Sunday)
--- NOTE | 2019-03-08 15:30 | RAD_ITS ---
STUDY: X-RAY CHEST REASON FOR EXAM: Female, 48 years old. Shortness of breath TECHNIQUE: PA and lateral views of the chest. COMPARISON: 08/04/2018 FINDINGS: The lungs are clear and expanded. There is no demonstrated pleural abnormality. Normal size heart. Normal mediastinum and yudelka. Normal visualized pulmonary arteries. Normal visualized aortic arch and descending thoracic aorta. Normal visualized thoracic spine. Normal visualized ribs, clavicles, and shoulders. There is no demonstrated abnormality of the visualized soft tissue structures of the upper abdomen. RAD/Chest PA and Lateral IMPRESSION: No airspace consolidation. Electronically Signed: Victor Manuel Lala MD ([place]) at 17:28 EDT , Service support ,
[2019-03-08 15:41] LABS: Bacteria 0 SEEN /hpf (None Seen); Mucous, Urine 0 SEEN /hpf (<or=2+); Red Blood Cells-Urine 0 SEEN /hpf (0-5); White Blood Cells 0 SEEN /hpf (0-5)
[2019-03-08 15:44] VITALS: BP 168/82; PULSE 89; RESP 16; TEMP 36.8; O2SAT 99
[2019-03-08 15:44] LABS: Color, Urine Yellow (Yellow); Glucose, Dipstick Normal (Normal); Ketone-Dipstick Negative (Negative); Leukocyte Esterase-Dipstick Negative /ul (Negative); Nitrite-Dipstick Negative (Negative); Occult Blood-Urine Negative /ul (Negative); Protein-Dipstick Negative (Negative); Specific Gravity, Urine 1.005 (1.002-1.030); Urine Bilirubin Dipstick Negative (Negative); Urine Clarity Clear (Clear); Urine Urobilinogen Normal (Normal)
[2019-03-08] MEDS: 0.9% Normal Saline 1,000 ML 1000 ML IV (15:44)
[2019-03-08 15:45] LABS: Absolute Lymphocyte Count 2.86 X10^3/uL (0.83-4.51); Absolute Neutrophil Count 6.1 X10^3/uL (2.0-7.7); Basophil# 0.02 X10^3/uL; Basophil% 0.2 % (0-1); Eosinophil# 0.15 X10^3/uL; Eosinophils% 1.5 % (0-5); Hematocrit 36.2 % (37-47); Hemoglobin 11.5 g/dL (12.0-15.0); Lymphocyte # 2.86 X10^3/ul (4.0); Lymphocyte % 29.5 % (19-41); Mean Corp Hgb Conc 31.8 g/dL (32-36); Mean Corpuscular Hgb 28.3 pg (27.0-32.0); Mean Corpuscular Volume 89.2 fL (81-99); Mean Platelet Vol. 9.7 fl (6.2-12.0); Monocyte# 0.51 X10^3/uL; Monocyte% 5.3 % (0-10); NRBC Flagged by Analyzer 0 % (0-5); Neutrophil # 6.12 X10^3/uL (2.7-7.7); Platelet Count 334 K/mm3 (150-450); RBC Distribution Width CV 14.1 % (11.6-14.6); RBC Distribution Width SD 45.6 fl (35.1-43.9); Red Blood Count 4.06 M/mm3 (4.2-5.4); White Blood Count 9.7 K/mm3 (4.4-11.0)
[2019-03-08 15:50] LABS: Internal QC Validated? YES +Cl - CLEAR BKGD; Pregnancy, Urine Negative Negative
[2019-03-08 15:53] LABS: Squamous Epithelial Cells - UA 0-5 SEEN /hpf (5-10)
[2019-03-08 16:06] LABS: AST(SGOT) 18 U/L (15-37); Alanine Aminotransfer ALT/SGPT 17 U/L (13-56); Albumin, Serum 3.7 g/dL (3.2-5.0); Alkaline Phosphatase 73 U/L (45-117); Anion Gap 6 (5-15); BUN 6 mg/dL (7-18); BUN/Creat Ratio 9.1 RATIO (10-20); Calcium,Total 8.7 mg/dL (8.5-10.1); Chloride 107 mmol/L (98-107); Creatinine, Serum 0.66 mg/dL (0.55-1.02); EST Glomerular Filtration Rate 102 mL/min (>60); Est Glom Filt Rate - Afr Amer 124 mL/min (>60); Estimated Creatinine Clearance 85.75 ml/min; Globulin 3.7 g/dL (2.2-4.2); Glucose 86 mg/dL (74-106); Lipase 158 U/L (73-393); Potassium 3.3 mmol/L (3.5-5.1); Protein, Total 7.4 g/dL (6.4-8.2); Sodium Level 142 mmol/L (136-145)
[2019-03-08 17:40] VITALS: BP 155/98; PULSE 89; RESP 16; TEMP 36.8; O2SAT 100
--- NOTE | 2019-03-08 18:03 | US_ITS ---
STUDY: ULTRASOUND TRANSVAGINAL CLINICAL: Female, 48 years old. Nausea and bloating for 4 days. TECHNIQUE: Transvaginal. Transvaginal imaging is performed for improved visualization of the endometrium and adnexal regions. COMPARISON: CT the abdomen and pelvis dated March 08, 2019. FINDINGS: Normal uterine size measuring 8.9 x 3.0 x 5.0 cm. There are no myometrial masses. Normal endometrial thickness measuring 10.9 mm. There are no endometrial masses, and there is no fluid in the endometrial cavity. There is a nabothian cyst within the cervix. Normal right ovary, measuring 4.1 x 3.5 x 2.5 cm. There are multiple follicles with a dominant cyst measuring 2.5 x 2.9 x 2.8 cm. Left ovary measures 3.7 x 3.0 x4.5 cm. There is a solid nodule within left ovary measuring approximately 2.4 x 2.5 x 2.8 cm. There is no free fluid in the pelvis. Polycystic ovary disease: No. Urinary bladder is anechoic. Urinary bladder volume is 49 mL. US/Transvaginal Non- IMPRESSION: 1. Apparent solid nodule arising from left ovary. Differential considerations include an endometrioma. Neoplastic etiologies are not excluded. 2. Normal sonographic appearance of the right ovary and uterus. Electronically Signed: Marcie Leung MD at 20:33 EDT , Service support ,
[2019-03-08 18:51] VITALS: BP 155/80; PULSE 88; RESP 16; O2SAT 98
--- NOTE | 2019-03-08 20:41 | ED.RN ---
PT LEFT ROOM WITH HER BELONGINGS. IV WAS PLACED ON COUNTER. ANGIOCATH INTACT. ED DR WAS IN THE ROOM TO REVEAL RESULTS. Dafne NOEL RN [id number]
[2019-03-08 21:21] VITALS: BP 173/99; PULSE 98; RESP 16
--- NOTE | 2019-03-08 21:23 | ED.RN ---
PT ARRIVES BACK TO ROOM DR WAS INFORMED. Dafne NOEL RN [id number]
== END 2019-03-08 21:24 | disposition home or self-care (01) ==
PROVIDERS: Emergency Provider Emergency Medicine; Family Provider Internal Medicine; PCP Internal Medicine
DX: N83.9 Noninflammatory disorder of ovary, fallopian tube and broad ligament, unspecified (principal); R10.30 Lower abdominal pain, unspecified; J45.909 Unspecified asthma, uncomplicated; E03.9 Hypothyroidism, unspecified; F32.9 Major depressive disorder, single episode, unspecified; F41.9 Anxiety disorder, unspecified; M06.9 Rheumatoid arthritis, unspecified; F17.200 Nicotine dependence, unspecified, uncomplicated; Z79.899 Other long term (current) drug therapy
CPT/HCPCS: 71046; 74177; 76830; 80053; 81001; 81025; 83690; 85025; 96360; 96361; 99284; J7030; Q9967; A4216

== ENCOUNTER → 2019-06-16 12:03 | Outpatient (CLI) | payer OTHER, SELFPAY ==
--- NOTE | 2019-06-16 12:08 | RAD_ITS ---
STUDY: X-RAY - LUMBAR SPINE REASON FOR EXAM: Female, 48 years old. lower back pain radiating into right hip TECHNIQUE: 3 view(s) of the lumbar spine were obtained. COMPARISON: None FINDINGS: Normal lumbar lordosis. There is no substantial scoliosis. There is a normal alignment of the vertebrae. Normal vertebral bodies and endplates. Normal disc space heights. There is no demonstrated fracture. The soft tissue structures are unremarkable. RAD/Lumbar Spine 2 or 3 Views IMPRESSION: Normal x-ray examination of the lumbar spine. Electronically Signed: Trey Juarez MD at 9:10 EST , Service support ,
== END ==
PROVIDERS: Family Provider Internal Medicine; PCP Internal Medicine; Referring Provider Anesthesiology Pain Medicine; Visit Provider Anesthesiology Pain Medicine
DX: M54.5 Low back pain (principal)
CPT/HCPCS: 72100

== ENCOUNTER → 2021-01-19 11:59 | Outpatient (CLI) | payer OTHER, SELFPAY ==
[2019-07-24 14:41] VITALS: BMI 22.6
--- NOTE | 2021-01-19 12:03 | RAD_ITS ---
STUDY: X-RAY - LEFT KNEE REASON FOR EXAM: Left knee pain. TECHNIQUE: 4 view(s) of the knee. COMPARISON: None. FINDINGS: Normal visualized distal femur. Normal visualized proximal tibia and fibula. Normal proximal tibiofibular articulation. Normal medial femorotibial compartment. Normal lateral femorotibial compartment. Normal patellofemoral articulation. The soft tissue structures are unremarkable. RAD/Knee 4 or More Views IMPRESSION: Unremarkable x-ray examination of the left knee. Electronically Signed: Jason Contreras MD at 14:42 EDT Tel , Service support ,
--- NOTE | 2021-01-19 12:03 | RAD_ITS ---
STUDY: X-RAY - RIGHT KNEE REASON FOR EXAM: Right knee pain. TECHNIQUE: 4 view(s) of the knee. COMPARISON: None. FINDINGS: Normal visualized distal femur. Normal visualized proximal tibia and fibula. Normal proximal tibiofibular articulation. Normal medial femorotibial compartment. Normal lateral femorotibial compartment. Normal patellofemoral articulation. The soft tissue structures are unremarkable. RAD/Knee 4 or More Views IMPRESSION: Unremarkable x-ray examination of the right knee. Electronically Signed: Jason Contreras MD at 14:46 EDT Tel , Service support ,
[2021-01-19 15:03] LABS: Absolute Lymphocyte Count 2.65 X10^3/uL (0.83-4.51); Absolute Neutrophil Count 7.6 X10^3/uL (2.0-7.7); Basophil# 0.03 X10^3/uL; Basophil% 0.3 % (0-1); Eosinophil# 0.06 X10^3/uL; Eosinophils% 0.6 % (0-5); Hematocrit 38.6 % (37-47); Hemoglobin 11.7 g/dL (12.0-15.0); Lymphocyte # 2.65 X10^3/ul (0.83-4.51); Lymphocyte % 24.6 % (19-41); Mean Corp Hgb Conc 30.3 g/dL (32-36); Mean Corpuscular Hgb 25.9 pg (27.0-32.0); Mean Corpuscular Volume 85.4 fL (81-99); Mean Platelet Vol. 10.3 fl (6.2-12.0); Monocyte# 0.45 X10^3/uL; Monocyte% 4.2 % (0-10); NRBC Flagged by Analyzer 0 % (0-5); Neutrophil # 7.55 X10^3/uL (2.7-7.7); Platelet Count 429 K/mm3 (150-450); RBC Distribution Width CV 15.7 % (11.6-14.6); RBC Distribution Width SD 48.9 fl (35.1-43.9); Red Blood Count 4.52 M/mm3 (4.2-5.4); White Blood Count 10.8 K/mm3 (4.4-11.0)
[2021-01-19 15:10] LABS: Erythrocyte Sedimentation Rate 35 mm/hr (0-30)
[2021-01-19 15:21] LABS: AST(SGOT) 21 U/L (15-37); Alanine Aminotransfer ALT/SGPT 20 U/L (13-56); Alkaline Phosphatase 91 U/L (45-117); Anion Gap 3 (5-15); BUN 6 mg/dL (7-18); BUN/Creat Ratio 8.7 RATIO (10-20); Calcium,Total 9.5 mg/dL (8.5-10.1); Chloride 105 mmol/L (98-107); Creatinine, Serum 0.69 mg/dL (0.55-1.02); EST Glomerular Filtration Rate 96 mL/min (>60); Est Glom Filt Rate - Afr Amer 116 mL/min (>60); Globulin 4.1 g/dL (2.2-4.2); Glucose 105 mg/dL (74-106); Potassium 3.3 mmol/L (3.5-5.1); Protein, Total 8.1 g/dL (6.4-8.2); Rheumatoid Factor < 10.0 IU/mL (<15); Sodium Level 137 mmol/L (136-145)
[2021-01-19 16:07] LABS: Hepatitis B Surface Antibody Non-Reactive; Hepatitis B Surface Antigen Non-Reactive (Nonreactive); Hepatitis C Antibody Non-Reactive (Nonreactive)
[2021-01-21 18:38] LABS: ANTINUCLEAR ANTIBODIES DIRECT Negative (Negative)
[2021-01-22 17:02] LABS: CCP IgG Antibodies 6 units (0-19); Hepatitis B Core AB IgM Negative (Negative)
== END ==
PROVIDERS: PCP Internal Medicine; Referring Provider Internal Medicine Rheumatology; Visit Provider Internal Medicine Rheumatology
DX: M25.561 Pain in right knee (principal); M25.562 Pain in left knee; M06.4 Inflammatory polyarthropathy; Z79.899 Other long term (current) drug therapy; M79.7 Fibromyalgia; K21.9 Gastro-esophageal reflux disease without esophagitis; M21.41 Flat foot [pes planus] (acquired), right foot; E11.9 Type 2 diabetes mellitus without complications; I34.1 Nonrheumatic mitral (valve) prolapse; K58.9 Irritable bowel syndrome, unspecified; F41.9 Anxiety disorder, unspecified; J45.909 Unspecified asthma, uncomplicated; E03.9 Hypothyroidism, unspecified; E78.5 Hyperlipidemia, unspecified
CPT/HCPCS: 36415; 73564; 80053; 85025; 85652; 86038; 86140; 86200; 86431; 86705; 86706; 86803; 87340

== ENCOUNTER → 2021-02-07 | Outpatient (CLI) | payer OTHER, SELFPAY ==
[2019-07-24 14:41] VITALS: BMI 22.6
[2021-02-07 18:00] LABS: Pathologist Comment May follow
[2021-02-07 19:26] LABS: Synovial Fld Mononuclear WBC % 94.3 %; Synovial Fld Polynuclear WBC # 0.311 10^3/uL; Synovial Fld Polynuclear WBC % 5.7 %
[2021-02-07 20:37] LABS: RBC /Synovial Fluid 2133 /mm3 (0)
[2021-02-07 20:52] LABS: AUTO B FLUID DILUENT BKGD CT WBC <0.1 RBC <0.01 (W<.1,R<.01); Source- Body Fluid SYNOVIAL
[2021-02-07 20:53] LABS: Color / Synovial Fluid Yellow (Pale Yellow); Source / Synovial Fluid LEFT KNEE; Viscosity / Synovial Fluid Mod. Viscous (HIGH)
[2021-02-07 20:54] LABS: Appearance /Synovial Fluid Cloudy (CLEAR); CRYSTALS, BODY FLUID See PATH REV; Lymph 31 %; Monocyte /Synovial Fluid 69 %
[2021-02-08 12:11] LABS: Pathologist Review Reviewed
== END | disposition home or self-care (01) ==
PROVIDERS: PCP Internal Medicine; Referring Provider Internal Medicine Rheumatology; Visit Provider Internal Medicine Rheumatology
DX: M06.4 Inflammatory polyarthropathy (principal); M79.7 Fibromyalgia; M25.562 Pain in left knee; M71.20 Synovial cyst of popliteal space [Baker], unspecified knee; K21.9 Gastro-esophageal reflux disease without esophagitis; M21.41 Flat foot [pes planus] (acquired), right foot; M21.42 Flat foot [pes planus] (acquired), left foot; E11.9 Type 2 diabetes mellitus without complications; I34.1 Nonrheumatic mitral (valve) prolapse; K58.9 Irritable bowel syndrome, unspecified; F41.9 Anxiety disorder, unspecified; J45.909 Unspecified asthma, uncomplicated; E03.9 Hypothyroidism, unspecified; E78.5 Hyperlipidemia, unspecified; Z79.899 Other long term (current) drug therapy
CPT/HCPCS: 87070; 87075; 87205; 89050; 89051; 89060

== ENCOUNTER → 2021-02-16 11:53 | Outpatient (CLI) | payer OTHER, SELFPAY ==
[2019-07-24 14:41] VITALS: BMI 22.6
== END ==
PROVIDERS: PCP Internal Medicine; Referring Provider Nurse Practitioner; Visit Provider Nurse Practitioner
DX: R07.9 Chest pain, unspecified (principal)
CPT/HCPCS: 93225; 93226

== ENCOUNTER → 2021-03-16 12:25 | Outpatient (CLI) | payer OTHER, SELFPAY ==
[2019-07-24 14:41] VITALS: BMI 22.6
--- NOTE | 2021-03-16 12:33 | ECHOD_ITS ---
Reason For Study: Chest Pain Procedure This was a 2D Doppler, Color Flow transthoracic echocardiogram. The exam was of adequate technical quality. Exam performed in department. Left Ventricle Normal LV size. Left ventricular systolic function is normal. The estimated ejection fraction is 60 %. No evidence for diastolic dysfunction. No regional wall motion abnormalities noted. Right Ventricle Normal RV size. Normal systolic function. Atria Normal left atrium. Normal right atrium. No doppler evidence for ASD. Mitral Valve There is no mitral annular calcification. Normal mitral valve. Trivial mitral valve insufficiency. Tricuspid Valve Normal tricuspid valve. Trivial tricuspid valve insufficiency. Right ventricular systolic pressure estimated to be 28 mmHg. Aortic Valve Trisinus/trileaflet aortic valve. Normal aortic valve. Pulmonic Valve The pulmonic valve is not well visualized. Great Vessels The aortic root is not well visualized. Pericardium/Pleural No pericardial effusion. MMode/2D Measurements & Calculations LVIDd: 3.8 cm IVSd: 0.93 cm LA dimension: 2.6 cm LVIDs: 2.7 cm LVPWd: 0.90 cm FS: 29.2 % LAV(MOD-sp4): 31.3 ml LA A4 area: 14.2 cm2 RA A4 area: 9.8 cm2 Time Measurements MV dec time: 0.20 sec Doppler Measurements & Calculations MV E max fadi: 116.5 cm/sec Lat Peak E' Fadi: 9.6 cm/sec Med Peak E' Fadi: 9.8 cm/sec MV A max fadi: 79.8 cm/sec E/E' lat: 12.1 E/E' med: 11.9 MV E/A: 1.5 MV V2 max: 118.5 cm/sec MV P1/2t max fadi: 118.5 cm/sec Ao V2 max: 126.7 cm/sec MV max P.6 mmHg MV P1/2t: 85.8 msec Ao max P.4 mmHg MV V2 mean: 64.4 cm/sec MV dec slope: 404.3 cm/sec2 MV mean P.0 mmHg MVA(P1/2t): 2.6 cm2 MV V2 VTI: 32.7 cm LV V1 max: 89.5 cm/sec PA V2 max: 74.2 cm/sec TR max fadi: 223.6 cm/sec LV V1 max P.2 mmHg TR max P.0 mmHg ECHO/Echo Complete Interpretation Summary Left ventricular systolic function is normal. The estimated ejection fraction is 60 %. Trivial mitral valve insufficiency. Trivial tricuspid valve insufficiency. Right ventricular systolic pressure estimated to be 28 mmHg. No evidence for diastolic dysfunction. Ordering Physician: Betzaida Ferrara Referring Physician: Betzaida Ferrara Performed By: Brennen Joe RCS
[2021-03-16 12:51] VITALS: BP 97/56; PULSE 72; RESP 14; O2SAT 100; BMI 20.5
--- NOTE | 2021-03-16 13:02 | CT_ITS ---
STUDY: CARDIAC CALCIUM SCORING - CT CHEST REASON FOR EXAM: Female, 50 years old. CP RADIATION DOSAGE (If Supplied By Facility): CTDIvol = ( 12.19 ) mGy, DLP = ( 170.66 ) mGycm TECHNIQUE: Axial non-enhanced images were acquired through the heart for the sole purpose of measuring coronary artery calcium. Individualized dose optimization techniques were used for this CT. COMPARISON: None. FINDINGS: Visualized surrounding anatomy: Normal. Left Main Coronary Artery: 0 Left Anterior Descending Artery: 0 Left Circumflex Artery: 0 Right Coronary Artery: 0 Pericardial effusion is noted which may be further assessed with echocardiogram if clinically indicated Total Calcium Score: 0 CT/Limited Chest CT w/CCTA IMPRESSION: A Calcium Score of 0 places the patient in the approximate 50 percentile, based on the POOL data calculator. Please go to: www.pool-nhlbi.org/Calcium/input.aspx , for a description of the calculator. Electronically Signed: Mikal Mesa MD at 20:43 EDT , Service support ,
--- NOTE | 2021-03-16 17:27 | CA.SCORE ---
Calcium Scoring Date of Study:: 03/16/21 Coronary Calcium Scoring: High-resolution Computed Tomographic imaging of the chest was performed on 03/16/2021 with particular attention paid to the coronary arteries. Images from the examination were analyzed for the presence and extent of coronary artery calcification , using coronary calcium quantification software. The patient tolerated the procedure well and there were no complications. The results of the coronary calcification analysis are provided below. Findings Coronary Artery Left Main (LM): 0 Left Anterior Descending (LAD): 0 Left Circumflex (LCX): 0 Right Coronary Artery (RCA): 0 Total Agatston Score: 0 Percentile Ranking: According to prepublished reference tables 50% of patients of the same gender/similar age had the same/lower scores. Calcium Scoring Interpretation: 0 No identifiable atherosclerotic plaque. Very low cardiovascular disease risk. <5% chance of presence coronary artery disease A Negative Examination 1-10 Minimal Plaque burden. Significant coronary artery disease very unlikely. 11-100 Mild plaque burden. Likely mild or minimal coronary atherosclerosis. 101-400 Moderate plaque burden Moderate non-obstructive coronary artery disease highly likely. Over 400 Extensive plaque burden. High likelihood of at least one significant coronary stenosis (>50% diameter) Calcium Score: 0 Negative Examination Conclusion: Can you cardiovascular risk factor evaluation care as deemed appropriate. This note was generated using a voice recognition system and there may be incorrect words, spelling or punctuation that were not noted when reviewing the office note prior to saving.
== END ==
PROVIDERS: PCP Internal Medicine; Referring Provider Nurse Practitioner; Visit Provider Nurse Practitioner
DX: R07.9 Chest pain, unspecified (principal)
CPT/HCPCS: 75571; 76380; 93306

== ENCOUNTER → 2021-03-29 12:08 | Outpatient (CLI) | payer OTHER, SELFPAY ==
[2021-03-29 15:07] LABS: Absolute Lymphocyte Count 2.57 X10^3/uL (0.83-4.51); Absolute Neutrophil Count 6.4 X10^3/uL (2.0-7.7); Basophil# 0.03 X10^3/uL; Basophil% 0.3 % (0-1); Eosinophil# 0.12 X10^3/uL; Eosinophils% 1.3 % (0-5); Hemoglobin 13.1 g/dL (12.0-15.0); Lymphocyte # 2.57 X10^3/ul (0.83-4.51); Mean Corp Hgb Conc 31.2 g/dL (32-36); Mean Corpuscular Hgb 28.7 pg (27.0-32.0); Mean Corpuscular Volume 91.9 fL (81-99); Monocyte# 0.41 X10^3/uL; Monocyte% 4.3 % (0-10); NRBC Flagged by Analyzer 0 % (0-5); Neutrophil # 6.35 X10^3/uL (2.7-7.7); Neutrophil % 66.8 % (47-70); Platelet Count 378 K/mm3 (150-450); RBC Distribution Width CV 15.9 % (11.6-14.6); RBC Distribution Width SD 53.8 fl (35.1-43.9); Red Blood Count 4.57 M/mm3 (4.2-5.4); White Blood Count 9.5 K/mm3 (4.4-11.0)
[2021-03-29 15:25] LABS: ALB/GLOB Ratio 1.1 RATIO (0.9-2.4); AST(SGOT) 24 U/L (15-37); Alanine Aminotransfer ALT/SGPT 25 U/L (13-56); Alkaline Phosphatase 72 U/L (45-117); Anion Gap 3 (5-15); BUN 12 mg/dL (7-18); BUN/Creat Ratio 18.7 RATIO (10-20); Calcium,Total 9.2 mg/dL (8.5-10.1); Chloride 104 mmol/L (98-107); Creatinine, Serum 0.64 mg/dL (0.55-1.02); EST Glomerular Filtration Rate 105 mL/min (>60); Est Glom Filt Rate - Afr Amer 127 mL/min (>60); Globulin 3.8 g/dL (2.2-4.2); Glucose 88 mg/dL (74-106); Protein, Total 7.8 g/dL (6.4-8.2); Sodium Level 138 mmol/L (136-145)
== END ==
PROVIDERS: PCP Internal Medicine; Referring Provider Internal Medicine Rheumatology; Visit Provider Internal Medicine Rheumatology
DX: M06.4 Inflammatory polyarthropathy (principal); M79.7 Fibromyalgia; M25.562 Pain in left knee; M71.20 Synovial cyst of popliteal space [Baker], unspecified knee; K21.9 Gastro-esophageal reflux disease without esophagitis; M21.41 Flat foot [pes planus] (acquired), right foot; E11.9 Type 2 diabetes mellitus without complications; I34.1 Nonrheumatic mitral (valve) prolapse; K58.9 Irritable bowel syndrome, unspecified; F32.9 Major depressive disorder, single episode, unspecified; F41.9 Anxiety disorder, unspecified; J45.909 Unspecified asthma, uncomplicated; E03.9 Hypothyroidism, unspecified; E78.5 Hyperlipidemia, unspecified; Z79.899 Other long term (current) drug therapy
CPT/HCPCS: 36415; 80053; 85025

== ENCOUNTER 2021-08-25 09:51 | Outpatient (CLI) | payer OTHER, SELFPAY ==
--- NOTE | 2021-08-25 10:00 | US_ITS ---
STUDY: ULTRASOUND OF THE FEMALE PELVIS - COMPLETE REASON FOR EXAM: Female, 51 years old. BLOATING LMP: 08/23/2021. TECHNIQUE: Transabdominal and Transvaginal TECHNICAL QUALITY: Adequate. COMPARISON: Comparison is made with prior study 03/08/2000 FINDINGS: The uterus is anteverted and is in a midline position. The uterus measures 10.6 cm x 5.1 cm x 2.8 cm. There is a Nabothian cyst of the cervix. The endometrium measures 3 mm in thickness, and is hyperechoic. There is no demonstrated endometrial mass. There is a 1.5 cm x 1.1 cm x 1.2 cm fibroid. I.U.D. - The patient does not have an I.U.D. The right ovary is visualized. The right ovary measures 2.6 cm x 2.7 cm x 2.1 cm. There is a 1.1 cm x 1.8 cm x 1.2 cm follicle. There is no visualized right adnexal mass or complex lesion. There is normal arterial and normal venous vascularity. The left ovary is visualized. The left ovary measures 1.4 cm x 1.5 cm x 0.6 cm. There is no left ovarian cyst or ovarian mass. There is no visualized left adnexal mass or complex lesion. There is normal arterial and normal venous vascularity. There is no fluid in the cul-de-sac. The pre void volume of the bladder was 431 ml. US/Pelvic (Non ) IMPRESSION: 1.5 cm x 1.1 cm x 1.2 cm uterine fibroid. Dominant follicle in the right ovary. Electronically Signed: Timothy James MD at 12:02 EST ,
--- NOTE | 2021-08-25 10:30 | US_ITS ---
STUDY: ULTRASOUND OF THE FEMALE PELVIS - COMPLETE REASON FOR EXAM: Female, 51 years old. BLOATING LMP: 08/23/2021. TECHNIQUE: Transabdominal and Transvaginal TECHNICAL QUALITY: Adequate. COMPARISON: Comparison is made with prior study 03/08/2000 FINDINGS: The uterus is anteverted and is in a midline position. The uterus measures 10.6 cm x 5.1 cm x 2.8 cm. There is a Nabothian cyst of the cervix. The endometrium measures 3 mm in thickness, and is hyperechoic. There is no demonstrated endometrial mass. There is a 1.5 cm x 1.1 cm x 1.2 cm fibroid. I.U.D. - The patient does not have an I.U.D. The right ovary is visualized. The right ovary measures 2.6 cm x 2.7 cm x 2.1 cm. There is a 1.1 cm x 1.8 cm x 1.2 cm follicle. There is no visualized right adnexal mass or complex lesion. There is normal arterial and normal venous vascularity. The left ovary is visualized. The left ovary measures 1.4 cm x 1.5 cm x 0.6 cm. There is no left ovarian cyst or ovarian mass. There is no visualized left adnexal mass or complex lesion. There is normal arterial and normal venous vascularity. There is no fluid in the cul-de-sac. The pre void volume of the bladder was 431 ml. US/Transvaginal Non- IMPRESSION: 1.5 cm x 1.1 cm x 1.2 cm uterine fibroid. Dominant follicle in the right ovary. Electronically Signed: Timothy James MD at 12:02 EST ,
== END 2021-08-25 23:59 | disposition home or self-care (01) ==
PROVIDERS: PCP Nurse Practitioner; Referring Provider Nurse Practitioner; Visit Provider Nurse Practitioner
DX: D25.9 Leiomyoma of uterus, unspecified (principal); N88.8 Other specified noninflammatory disorders of cervix uteri; N83.01 Follicular cyst of right ovary; R14.0 Abdominal distension (gaseous)
CPT/HCPCS: 76830; 76856

== ENCOUNTER 2021-08-26 07:21 | Outpatient (CLI) | payer OTHER, SELFPAY ==
--- NOTE | 2021-08-26 07:25 | US_ITS ---
EXAM: US SOFT TISSUES HEAD AND NECK, THYROID CLINICAL INDICATION: NON-TOXIC GOITER TECHNIQUE: Greyscale and color doppler imaging was performed of the thyroid gland. This report was created using [employer] report generation technology. COMPARISON: 04/12/2015 FINDINGS: LEFT THYROID LOBE: Small, heterogeneous left thyroid lobe. No solid or cystic nodules. Homogeneous echotexture with normal vascularity. RIGHT THYROID LOBE: Small, heterogeneous right thyroid lobe. No solid or cystic nodules. Homogeneous echotexture with normal vascularity. ISTHMUS: Unremarkable. No thyroid nodules are present. US/Thyroid IMPRESSION: Small, heterogeneous thyroid gland but no solid or cystic nodules. Electronically Signed: Victor Manuel Lala MD ([facility]) at 8:58 EST ,
--- NOTE | 2021-08-26 07:25 | US_ITS ---
EXAM: US ABDOMEN COMPLETE CLINICAL INDICATION: BLOATING TECHNIQUE: Real-time ultrasound of the abdomen with image documentation. This report was created using [employer] report generation technology. COMPARISON: Ultrasound 07/10/2013. FINDINGS: LIVER: Unremarkable. There is normal echotexture. No focal hepatic lesion. No intrahepatic biliary ductal dilation. GALLBLADDER: Cholecystectomy. COMMON BILE DUCT: Unremarkable as visualized. The proximal common bile duct is within normal limits for the patient''s age. PANCREAS: Unremarkable as visualized. No focal abnormality is demonstrated in the pancreas. No pancreatic ductal dilatation. KIDNEYS: Unremarkable. There is no hydronephrosis. No shadowing calculus. No focal lesion or perinephric collection is demonstrated. SPLEEN: Unremarkable. The spleen is normal in size and homogeneous in echotexture. AORTA: Unremarkable. Submitted longitudinal images of the intra-abdominal aorta demonstrate no gross abnormalities and are unremarkable. INFERIOR VENA CAVA: Unremarkable. The IVC is patent. FREE FLUID: There is no free fluid. US/Abdomen Complete IMPRESSION: No hepatic masses or biliary dilation. No ascites seen. Electronically Signed: Victor Manuel Lala MD ([place]) at 8:56 EST ,
== END 2021-08-26 23:59 | disposition home or self-care (01) ==
PROVIDERS: PCP Nurse Practitioner; Referring Provider Nurse Practitioner; Visit Provider Nurse Practitioner
DX: E04.9 Nontoxic goiter, unspecified (principal); R14.0 Abdominal distension (gaseous)
CPT/HCPCS: 76536; 76700

== ENCOUNTER → 2022-04-10 | Outpatient (CLI) | payer OTHER, SELFPAY ==
[2022-04-10 15:31] LABS: ALB/GLOB Ratio 0.9 RATIO (0.9-2.4); AST(SGOT) 58 U/L (15-37); Alanine Aminotransfer ALT/SGPT 107 U/L (13-56); Albumin, Serum 3.6 g/dL (3.2-5.0); Alkaline Phosphatase 70 U/L (45-117); Anion Gap 5 (5-15); BUN 11 mg/dL (7-18); BUN/Creat Ratio 17.3 RATIO (10-20); Calcium,Total 9.4 mg/dL (8.5-10.1); Chloride 107 mmol/L (98-107); Creatinine, Serum 0.64 mg/dL (0.55-1.02); EST Glomerular Filtration Rate 106 mL/min (>60); Est Glom Filt Rate - Afr Amer 128 mL/min (>60); Globulin 4.1 g/dL (2.2-4.2); Glucose 124 mg/dL (74-106); Potassium 3.6 mmol/L (3.5-5.1); Protein, Total 7.7 g/dL (6.4-8.2); Sodium Level 142 mmol/L (136-145)
[2022-04-10 15:46] LABS: Absolute Lymphocyte Count 2.49 X10^3/uL (0.83-4.51); Absolute Neutrophil Count 3.5 X10^3/uL (2.0-7.7); Basophil# 0.03 X10^3/uL; Basophil% 0.4 % (0-1); Eosinophil# 0.14 X10^3/uL; Eosinophils% 2.1 % (0-5); Hematocrit 37.4 % (37-47); Hemoglobin 12.1 g/dL (12.0-15.0); Lymphocyte # 2.49 X10^3/ul (0.83-4.51); Lymphocyte % 37.3 % (19-41); Mean Corp Hgb Conc 32.4 g/dL (32-36); Mean Corpuscular Hgb 28.9 pg (27.0-32.0); Mean Corpuscular Volume 89.3 fL (81-99); Mean Platelet Vol. 10.3 fl (6.2-12.0); Monocyte# 0.47 X10^3/uL; NRBC Flagged by Analyzer 0 % (0-5); Neutrophil # 3.53 X10^3/uL (2.7-7.7); Neutrophil % 52.9 % (47-70); Platelet Count 309 K/mm3 (150-450); RBC Distribution Width CV 12.5 % (11.6-14.6); RBC Distribution Width SD 41.2 fl (35.1-43.9); Red Blood Count 4.19 M/mm3 (4.2-5.4); White Blood Count 6.7 K/mm3 (4.4-11.0)
[2022-04-10 15:47] LABS: Erythrocyte Sedimentation Rate 21 mm/hr (0-30)
== END | disposition home or self-care (01) ==
PROVIDERS: PCP Internal Medicine; Referring Provider Internal Medicine Rheumatology; Visit Provider Internal Medicine Rheumatology
DX: M06.4 Inflammatory polyarthropathy (principal); E11.9 Type 2 diabetes mellitus without complications; M71.20 Synovial cyst of popliteal space [Baker], unspecified knee; K21.9 Gastro-esophageal reflux disease without esophagitis; M21.41 Flat foot [pes planus] (acquired), right foot; M21.42 Flat foot [pes planus] (acquired), left foot; I34.1 Nonrheumatic mitral (valve) prolapse; K58.9 Irritable bowel syndrome, unspecified; F41.9 Anxiety disorder, unspecified; J45.909 Unspecified asthma, uncomplicated; E03.9 Hypothyroidism, unspecified; E78.5 Hyperlipidemia, unspecified; Z79.899 Other long term (current) drug therapy
CPT/HCPCS: 36415; 80053; 85025; 85652; 86140

== ENCOUNTER → 2022-04-12 | Outpatient (CLI) | payer OTHER, SELFPAY ==
[2022-04-12 11:05] LABS: Hepatitis B Surface Antibody Non-Reactive; Hepatitis B Surface Antigen Non-Reactive (Nonreactive); Hepatitis C Antibody Non-Reactive (Nonreactive)
[2022-04-14 19:07] LABS: QNTFERON TB Mitogen Value > 10.00 IU/mL (.); QNTFERON TB Nil Value 0.03 IU/mL (.); QNTFERON TB1+ Ag Value 0.04 IU/mL (.); QNTFERON TB2+ Ag Value 0.21 IU/mL (.)
[2022-04-16 09:08] LABS: QNTIFERON TB Positive Criteria Negative (Negative)
== END | disposition home or self-care (01) ==
LOC: MTLAB 07:58
PROVIDERS: PCP Internal Medicine; Referring Provider Internal Medicine Rheumatology; Visit Provider Internal Medicine Rheumatology
DX: M06.4 Inflammatory polyarthropathy (principal); Z79.899 Other long term (current) drug therapy
CPT/HCPCS: 36415; 86480; 86706; 86803; 87340

== ENCOUNTER → 2022-05-04 | Outpatient (CLI) | payer OTHER, SELFPAY ==
--- NOTE | 2022-05-04 07:49 | US_ITS ---
STUDY: ABDOMINAL ULTRASOUND - RIGHT UPPER QUADRANT REASON FOR VISIT: Female, 51 years old ELEVATED LFT''S TECHNIQUE: Ultrasound evaluation of the right upper quadrant was performed with real-time and static rodriguez-scale imaging. TECHNICAL QUALITY: Adequate. COMPARISON: 08/26/2021 FINDINGS: Liver: The liver measures 18.5 cm. There is increased echogenicity consistent with fatty infiltration. The bile ducts are within normal limits. There is hepatic color flow. The direction of portal flow is hepatopetal. There is no demonstrated mass lesion. Gallbladder: The patient is status post cholecystectomy. Common Bile Duct (C.B.D.): The common bile duct measures 4.5 mm. Pancreas: Normal size of the head, body and tail of the pancreas. There is normal echogenicity of the pancreas. There is no demonstrated pancreatic mass or cyst. Right Kidney: Normal size of the right kidney. The right kidney measures 10.9 x 5.8 x 4.2 cm. Normal renal cortex. The right cortex measures 1.2 cm. There is no demonstrated renal mass or cyst. There is no right hydronephrosis. US/Liver IMPRESSION: Fatty liver, no discrete lesion Previous cholecystectomy Electronically Signed: Khalif Johnston MD at 9:34 EDT ,
== END | disposition home or self-care (01) ==
LOC: US 07:47
PROVIDERS: PCP Internal Medicine; Visit Provider Internal Medicine Rheumatology
DX: K76.0 Fatty (change of) liver, not elsewhere classified (principal); Z90.49 Acquired absence of other specified parts of digestive tract
CPT/HCPCS: 76705